=== PATIENT | male | born 1945 | race Caucasian/White ===

== ENCOUNTER 2019-12-24 12:13 | Outpatient (REF) | payer OTHER, SELFPAY ==
[2019-12-24 14:21] LABS: Prostate Specific Antigen 5.79 ng/mL (<0.05-4.0)
== END 2019-12-24 12:14 | disposition home or self-care (01) ==
LOC: HO.LAB 12:13
PROVIDERS: PCP Physician Assistant Medical; Visit Provider Urology
DX: C61 Malignant neoplasm of prostate (principal)
CPT/HCPCS: 84153

== ENCOUNTER → 2020-02-07 10:14 | Outpatient (BNVA) | payer OTHER, SELFPAY | PROVIDERS: PCP Physician Assistant Medical; Visit Provider Urology | DX: Z76.89 Persons encountering health services in other specified circumstances (principal) ==

== ENCOUNTER 2020-06-23 08:56 | Outpatient (REF) | payer MEDICARE, SELFPAY ==
[2020-06-23 10:26] LABS: Prostate Specific Antigen 6.05 ng/mL (<0.05-4.0)
== END 2020-06-23 08:57 | disposition home or self-care (01) ==
LOC: HO.LAB 08:56
PROVIDERS: PCP Physician Assistant Medical; Visit Provider Urology
DX: Z12.5 Encounter for screening for malignant neoplasm of prostate (principal); R97.20 Elevated prostate specific antigen [PSA]; C61 Malignant neoplasm of prostate
CPT/HCPCS: 36415; 84153

== ENCOUNTER → 2020-07-04 14:50 | Outpatient (BNVA) | payer OTHER, SELFPAY | PROVIDERS: Visit Provider Urology | DX: C61 Malignant neoplasm of prostate (principal) | CPT/HCPCS: 99212 ==

== ENCOUNTER 2020-09-29 14:59 | Outpatient (REF) | payer OTHER, SELFPAY ==
[2020-10-01 22:36] LABS: Percent Free Prostate Spec Ag 28 % (calc) (>25); Prostate Specific Ag Total 7.1 ng/mL (< OR = 4.0)
== END 2020-09-29 15:00 | disposition home or self-care (01) ==
LOC: HO.LAB 14:59
PROVIDERS: Visit Provider Urology
DX: Z12.5 Encounter for screening for malignant neoplasm of prostate (principal); C61 Malignant neoplasm of prostate
CPT/HCPCS: 36415; 84153; 84154

== ENCOUNTER → 2020-10-07 09:09 | Outpatient (BNVA) | payer MEDICARE, SELFPAY | PROVIDERS: PCP Physician Assistant Medical; Visit Provider Urology | CPT/HCPCS: Q3014 ==

== ENCOUNTER 2020-12-31 12:48 | Outpatient (REF) | payer OTHER, SELFPAY ==
[2020-12-31 14:54] LABS: PSA,Total (Free>4and<10) 5.71 ng/mL (0.00-4.00)
[2021-01-05 11:56] LABS: Free Prostate Spec Ag 1.2 ng/mL; Percent Free Prostate Spec Ag 24 % (calc) (>25)
== END 2020-12-31 12:49 | disposition home or self-care (01) ==
LOC: HO.LAB 12:48
PROVIDERS: Visit Provider Urology
DX: C61 Malignant neoplasm of prostate (principal)
CPT/HCPCS: 36415; 84153; 84154

== ENCOUNTER → 2021-01-06 08:41 | Outpatient (BNVA) | payer OTHER, SELFPAY | PROVIDERS: PCP Physician Assistant Medical; Visit Provider Urology ==

== ENCOUNTER 2021-05-26 13:28 | Outpatient (REF) | payer OTHER, SELFPAY ==
[2021-05-26 15:11] LABS: PSA,Total (Free>4and<10) 7.45 ng/mL (0.00-4.00)
[2021-05-28 11:47] LABS: Free Prostate Spec Ag 1.5 ng/mL; Percent Free Prostate Spec Ag 19 % (calc) (>25); Prostate Specific Ag Total 7.7 ng/mL (< OR = 4.0)
== END 2021-05-26 13:29 | disposition home or self-care (01) ==
LOC: HO.LAB 13:28
PROVIDERS: PCP Physician Assistant Medical; Visit Provider Urology
DX: Z12.5 Encounter for screening for malignant neoplasm of prostate (principal); C61 Malignant neoplasm of prostate
CPT/HCPCS: 36415; 84153; 84154

== ENCOUNTER → 2021-06-02 13:11 | Outpatient (BNVA) | payer OTHER, SELFPAY | PROVIDERS: PCP Physician Assistant Medical; Visit Provider Urology | DX: Z13.89 Encounter for screening for other disorder (principal) ==

== ENCOUNTER 2021-11-18 15:14 | Outpatient (REF) | payer OTHER, SELFPAY ==
[2021-11-18 16:59] LABS: PSA,Total (Free>4and<10) 8.22 ng/mL (0.00-4.00)
[2021-11-19 11:07] LABS: Percent Free Prostate Spec Ag 22 % (calc) (>25); Prostate Specific Ag Total 9.3 ng/mL (< OR = 4.0)
== END 2021-11-18 15:15 | disposition home or self-care (01) ==
LOC: HO.LAB 15:14
PROVIDERS: PCP Physician Assistant Medical; Visit Provider Urology
DX: N40.1 Benign prostatic hyperplasia with lower urinary tract symptoms (principal); N13.8 Other obstructive and reflux uropathy; C61 Malignant neoplasm of prostate
CPT/HCPCS: 36415; 84153; 84154

== ENCOUNTER → 2022-03-24 14:07 | Outpatient (BNVA) | payer OTHER, SELFPAY | PROVIDERS: PCP Physician Assistant Medical; Visit Provider Urology | DX: Z13.89 Encounter for screening for other disorder (principal) ==

== ENCOUNTER 2022-06-18 14:15 | Outpatient (REF) | payer OTHER, SELFPAY ==
[2022-06-18 15:03] LABS: Blood Urea Nitrogen 18 mg/dL (9-16); Estimated Glomerular Filt Rate > 60
[2022-06-18 15:35] LABS: PSA,Total (Free>4and<10) 5.92 ng/mL (0.00-4.00)
[2022-06-21 11:03] LABS: Free Prostate Spec Ag 1.4 ng/mL; Percent Free Prostate Spec Ag 23 % (calc) (>25); Prostate Specific Ag Total 6.1 ng/mL (< OR = 4.0)
== END 2022-06-18 14:16 | disposition home or self-care (01) ==
LOC: HO.LAB 14:15
PROVIDERS: Visit Provider Urology
DX: Z12.5 Encounter for screening for malignant neoplasm of prostate (principal); R39.15 Urgency of urination; C61 Malignant neoplasm of prostate
CPT/HCPCS: 36415; 82565; 84153; 84154; 84520

== ENCOUNTER 2022-09-09 13:47 | Outpatient (REF) | payer OTHER, SELFPAY ==
[2022-09-09 16:08] LABS: Prostate Specific Antigen 7.14 ng/mL (<0.05-4.0)
== END 2022-09-09 13:48 | disposition home or self-care (01) ==
LOC: HO.LAB 13:47
PROVIDERS: PCP Physician Assistant Medical; Visit Provider Urology
DX: Z12.5 Encounter for screening for malignant neoplasm of prostate (principal); C61 Malignant neoplasm of prostate
CPT/HCPCS: 36415; 84153

== ENCOUNTER 2022-09-15 15:27 | Outpatient (AMB) | payer OTHER, SELFPAY ==
--- NOTE | 2022-09-15 15:29 | MHC.OFFVIS ---
Intake Intake Visit Reasons: PSA Follow Up(SET) Intake Note: Pt presents to the office today for a PSA follow up. Allergies No Known Allergies [No Known Allergies*] Allergy (Verified 09/15/22 15:29) Medication List - Last Reconciled 09/15/22 by Chas Rogel MD sacubitril-valsartan 24-26 mg (Entresto) 1 tab PO ONCE sacubitril-valsartan 49-51 mg (Entresto) 1 tab PO ONCE HPI HPI Comments History of Present Illness Details Michel is a pleasant male. He is a patient of Dr. Monte. He is seen for follow urologic condition - prostate cancer - lower urinary tract symptoms PSA slight rise Has been off finasteride Discussed restarting Like to repeat PSA in 4 months GALDINO normal Prostate cancer group 2 current therapy active surveillance Diagnosis in July 2014 Initial diagnosis Lacey 6 and 3+4=7 Initial therapy active surveillance - did not want to pursue aggressive intervention - finasteride PSA monitoring ranges from 5.8-6.3 PSA 06/27 6.05, 09/27 7.1 28%, 12/28 5.0 24%, 05/29 7.7 19%, 11/28 8.2 22%, 06/29 5.9 23%, 09/29 7.1 Imaging - 12/29 MRI Showed 40 g prostate with PI-RADS 2. No clinically significant regions identified. Thickened bladder with prostatomegaly and bladder protrusion Continue with PSA monitoring [facility] Medical History Prostate cancer Urinary frequency Review of Systems Const Denies chills and Denies fever(s) Card Reports no additional complaints and Denies syncope Resp Denies cough GI Denies abdominal pain and Denies heartburn Reports as per HPI and Denies change in libido Neuro Denies syncope Psych Denies change in libido Endo Denies change in libido Physical Exam Const General: cooperative, healthy appearing, comfortable and no acute distress Orientation/consciousness: patient oriented x3 HEENT Face and sinus: Yes normal facial exam Mouth: moist mucous membranes Neck Neck: Yes normal visual inspection, Yes full ROM and Yes trachea midline Chest Chest palpation & inspection: normal inspection of the chest Resp Effort & Inspection: normal respiratory effort, able to speak in complete sentences and no respiratory distress GI Inspection: Yes normal to inspection Rectal Exam - Male: Yes normal sphincter tone and Yes prostate normal Male General Exam: Yes normal external exam Penis: normal penis and circumcised Meatus: meatus normal Scrotum: scrotum normal Testes: Testes normal Back/Spine/Pelvis Cervical Spine: normal cervical lordosis Thoracic/Lumbar Spine: thoracic and lumbar spine normal to inspection Skin General skin exam: no rashes or lesions noted Neuro General: patient oriented x3, gait normal, tone normal and moves all extremities Extrem General: Yes normal to inspection and Yes capillary refill normal Assessment & Plan Assessment & Plan (1) Prostate cancer: Comment: May 2014 - Gl 3 + 3, Gl 3 + 4 Therapy active surveillance Code(s): C61 - Malignant neoplasm of prostate Plan Four month follow-up PSA Orders: Orders Prostate Specific Antigen 09/09/22 C61 - Malignant neoplasm of prostate Prostate Specific Antigen 4 Months C61 - Malignant neoplasm of prostate Patient Instructions: Imaging studies, laboratory and physical exam results were discussed and reviewed in detail. No major barriers to patient understanding were identified. An opportunity to ask questions regarding the treatment plan was provided. All questions were answered. The patient expressed understanding and agreement with the above treatment plan. The patient is aware they should contact our office by phone for worsening of their current condition or the appearance of new urologic symptoms. Compliance is encouraged with any medications and followup testing that is ordered. It is a privilege to participate in the urologic care of your patient. If you have any questions or concerns regarding treatment for the above conditions, or other urologic issues, please do not hesitate to contact me. The office telephone contact is [phone]. This note is constructed using voice recognition software. While every effort has been made to ensure accuracy single needle tufting machine operator errors may have been included. Yours sincerely, Dr Chas Rogel MD, [facility] - Urology Providers of Expert, Compassionate Care for the Genitourinary System Coding Level of Care Code Est Pt Level 4 (97853) Diagnoses Prostate cancer C61
== END 2022-09-15 16:04 | disposition home or self-care (01) ==
PROVIDERS: Visit Provider Urology
DX: C61 Malignant neoplasm of prostate (principal)
CPT/HCPCS: 99214

== ENCOUNTER → 2022-09-15 15:27 | Outpatient (BNVA) | payer OTHER, SELFPAY | PROVIDERS: Visit Provider Urology | DX: C61 Malignant neoplasm of prostate (principal) | CPT/HCPCS: 99212 ==

== ENCOUNTER 2024-07-31 13:35 | Outpatient (REF) | payer OTHER, SELFPAY ==
[2024-07-31 15:31] LABS: Prostate Specific Antigen 7.62 ng/mL (<0.05-4.0)
== END 2024-07-31 13:36 | disposition home or self-care (01) ==
LOC: HO.LAB 13:35
PROVIDERS: PCP Physician Assistant Medical; Visit Provider Urology
DX: Z12.5 Encounter for screening for malignant neoplasm of prostate (principal)
CPT/HCPCS: 36415; 84153

== ENCOUNTER 2024-08-03 15:24 | Outpatient (AMB) | payer OTHER, SELFPAY ==
--- OUTSIDE RECORDS SUMMARY | 2024-03-08 07:00 | XMS_ITS | Encounter Summary ---
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 Role Phone KHUSHI TAPIA Primary [...] Name Patient's Relationship to Policy Roa AETNA [facility] (WNR) MEDICARE ADVANTAGE [facility] ([facility]) Feb 07, 2021 [id number] [phone] CYNTHIA JOSÉ PATIENT MEDICARE (WNR) MEDICARE (M) PART B Aug 07, 1998 PART B [id number] CYNTHIA JOSÉO PATIENT MEDICARE (WNR) MEDICARE (M) PART B Aug 07, 1998 PART B [id number] ARNAV,CYNTHIA DECKERO PATIENT MEDICARE (WNR) MEDICARE (M) PART B Aug 07, 1998 PART B [id number] [phone] CYNTHIA JOSÉO PATIENT MEDICARE (WNR) MEDICARE (M) PART B Aug 07, 1998 PART B [id number] 22A ARNAV,CYNTHIA DECKERO PATIENT MEDICARE (WNR) MEDICARE (M) PART B Aug 07, 1997 PART B [id number] 22A ARNAV,CYNTHIA IDIO PATIENT MEDICARE (WNR) MEDICARE (M) PART A Oct 08, 1996 PART A [id number] 22A ARNAV,CYNTHIA IDIO PATIENT MEDICARE (WNR) MEDICARE (M) PART A Oct 08, 1996 PART A [id number] ARNAV,CYNTHIA IDIO PATIENT MEDICARE (WNR) MEDICARE (M) PART A Oct 08, 1996 PART A [id number] [phone] ARNAV,CYNTHIA IDIO PATIENT MEDICARE (WNR) MEDICARE (M) PART A Oct 08, 1996 PART A [id number] ARNAV,CYNTHIA IDIO PATIENT MEDICARE (WNR) MEDICARE (M) PART A Oct 08, 1996 PART A [id number] [phone] CYNTHIA JOSÉ PATIENT Selected Encounter This section includes the information on record at [place] for the Encounter. Date/Time Encounter Type Encounter Description Reason Pro vider Source Mar 08, 2024 11:00 AM OFFICE O/P EST MOD 30 MIN GASTROENTEROLOGY ICD-10-CM R19.4 Change in bowel habit [facility] Encounter Template Text not used by [place] Assessments - Encounter Diagnoses This section includes the primary and secondary diagnoses documented for the Encounter. Date/Time Primary/Secondary Diagnosis Diagnosis Name Provider Source Mar 08, 2024 01:01 PM PRIMARY Change in bowel habit [facility] Mar 08, 2024 01:01 PM SECONDARY Carcinoma in situ of prostate [facility] Mar 08, 2024 01:01 PM SECONDARY Constipation, unspecified [facility]PH [facility] Mar 08, 2024 01:01 PM SECONDARY Diarrhea, unspecified [facility]ANDOLPH [facility] Plan of Treatment: Future Appointments (+ 6 months) and Future Tests (+/- 45 days) The Plan of Treatment section includes future care activities for the patient from all [facility] treatment[facility]ilities. This section includes future appointments and future orders which are active, pending or scheduled. Future Appointments This section includes appointments that were scheduled to occur 6 months from the date of the Encounter, up to a maximum of 20 appointments. The data comes from all [place] treatment facilities. Appointment Date/Time Appointment Type Appointme nt Facility Name Mar 30, 2024 08:15 AM AMBULATORY - MEDICINE [facility] Apr 19, 2024 01:00 PM AMBULATORY - MEDICINE [facility] Apr 25, 2024 11:00 AM AMBULATORY - SURGERY [facility] May 16, 2024 01:00 PM AMBULATORY - MEDICINE [facility] Jun 04, 2024 11:00 AM [place]ICINE [place] [facility] [place] [facility] June 07, 2024 02:30 PM AMBULATORY - MEDICINE [facility] June 13, 2024 12:45 PM AMBULATORY - [place]ICINE [place] [facility] [place] [facility] Lab Results: +/- 30 days of the encounter This section includes the Chemistry and Hematology Lab Results on record with [place] for the patient. Radiology Reports and Pathology Reports are provided separately, in subsequent sections. Lab Results This section contains the Chemistry/Hematology Results that were resulted 30 days before or 30 daysafter the date of the Encounter. Date/Time Source Result Type Result - Unit Interpretation Reference Range Specimen Type Comment Mar 09, 2024 12:00 AM [facility] CALPROTECTIN, STOOL FECES Specimen Type: FECES Comment: [...] suggested for borderline values. Test performed by [employer] [address] [place] [address] Administrative Executive: Isabela Cordova MD,PHD,CHANDRIKA Test Reported by [facility], [employer], [address] [place] [address] Aldo Chinchilla M.D., Ph.D., Director of Laboratories , [facility] [id number] Ordering Provider: NAHUN RANDOLPH APRN- Report Released Date/Time: Mar 08, 2024 11:37 AM Reporting Lab: [facility] [address] [facility] [address] Performing Lab: [facility] [address] [facility] [address] CITLALY MANCUSO CALPROTECTIN, STOOL 14 Mar 09, 2024 12:00 AM [facility] GASTROINTESTINAL (GI) PANEL BIOFIRE FECES Spe cimen Type: FECES No comment entered. Ordering Provider: NAHUN RANDOLPH APRN- Report Released Date/Time: Mar 08, 2024 11:37 AM Reporting Lab: [facility] [address] [facility] [address] Performing Lab: [facility] [address] [facility] [address] CMPY (JEJUNI,COLI,UPSALIENSIS)-BIOFIRE Not Detec steph -Not Detected [...] -Not Detected Mar 09, 2024 12:00 AM [facility] FECAL LACTOFERRIN FECES Specimen Type: FECES No comment entered. Ordering Provider: NAHUN RANDOLPH Report Released Date/Time: Mar 08, 2024 11:37 AM Reporting Lab: [facility] [address] [facility] [address] Performing Lab: [facility] [address] [facility] [address] FECAL LACTOFERRIN N Mar 08, 2024 11:45 AM [facility] CELIAC DISEASE COMPREHENSIVE PANEL SERUM Spec imen Type: SERUM Comment: INTERPRETATION:No serological evidence of celiac disease. INTERPRETATION:Total serum IgA is elevated. Consider mucosal INTERPRETATION:inflammatory conditions or underlying gammopathy. tTG IGA:REFERENCE RANGE: <15.0 U/mL tTG IGA: Value Interpretation tTG IGA: <15.0 Antibody not detected tTG IGA:> or = 15.0 Antibody detected SERUM IGA:Test Performed by [facility] Allen, SERUM IGA:[facility], SERUM IGA:[id number] [place], [place] SERUM IGA:Aldo Chinchilla M.D., Ph.D., Director of Laboratories SERUM IGA: , CLIA [id number] Ordering Provider: NAHUN RANDOLPH APRN-ELMER Report Released Date/Time: Mar 08, 2024 11:37 AM Reporting Lab: [facility] [address] [facility] [address] Performing Lab: [facility] [address] [facility] [place] IGA, SERUM QUEST 349 mg/dL H 70-320 TISSUE TRANSGLUT IgA Ab <1.0 SEE DEO W INTERPRETATION SEE NOTE Mar 08, 2024 11:45 AM [facility] CBC BLOO D Specimen Type: BLOOD No comment entered. Ordering Provider: NAHUN RANDOLPH Report Released Date/Time: Mar 08, 2024 11:37 AM Reporting Lab: [facility] [address] [facility] [address] Performing Lab: [facility] [address] [facility] [address] WBC 7.1 10*3/uL 4.0-11.0 RBC 5.12 10*6/uL 4.4-5.9 HGB 14.4 g/dL 13.4-17.5 HEMATOCRIT 43.8 40-52 MCV 85.6 fL 82-98 MCH 28.2 pg 27.0-33.0 MCHC 32.9 g/dL 32.0-36.0 PLT 404 10*3/uL H 140-400 RDW-CV 15.3 H 11.5-14.5 MPV 8.7 fL 6.6-10.6 Mar 08, 2024 11:45 AM [facility] BASIC METABOLIC PANEL PLASMA Specimen Type: PL ASMA No comment entered. Ordering Provider: NAHUN RANDOLPH APRN- Report Released Date/Time: Mar 08, 2024 11:37 AM Reporting Lab: [place] [address] [address] Performing Lab: [place] [address] UREA NITROGEN 14 mg/dL 6-22 CALCIUM 8.9 mg/dL 8.5-10.5 CREATININE, SERUM OR PLASMA 0.73 mg/dL 0 .60-1.30 GLUCOSE 92 mg/dL 70-100 SODIUM (SERUM/PLASMA) 139 mmol/L 134-145 POTASSIUM 3.9 mmol/L 3.6-5.2 CHLORIDE 110 mmol/L 100-111 CO2 20 mmol/L L 21-29 EGFRCr >90 Mar 08, 2024 11:45 AM [facility] HEPATIC FUNCTION PANEL PLASMA Specimen Type: P LASMA No comment entered. Ordering Provider: NAHUN RANDOLPH APRN- Report Released Date/Time: Mar 08, 2024 11:37 AM Reporting Lab: [place] [address] [address] [facility] [address] Performing Lab: [place] [address] ALBUMIN 3.8 g/dL 3.4-5.2 ALKALINE PHOSPHATASE 61 U/L 40-150 ALT 14 U/L 0-55 AST 29 U/L 13-40 BILIRUBIN, TOTAL 0.4 mg/dL 0.2-1.2 DIRECT BILIRUBIN 0.1 mg/dL 0.0-0.5 PROTEIN, TOTAL 7.2 g/dL 6.2-8.5 A/G RATIO 1.1 Mar 08, 2024 11:45 AM [facility] MAGNESIUM PLAS MA Specimen Type: PLASMA No comment entered. Ordering Provider: NAHUN RANDOLPH Report Released Date/Time: Mar 08, 2024 11:37 AM Reporting Lab: [facility] [address] [facility] [address] Performing Lab: [facility] [address] MAGNESIUM 1.8 mg/dL 1.5-2.6 Mar 08, 2024 11:45 AM [facility] TSH PLAS MA Specimen Type: PLASMA No comment entered. Ordering Provider: NAHUN RANDOLPH Report Released Date/Time: Mar 08, 2024 11:37 AM Reporting Lab: [facility] [address] [facility] [address] Performing Lab: [facility] [address] TSH 3.8760 u[IU]/mL 0.350-4.800 Mar 08, 2024 11:45 AM [facility] SED RATE BLOO D Specimen Type: BLOOD No comment entered. Ordering Provider: NAHUN RANDOLPH Report Released Date/Time: Mar 08, 2024 11:37 AM Reporting Lab: [facility] [address] [facility] [address] Performing Lab: [facility] [address] [place] [id number] SED RATE 18 mm/h 0-20 Vital Signs: All taken on the encounter date This section contains inpatient and outpatient Vital Signs collected on the date of the Encounter. Date/Time Temperature Pulse Blood Pressure Respiratory Rate SP02 Pain Height Weight Body Mass Index Source Mar 08, 2024 10:21 AM 97.7 55 164/63 18 98 0 63 137.7 24 [facility] Advance Directives: All historical and current Section Date Range: From patient's date of to the date document was created. This section includes ALL of a patient's completed or amended [place] Advance and Rescinded Directives. The entries below indicate that a directive exists for the patient, but an actual copy is not included with this document. The data comes from all [place] facilities. Date Advance Directives Provider Source June [...] the Encounter. The data comes from all [place] treatment facilities. Date/Time Pathology Report Provider Source Mar 09, 2024 12:00 AM LR MICROBIOLOGY RE PORT: Reporting Lab: [facility] [CLIA# [id number]] [address] [place] [address] Accession [UID]: [id number] [[id number]] Received: Mar 09, 2024@13:43 Collection sample: STOOL Collection date: Mar 09, 2024 00:00 Site/Specimen: FECES Provider: NAHUN RANDOLPH Test(s) ordered: O&P (STOOL)................... completed: Mar 15, 2024 07:30 * PARASITOLOGY FINAL REPORT => Mar 15, 2024 07:30 TECH CODE: [id number] Parasitology Remark(s): NO OVA AND PARASITES SEEN PERFORMED BY:[employer] [place], [address] [address] [place], [place] =--=--=--=--=--=--=--=--=- -=--=--=--=--=--=--=--=--= --=--=--=--=--=--=--=--=-- Performing Laboratory: Parasitology Report Performed By: [facility] [CLIA# [id number]] [address] [place] [address] ANSHUL DURANT [facility] Mar 09, 2024 12:00 AM LR MICROBIOLOGY RE PORT: Reporting Lab: [facility] [CLIA# [id number]] [address] [place] [address] Accession [UID]: [id number] [[id number]] Received: Mar 09, 2024@13:43 Collection sample: STOOL Collection date: Mar 09, 2024 00:00 Site/Specimen: FECES Provider: NAHUN RANDOLPH Test(s) ordered: O&P (STOOL)................... completed: Mar 15, 2024 07:30 * PARASITOLOGY FINAL REPORT => Mar 15, 2024 07:30 TECH CODE: [id number] Parasitology Remark(s): NO OVA AND PARASITES SEEN PERFORMED BY:[employer] [place], [address] [address] [place] =--=--=--=--=--=--=--=--=- -=--=--=--=--=--=--=--=--= --=--=--=--=--=--=--=--=-- Performing Laboratory: Parasitology Report Performed By: [facility] [CLIA# [id number]] [address] [place] [address] ANSHUL JARAMILLO [facility] Encounter Notes: All associated encounter notes This section contains the clinical notes associated to the Encounter. Date/Time Encounter Note(s) Provider Source Mar 08, 2024 11:51 AM NURSING OUTPATIENT NOTE: LOCAL TITLE: NURSING CLINIC VISIT STANDARD TITLE: NURSING OUTPATIENT NOTE DATE OF NOTE: MAR 08, 2024@11:51 ENTRY DATE: MAR 08, 2024@11:52:02 AUTHOR: MERLENE AJ EXP COSIGNER: URGENCY: STATUS: COMPLETED The following blood tests were drawn as ordered and sent to lab via pneumatic systems. CBC Basic Metabolic Panel Magnesium Sed Rate Celiac Disease Comprehensive /shea/ Merlene Aj Health Techician Signed: 03/08/2024 12:43 MERLENE AJ [facility] Mar 08, 2024 11:06 AM GASTROENTEROLOGY CONSULT: LOCAL TITLE: GASTROENTEROLOGY CONSULT STANDARD TITLE: GASTROENTEROLOGY CONSULT DATE OF NOTE: MAR 08, 2024@11:06 ENTRY DATE: MAR 08, 2024@11:06:25 AUTHOR: NAHUN RANDOLPH APRN EXP COSIGNER: LOLA FRANKLIN URGENCY: STATUS: COMPLETED GASTROENTEROLOGY CONSULT Has ADDENDA Chief Complaint(s)/ Reason for referral: Referred by Dr. Tapia for constipation HPI: 78y/o MALE travelling referred to clinic for constipation. He complains of no bowel movement for 3-4 days followed by diarrhea. First bowel movement is [place] 4 and gradually transitions to [place] 6/7. This is associated with tenesmus. When no bowel movement will have excessive bloating. Symptoms started a few months ago. He denies abdominal pain, n/v, BRBPR, melena, or weight loss. He took magnesium citrate in hopes of clearing bowels and a return to normal bowel movement but symptoms unchanged. He had ER visit at [facility] 02/21/24 related to these symptoms. A CT of abdomen/pelvis was obtained showing stasis in large bowel and an enlarged nodular prostate with largest nodule measure up to 2 cm. He has known history prostate cancer followed with active surveillance but has not been seen by urology in over a year. Notes was told significant urinary retention while in ER. He is concerned this may be cause of his symptoms. Last colonoscopy 2018 notable for internal hemorrhoids. Denies history polyps. Family history positive for CRC in father (80's) and uncle (70's). ROS: Systemic: No fever. No rigor. No night sweat. No swollen nodes. No fatigue. No excessive weight loss Head and neck: No visual change. No auditory symptoms. No oral complaints. Lungs: No dyspnea. No wheezing. No productive cough. Heart: No chest pain. No palpitation. GI: see HPI : No dysuria. No hematuria. Musculoskeletal: No significant arthralgia. No edema. No new onset of back pain. Skin: No new rash. No jaundice. Allergy: PMH: Active Problems Vitamin D deficiency E55.9 Vitamin B12 deficiency D51.9 Prostate cancer D07.5 PSH: Right ankle Right knee Appendectomy Inguinal hernia b/l Splenectomy FHx: Uncle: CRC 70's Father: CRC 80's SOCIAL HISTORY: Tobacco: Denies Alcohol: 1 drink daily, seltzer PHYSICAL EXAMINATION: Temperature: 97.7 F [36.5 C] (03/08/2024 10:21) Pulse: 55 (03/08/2024 10:21) Respiration: 18 (03/08/2024 10:21) Blood pressure: 164/63 (03/08/2024 10:21) Height: 63 in [160.0 cm] (03/08/2024 10:21) Weight: 137.7 lb [62.46 kg] (03/08/2024 10:21) Body Mass Index is 24.4 General: Alert. Oriented. No acute distress. Head & Neck: Anicteric sclera. Non-pale conjunctiva. No thyromegaly. No adenopathy. Respiratory: Lungs CTAB. No wheezes, rhonchi, or rubs. Cardiovascular: Normal rate and rhythm. S1 and S2 no murmur, gallop, or rub. Adequate pulses. Gastrointestinal: No significant distention. Normal bowel sounds. On palpation: Soft. Non-tender. No guarding. No rebound tenderness. Musculoskeletal: No significant deformity. No obvious rash. No significant edema. Neurologic: Normal speech. No gross focal motor deficit. No significant tremor. Psychiatric: Cooperative. LABS: HCT: 44.7 (03/07/20 10:20) HGB: 14.6 (03/07/20 10:20) MCHC: 32.5 (03/07/20 10:20) MCV: 85.6 (03/07/20 10:20) PLT: 319 (03/07/20 10:20) RBC: 5.23 (03/07/20 10:20) WBC: 6.7 (03/07/20 10:20) BUN: 13 (03/20/19 08:35) 11 (03/07/20 10:20) CALCIUM: 9.3 (03/20/19 08:35) 9.0 (03/07/20 10:20) CL: 107 (03/20/19 08:35) 104 (03/07/20 10:20) CO2: 26 (03/20/19 08:35) 27 (03/07/20 10:20) GLUCOSE: 104 (03/20/19 08:35) 94 (03/07/20 10:20) K: 4.4 (03/20/19 08:35) 4.8 (03/07/20 10:20) S CREAT: 0.80 (03/20/19 08:35) 0.80 (03/07/20 10:20) SODIUM: 141 (03/20/19 08:35) 140 (03/07/20 10:20) A/G Rat: 1.2 (03/07/20 10:20) ALBUMIN: 3.9 (03/07/20 10:20) ALK MARIANA: 66 (03/07/20 10:20) AST: 24 (03/07/20 10:20) Alt: 19 (03/07/20 10:20) BILI,T: 0.7 (03/07/20 10:20) D BILI: 0.2 (03/07/20 10:20) PROTEIN: 7.2 (03/07/20 10:20) No data available for: ISTAT-INR No data available for: LIPASE (CALLES) Endoscopy: No esophagogastroduodenoscopy procedure found No colonoscopy procedure found IMAGING: CT Abdomen: No Radiology exams found. Ultrasound of Abdomen: No Radiology exams found. MRI: No data available for: MRI KIDNEY WITH CONTRAST IMPRESSIONS: Change in bowel habits Alternating constipation and diarrhea Prostate Cancer This is pleasant 78 y/o male with alternating constipation and diarrhea for the past few months. Unclear etiology. I will obtain diarrhea workup to exclude colitis, malabsorption, infection, and celiac disease. Colonoscopy to rule CRC or extrinsic compression of bowel (possible from Prostate Ca)creating outlet obstruction. Traphill lost to follow up with urology. He was displeased with urologist when last seen and did not return. Imaging was not prostate specific and it is unclear if CT findings suggest progression. agreeable to urology consult for evaluation. RECOMENDATIONS: - Obtain colonoscopy - Start psyllium 1 tbs daily - Labs: CBC, BMP, MG, LFT, TSH, CRP, ESR, celiac panel - Stool: GI biofire, Stool O&P, c. diff, calprotectin, lactoferrin, fecal fat - I will enter urology consult so can establish care. Will likely need to complete additional evaluation when he return to [place] as he is only here until May. - RTC 6 weeks, telephone ok Thank you for your kind referral and the opportunity to participate in the care of your patient. Gastroenterology and Hepatology General Medicine I attest the diagnoses above are current and were documented through the use of the VISN 8 Medical Diagnoses template. CLINICAL REMINDER ACTIVITY: Outpatient Med Reconciliation: ESSENTIAL MED LIST REVIEW MRT5 - Allergies/ADRs FACILITY ALLERGY/ADR -------- [place] [facility] [place] [facility] L[facility]IN[facility]RIL [facility] No Known Allergies MRR1 - Med Reconciliation INCLUDED IN THIS LIST: Alphabetical list of active outpatient prescriptions dispensed from this [place] (local) and dispensed from another [place] or [facility] facility (remote) as well as inpatient orders (local pending and active), local clinic medications, locally documented non-VA medications, and local prescriptions that have or been discontinued in the past 90 days. Non-VA Meds Last Documented On: Data not found NOTE The display of VA prescriptions dispensed from another [place] or [facility] facility (remote) is limited to active outpatient prescription entries matched to National Drug File at the originating site and may not include some items such as investigational drugs, compounds, etc. NOT INCLUDED IN THIS LIST: Medications self-entered by the patient into personal health records (i.e. [employer]) are NOT included in this list. Non-VA medications documented outside this [place], remote inpatient orders (regardless of status) and remote clinic medications are NOT included in this list. The patient and provider must always discuss medications the patient is taking, regardless of where the medication was dispensed or obtained. -- Remote METFORMIN HCL 500MG 24HR TAB,SA TAKE ONE TABLET BY MOUTH ONCE DAILY FOR TYPE 2 DIABETES MELLITUS Last Filled: 01/04/24 (Active at [facility]) Rx Expiration Date: 01/04/25 Days Supply: 90 OUTPT PSYLLIUM ORAL PWD (Status = Pending) MIX 3 TEASPOONFULS IN 8OZ LIQUID DAILY Login Date: 03/08/24 Qty/Days Supply: 1170/90 Refills Ordered: 1 Remote SACUBITRIL 24MG/VALSARTAN 26MG TAB TAKE 1 TABLET BY MOUTH TWICE DAILY FOR CHRONIC HEART FAILURE NEW LOWER DOSE Last Filled: 11/25/23 (Hold at [facility]) Rx Expiration Date: 09/06/24 Days Supply: 90 Remote SACUBITRIL 49MG/VALSARTAN 51MG TAB TAKE 1 TABLET BY MOUTH TWICE DAILY Last Filled: 12/15/23 (Active at [facility]) Rx Expiration Date: 12/14/24 Days Supply: 90 -- SUPPLIES -- The patient brought in their medication list from home to review. Reconciliation of VA and Non-VA Meds Done - Essential Medication List Review (EMLR) was reviewed and medication reconciliation education was discussed. A current list of reconciled medications was provided and explained to the patient/family/caregiver. The patient/family/caregiver was reminded to discard old lists. I have encouraged the , director day care center or family member to maintain, update, and take ownership of the current medication information provided and encouraged them to actively participate in the decision making of the treatment plan. Comment: Family/caregiver not present. No medication discrepancies identified. Essential Medication List Review was reviewed. Medication list updated to include new medication(s). I certify medication education and counseling for newly prescribed medication has been tailored for the , director day care center, or family members needs by outlining why the medication was prescribed, how they should take it, how long they will take it, what to expect from it, and what happens if they do not take the medication as prescribed. New Medications: psyllium /shea/ NAHUN AMADOR POKE IN-BC Signed: 03/08/2024 13:02 /shea/ LOLA FRANKLIN GI/HEPATOLOGY PHYSICIAN Cosigned: 03/09/2024 13:32 03/09/2024 ADDENDUM STATUS: COMPLETED Agree with evaluation, assessment and plan outlined by GI provider Nahun Randolph APRN. /shea/ LOLA FRANKLIN GI/HEPATOLOGY PHYSICIAN Signed: 03/09/2024 13:32 NAHUN RANDOLPH APRN-ELMER [facility]
--- NOTE | 2024-08-03 15:26 | A.OFFVIS_ITS ---
Intake Visit Reasons: prostate cancer(psa?) Intake Note: Patient is present for PROSTATE CANCER PSA Urology Medication:NONE Antibiotic Allergy:NONE Blood Thinner:NONE Waitress Required: No Allergies No Known Allergies (No Known Allergies*) Allergy (Verified 08/03/24 15:27) HPI Comments Details: Michel is a pleasant male. He is a patient of Dr. Monte. He is seen for follow urologic condition - prostate cancer - lower urinary tract symptoms PSA has remained in similar range Previously high free% Has been having some difficulty with urination Discussed trial of alpha-jaycee Had been seen in [place] and recommended repeat prostate MRI This can be organized Prostate cancer group 2 current therapy active surveillance Diagnosis in July 2014 Initial diagnosis Lacey 6 and 3+4=7 Initial therapy active surveillance - did not want to pursue aggressive intervention - finasteride PSA monitoring ranges from 5.8-8.2 PSA 06/27 6.05, 09/27 7.1 28%, 12/28 5.0 24%, 05/29 7.7 19%, 11/28 8.2 22%, 06/29 5.9 23%, 09/29 7.1, 08/01 7.6 Imaging - 12/29 MRI Showed 40 g prostate with PI-RADS 2. No clinically significant regions identified. Thickened bladder with prostatomegaly and bladder protrusion Continue with PSA monitoring [facility] Medical History Prostate cancer Urinary frequency Review of Systems Const Denies chills and Denies fever(s) Card Reports no additional complaints and Denies syncope Resp Denies cough GI Denies abdominal pain and Denies heartburn Reports as per HPI and Denies change in libido Neuro Denies syncope Psych Denies change in libido Endo Denies change in libido Physical Exam Const General: cooperative, healthy appearing, comfortable and no acute distress Orientation/consciousness: patient oriented x3 HEENT Face and sinus: Yes normal facial exam Mouth: moist mucous membranes Neck Neck: Yes normal visual inspection, Yes full ROM and Yes trachea midline Chest Chest palpation & inspection: normal inspection of the chest Resp Effort & Inspection: normal respiratory effort, able to speak in complete sentences and no respiratory distress GI Inspection: Yes normal to inspection Back/Spine/Pelvis Cervical Spine: normal cervical lordosis Thoracic/Lumbar Spine: thoracic and lumbar spine normal to inspection Skin General skin exam: no rashes or lesions noted Neuro General: patient oriented x3, gait normal, tone normal and moves all extremities Extrem General: Yes normal to inspection and Yes capillary refill normal Assessment & Plan Assessment & Plan (1) Prostate cancer: Comment: May 2014 - Gl 3 + 3, Gl 3 + 4 Therapy active surveillance Code(s): C61 - Malignant neoplasm of prostate Category: Medical (2) Urinary frequency: Code(s): R35.0 - Frequency of micturition Category: Medical (3) BPH w urinary obs/LUTS: Code(s): N40.1 - Benign prostatic hyperplasia with lower urinary tract symptoms; N13.8 - Other obstructive and reflux uropathy Category: Medical Plan Start tamsulosin Prostate MRI Orders: Orders Prostate Specific Antigen 07/31/24 Z12.5 - Encounter for screening for malignant neoplasm of prostate MR Prostate wo/w con Today C61 - Malignant neoplasm of prostate Medications: New tamsulosin (Flomax) mail to vet 0.4 mg PO BEDTIME 90 tabs 0RF 90 days N13.8 - Other obstructive and reflux uropathy, N40.1 - Benign prostatic hyperplasia with lower urinary tract symptoms Patient Instructions: This note is constructed using voice recognition software. While every effort has been made to ensure accuracy sheeter machine operator errors may have been included. Imaging studies, laboratory and physical exam results were discussed and reviewed in detail. No major barriers to patient understanding were identified. An opportunity to ask questions regarding the treatment plan was provided. All questions were answered. The patient expressed understanding and agreement with the above treatment plan. The patient is aware they should contact our office by phone for worsening of their current condition or the appearance of new urologic symptoms. Compliance is encouraged with any medications and followup testing that is ordered. It is a privilege to participate in the urologic care of your patient. If you have any questions or concerns regarding treatment for the above conditions, or other urologic issues, please do not hesitate to contact me. The office telephone contact is [phone]. Sincerely, Dr Chas Rogel MD, [facility] - Urology Compassionate Specialist Care for the Genitourinary System Coding Level of Care Code Est Pt Level 4 (25842) Complex EM visit Add On G2211 Diagnoses Prostate cancer C61 Urinary frequency R35.0 BPH w urinary obs/LUTS N40.1; N13.8
== END 2024-08-03 15:59 | disposition home or self-care (01) ==
LOC: HO.HUSH 15:25
PROVIDERS: PCP Physician Assistant Medical; Visit Provider Urology
DX: C61 Malignant neoplasm of prostate (principal); N40.1 Benign prostatic hyperplasia with lower urinary tract symptoms; R35.0 Frequency of micturition; N13.8 Other obstructive and reflux uropathy
CPT/HCPCS: 99214; G2211

== ENCOUNTER → 2024-08-03 15:24 | Outpatient (BNVA) | payer OTHER, SELFPAY | PROVIDERS: PCP Physician Assistant Medical; Visit Provider Urology | DX: R35.0 Frequency of micturition (principal); Z12.5 Encounter for screening for malignant neoplasm of prostate; N13.8 Other obstructive and reflux uropathy; N40.1 Benign prostatic hyperplasia with lower urinary tract symptoms; C61 Malignant neoplasm of prostate | CPT/HCPCS: 99212 ==

== ENCOUNTER 2024-09-27 08:33 | Outpatient (REF) | payer OTHER, SELFPAY ==
--- NOTE | ~2024-09-27 | MR_ITS ---
EXAMINATION: MR PROSTATE WITHOUT THEN WITH IV CONTRAST, MR EXAM UNLISTED HISTORY: C61 - Malignant neoplasm of prostate TECHNIQUE: 1.5T body coil survey of the pelvis was performed. Phase array coil imaging of the prostate was performed in multiplanar high resolution axial, coronal, sagittal fast spin echo T2 and axial T1 weighted imaging sequences. Axial diffusion imaging at intermediate and high field performed with ADC mapping. Next, 6 mL Gadavist was given by intravenous infusion, and dynamic axial imaging performed. 3-D reconstructions and post-processing were performed on an independent workstation by the radiologist for biopsy planning using image fusion. COMPARISON: Comparison is made with the prior examination dated 01/06/2022. CLINICAL DATA: Most recent PSA: 9.15 ng/mL on 09/29/2024. PSA Density: 0.15 ng/mL squared Prostate Biopsy: Positive biopsy 07/2014 with a Lacey score of 3+4 = 7. FINDINGS: Prostate size: 5.8 x 5.0 x 4.1 cm. Calculated prostate volume is 61.8 mL. Hemorrhage: None. Transitional Zone: There is marked heterogeneous nodular hypertrophy of the transitional zone. Peripheral Zone: There is an area of interest in the peripheral zone as described below: Area of interest #1: Location: Left posteromedial and posterolateral peripheral zone in the mid gland/apex measuring approximately 12 mm (series 7, images 16-18) DWI PI-RADS v2.1 score: 3 T2 PI-RADS v2.1 score: 3 DCE PI-RADS v2.1 score: + Overall PI-RADS v2.1 score: 4 Capsular contact: yes Extracapsular extension: None Seminal vesicle invasion: None Neurovascular bundle involvement: None Seminal Vesicles/Ejaculatory Ducts: Symmetric and normal in signal and caliber. Pelvic Lymph Nodes: No obturator or internal iliac lymph nodes meeting size criteria for adenopathy. Marrow Signal: Normal marrow signal and enhancement without focal lesion identified. MR/MR Prostate wo/w con IMPRESSION: Area of interest in the left posteromedial and posterolateral peripheral zone in the mid gland/apex, suspicious for clinically significant prostate carcinoma. PI-RADS 4: High (clinically significant cancer is likely to be present) PI-RADS Assessment Categories PI-RADS 1: Very low (clinically significant cancer is highly unlikely to be present) PI-RADS 2: Low (clinically significant cancer is unlikely to be present) PI-RADS 3: Intermediate (the presence of clinically significant cancer is equivocal) PI-RADS 4: High (clinically significant cancer is likely to be present) PI-RADS 5: Very high (clinically significant cancer is highly likely to be present) [employer]. MR Prostate Imaging Reporting and Data System version 2.1. [email or web address]-Safety/[email or web address]/ Electronically signed by: Russ Felder MD 10/01/2024 07:18 AM EDT
--- OUTSIDE RECORDS SUMMARY | 2024-09-27 09:39 | XMS_ITS | Clinical Summary ---
Author Organization [facility] Address [address] [place] [address] Care Team Providers Care Stations Superintendent Name Role Phone Desean Monte Primary Care Provider [phone] Social History Tobacco Use Types Packs/Day Years Used Date Smoking Tobacco: Never Assessed Sex and Gender Information Value Date Recorded Sex Assigned at Not on file Gender Identity Not on file Sexual Orientation Not on file Plan of Treatment Health Maintenance Due Date Last Done Comments Hepatitis C Screening 1945 COVID-19 Vaccine (#1) [birth year]/30/1946 Depression Screening 1959 Preventative Health Evaluation 11/29/1965 DTap / Tdap / Td (1 - Tdap) 11/29/1966 Shingrix-Zoster Vaccine (1 of 2) 11/29/1997 Fall Risk Assessment 11/29/2012 Pneumococcal Vaccine (1 of 1 - PCV) 11/29/2012 RSV Adult > 60+ Yrs or Pregn ant (1 - 1-dose 75+ series) 11/29/2022 Influenza Vaccine (#1) 2024 Hepatitis B Vaccines Aged Out No long er eligible based on patient's age to complete this topic RSV Ped < 20 months Aged Out No longe r eligible based on patient's age to complete this topic Care Teams Stations Superintendent Relationship Specialty Start Date End Date Desean Monte PA [address] [place] [address] PCP - General Physician Senior Merchandiser 07/17/15
== END 2024-09-27 08:34 | disposition home or self-care (01) ==
LOC: HO.MRI 08:33
PROVIDERS: PCP Physician Assistant Medical; Visit Provider Urology
DX: C61 Malignant neoplasm of prostate (principal)
CPT/HCPCS: 72197; 76377; A9585

== ENCOUNTER → 2024-09-27 08:33 | Outpatient (BNV) | payer OTHER, SELFPAY | PROVIDERS: PCP Physician Assistant Medical; Visit Provider Radiology Diagnostic Radiology | DX: C61 Malignant neoplasm of prostate (principal) | CPT/HCPCS: 72197; 76377 ==

== ENCOUNTER 2024-09-29 07:34 | Outpatient (REF) | payer OTHER, SELFPAY ==
--- OUTSIDE RECORDS SUMMARY | 2024-09-29 07:37 | XMS_ITS | Clinical Summary ---
Author Organization [facility] Address [address] [place] [address] Care Team Providers Care Wine Specialist Name Role Phone Desean Monte Primary Care Provider [phone] Social History Tobacco Use Types Packs/Day Years [...] age to complete this topic Care Teams Wine Specialist Relationship Specialty Start Date End Date Desean Monte PA [address] [place] [address] PCP - General Physician [employer] 07/17/15
[2024-09-29 09:40] LABS: Prostate Specific Antigen 9.15 ng/mL (<0.05-4.0)
== END 2024-09-29 07:35 | disposition home or self-care (01) ==
LOC: HO.LAB 07:34
PROVIDERS: PCP Physician Assistant Medical; Visit Provider Urology
DX: Z12.5 Encounter for screening for malignant neoplasm of prostate (principal); R97.20 Elevated prostate specific antigen [PSA]
CPT/HCPCS: 36415; 84153

== ENCOUNTER 2024-10-02 13:19 | Outpatient (AMB) | payer OTHER, SELFPAY ==
--- OUTSIDE RECORDS SUMMARY | 2023-11-10 06:30 | XMS_ITS | Encounter Summary ---
Author Name [facility] [place] [facility] [place] [facility] [place] Address [address] [place] [id number] Care Team Providers Care Mogul Operator Name Role Phone KHUSHI TAPIA Primary Care Provider Unavailabl e Insurance Providers: All historical and current Section Date Range: From patient's date of to the date document was created. This section includes the names of all active insurance providers for the patient. Insurance Provider Type of Coverage Plan Name Start of Policy Coverage End of Policy Coverage Group Number Member ID Insurance Provider's Telephone Number Policy Roa's Name Patient's Relationship to Policy Roa [employer] [facility] (R) MEDICARE ADVANTAGE [facility] ([facility]) Feb 07, 2021 [id number] [phone] CYNTHIA JOSÉO PATIENT MEDICARE (WNR) MEDICARE (M) PART B Aug 07, 1998 PART B [id number] CYNTHIA JOSÉO PATIENT MEDICARE (WNR) MEDICARE (M) PART B Aug 07, 1998 PART B [id number] [phone] ARNAV,CYNTHIA DECKERO PATIENT MEDICARE (WNR) MEDICARE (M) PART B Aug 07, 1998 PART B [id number] CYNTHIA JOSÉO PATIENT MEDICARE (WNR) MEDICARE (M) PART B Aug 07, 1998 PART B [id number] ARNAV,CYNTHIA IDIO PATIENT MEDICARE (WNR) MEDICARE (M) PART B Aug 07, 1997 PART B [id number] [phone] ARNAV,CYNTHIA IDIO PATIENT MEDICARE (WNR) MEDICARE (M) PART A Oct 08, 1996 PART A [id number] 22A ARNAV,EL IDIO PATIENT MEDICARE (WNR) MEDICARE (M) PART A Oct 08, 1996 PART A [id number] ARNAV,EL IDIO PATIENT MEDICARE (WNR) MEDICARE (M) PART A Oct 08, 1996 PART A [id number] [phone] ARNAV,CYNTHIA IDIO PATIENT MEDICARE (WNR) MEDICARE (M) PART A Oct 08, 1996 PART A [id number] ARNAV,CYNTHIA IDIO PATIENT MEDICARE (WNR) MEDICARE (M) PART A Oct 08, 1996 PART A [id number] 22A ARNAV,CYNTHIA DECKERO PATIENT Selected Encounter This section includes the information on record at [place] for the Encounter. Date/Time Encounter Type Encounter Description Reason Provider Source Nov 10, 2023 10:30 AM OFFICE O/P EST LOW 20 MIN PRIMARY CARE/MEDICINE ICD-10-CM R60.9 Edema, unspecified KHUSHI TAPIA Faustina Encounter Template Text not used by [place] Assessments - Encounter Diagnoses This section includes the primary and secondary diagnoses documented for the Encounter. Date/Time Primary/Secondary Diagnosis Diagnosis Name Provider Source Nov 10, 2023 10:56 AM PRIMARY Edema, unspecified KHUSHI TAPIA [place] Plan of Treatment: Future Appointments (+ 6 months) and Future Tests (+/- 45 days) The Plan of Treatment section includes future care activities for the patient from all [place] treatmentfacilities. This section includes future appointments and future orders which are active, pending or scheduled. Future Appointments This section includes appointments that were scheduled to occur 6 months from the date of the Encounter, up to a maximum of 20 appointments. The data comes from all [place] treatment facilities. Appointment Date/Time Appointment Type Appointme nt Facility Name Nov 16, 2023 09:00 AM AMBULATORY - NONE [place] [facility] Dec 01, 2023 12:30 PM AM[facility]UL[facility]ICINE [facility] Dec 09, 2023 09:00 AM AMBULATORY - NONE [facility] [place] [facility] Jan 04, 2024 01:00 PM AMBULATORY - MEDICINE [facility] Mar 08, 2024 11:00 AM AMBULATORY - MEDICINE [facility] Mar 30, 2024 08:15 AM AMBULATORY - MEDICINE [facility] Apr 19, 2024 01:00 PM AMBULATORY - MEDICINE [facility] Apr 25, 2024 11:00 AM AMBULATORY - SURGERY [facility] Social History: Smoking Status (Most current) and Tobacco Use (All prior to encounter date) This section includes the most current, and the historical, smoking and tobacco- related health factors from the [place] facility where the Encounter took place. Current Smoking Status This section includes the most current smoking, or tobacco-related health factor, from the [place] facility where the Encounter took place. Date/Time Current Smoking Status Comment Gabriela ity Nov 10, 2023 10:30 AM VA-TOBACCO NEVER USED [facility] Tobacco Use History This section includes a history of the smoking, or tobacco-related health factors, that were collected on or before the date of the Encounter. The data comes from the [place] facility where the Encounter took place. Date/Time Smoking Status/Tobacco Use Comment F acility Sep 20, 2022 01:00 PM VA-TOBACCO NEVER USED [facility] Nov 12, 2020 10:00 AM VA-TOBACCO NEVER USED [facility] Oct 18, 2019 01:30 PM VA-TOBACCO NEVER USED [place] Feb 03, 2018 09:51 AM VA-TOBACCO NEVER USED [facility] Jul 21, 2017 11:14 AM LIFETIME NON-TOBACCO USER [facility] June 29, 2016 08:58 AM LIFETIME NON-TOBACCO USER [facility] Jan 21, 2015 03:25 PM LIFETIME NON-TOBACCO USER [facility] Apr 22, 2004 02:00 PM LIFETIME NON-SMOKER [facility] Advance Directives: All historical and current Section Date Range: From patient's date of to the date document was created. This section includes ALL of a patient's completed or amended [place] Advance and Rescinded Directives. The entries below indicate that a directive exists for the patient, but an actual copy is not included with this document. The data comes from all [place] facilities. Date Advance Directives Provider Source June 18, 2010 ADVANCE DIRECTIVE AMAYA REYES June 08, 2010 ADVANCE DIRECTIVE AMAYA REYES Radiology Reports: +/- 30 days of the encounter Radiology Reports For cases when an order for radiology services may have been completed prior to the date of the Encounter, the report list includes the Radiology Reports that were completed up to 30 days before dateof the Encounter. For cases when an order for radiology services may have been completed after the date of the Encounter, the report list also includes the Radiology Reports that were completed up to30 days after date of the Encounter. The data comes from all [place] treatment facilities. Date/Time Radiology Report Provider Source Dec 09, 2023 08:55 AM DUPLEX SCAN: NON-INVAS. CAROTID IMAGING: INDU JOSÉ [id number] M Exm Date: DEC 09, 2023@08:55 Req Phys: KHUSHI TAPIA Loc: CWM/SO/PACT 3 WH (Req'g Loc) Img Loc: ULTRASOUND Service: [place] [address] (Case [id number] COMPLETE) DUPLEX SCAN: NON-INVAS. CAROTID I(US Detailed) CPT:07288 Reason for Study: any carotid or vertebral artery stenosis Clinical History: ct of brain showed some atherisclerotic changes brain Report Status: Verified Date Reported: DEC 09, 2023 Date Verified: DEC 09, 2023 Cable Braider E-Sig: Report: DUPLEX SCAN: NON-INVAS. CAROTID IMAGING HISTORY: any carotid or vertebral artery stenosis . COMPARISON: 2016 TECHNIQUE: Duplex imaging of the carotid arteries was performed at the local [place] facility utilizing grayscale, color Doppler and spectral analysis. images were received by the [place] National Teleradiology Program (NTP) for interpretation. FINDINGS: Velocities reported as peak systolic velocity/end-diastolic velocity (PSV/EDV). RIGHT SIDE: Plaque: Endothelial hyperplasia and mild plaquing at the origin of the ICA, and at the distal CCA Right Proximal CCA (cm/sec): 82/8 Right Mid CCA (cm/sec): / Right Distal CCA (cm/sec): 75/9 Right Carotid Bifurcation (cm/sec): / Right External CA (cm/sec): 72/12 Right Proximal ICA (cm/sec): 70/15 Right Mid ICA (cm/sec): / Right Distal ICA (cm/sec): 56/11 Right Vertebral Artery: Antegrade Right ICA/CCA Ratio: 0.8 LEFT SIDE: Plaque: Mild plaquing at the bifurcation and origin of the ECA Left Proximal CCA (cm/sec): 74/16 Left Mid CCA (cm/sec): / Left Distal CCA (cm/sec): 65/12 Left Carotid Bifurcation (cm/sec): / Left External CA (cm/sec): 57/ Left Proximal ICA (cm/sec): 46/11 Left Mid ICA (cm/sec): / Left Distal ICA (cm/sec): 62/18 Left Vertebral Artery: Antegrade flow Left ICA/CCA Ratio: 0.8 Impression: 1. No evidence of hemodynamically significant stenosis in the bilateral carotid and vertebral arteries as described. Consensus Panel Garcia-Scale and Doppler US Criteria for Diagnosis of ICA Stenosis (Leonel, Radiology 12/2002) Normal ICA PSV < 125 cm/sec Plaque Estimate None ICA/CCA PSV Ratio < 2.0 ICA EDV < 40 cm/sec < 50% ICA PSV < 125 cm/sec Plaque Estimate < 50% ICA/CCA PSV Ratio < 2.0 ICA EDV < 40 cm/sec 50- 69% ICA PSV 125-230 cm/sec Plaque Estimate > or = 50% ICA/CCA PSV Ratio 2.0-4.0 ICA EDV 40-100 cm/sec > or = 70%, less than near occlusion ICA PSV > 230 cm/sec Plaque Estimate > or = 50% ICA/CCA Ratio > 4.0 ICA EDV > 100 cm/sec READING PHYSICIAN: Aj Tapia MD -[id number] 12/09/2023 15:14 EDT [facility] National Teleradiology Program [phone] (For Medical Practitioner Use Only) Attention Patients / Veterans: If you have questions or concerns about these test results, please contact your ordering provider or primary care team. Primary Diagnostic Code: NO ALERT REQUIRED Primary Interpreting Staff: RADIOLOGY,OUTSIDE SERVICE, Staff Physician / RADIOLOGY,OUTSIDE SERVICE [place] [facility] [place] [facility] Nov 16, 2023 08:[address] HEAD W/O CONT: INDU JOSÉ [id number] M Exm Date: NOV 16, 2023@08:35 Req Phys: KHUSHI TAPIA Loc: CWM/SO/PACT 3 WH (Req'g Loc) Img Loc: NHM/CT Service: Unknown [facility] [place] [address] (Case [id number] COMPLETE) CT HEAD W/O CONT (CT Detailed) CPT:88738 Reason for Study: 4.0 CM x 5.0 CM Bony Lesion, Zygomatic Process R Side Skull Clinical History: gradually increasing hypertrophic bony lesion R side skull does not hurt patient can't really see it himself says it is geting bigger any indication of bony malignancy? Report Status: Verified Date Reported: NOV 16, 2023 Date Verified: NOV 16, 2023 Cable Braider E-Sig:/ES/JOSE F BULLOCK JR Report: Study: Noncontrast CT scan of the head. Comparison: Head CT from December 16, 2016. Technique: Noncontrast 5 mm contiguous axial images were taken from the skullbase to the vertex. Findings: Interval appearance of moderate to large focus of encephalomalacia within the right frontal lobe consistent with interval infarction, traumatic brain injury, or vasculitis. New small focus of encephalomalacia within the right parietal lobe as well. The ventricles are normal in size, shape and position. The inferior temporal lobes appear normal. There was streak artifact in this region on prior CT of the head. Mild periventricular and deep white matter ischemic gliotic changes of aging are not significantly changed. There is no evidence of mass, hematoma or shift of the midline structures. There are no intra or extra-axial fluid collections. No focal soft tissue or bony abnormality is seen in the right zygomatic arch region or in the right parietal soft tissues or calvarium at the site of cutaneous marker.. There is a small stable 5 mm transverse by 2 mm AP bony exostosis arising from the right calvarial frontal bone above the right frontal sinus that is of questionable clinical significance. The paranasal sinuses and mastoid air cells appear normal. Minimal calcific atherosclerotic change is present to the basilar and internal carotid arteries. Status post right cataract surgery. 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 Primary Diagnostic Code: Significant Abnormality Attention Needed Primary Interpreting Staff: JOSE F BULLOCK JR, Radiologist (Cable Braider) /JOSE F LONGO JR [place] [facility] Encounter Notes: All associated encounter notes This section contains the clinical notes associated to the Encounter. Date/Time Encounter Note(s) Provider Source Dec 20, 2023 09:15 AM ADMINISTRATIVE NOT E: LOCAL TITLE: ADMINISTRATIVE NOTE STANDARD TITLE: ADMINISTRATIVE NOTE DATE OF NOTE: DEC 20, 2023@09:15 ENTRY DATE: DEC 20, 2023@09:15:23 AUTHOR: JS MERINO EXP COSIGNER: URGENCY: STATUS: COMPLETED ADMINISTRATIVE NOTE Has ADDENDA AMSA--Please obtain recent office notes from [facility]. Thanks /shea/ Js Merino RN Registered Nurse (RN) Signed: 12/20/2023 09:16 Receipt Acknowledged By: 12/20/2023 11:04 /shea/ EMERITA NAGEL Advanced Appliance Fixer 12/20/2023 ADDENDUM STATUS: COMPLETED Medical record requested /shea/ EMERITA NAGEL Advanced Appliance Fixer Signed: 12/20/2023 11:05 JS MERINO Dec 09, 2023 03:34 PM TELEPHONE ENCOUNTE R NOTE: LOCAL TITLE: TELEPHONE NOTE/PA STANDARD TITLE: TELEPHONE ENCOUNTER NOTE DATE OF NOTE: DEC 09, 2023@15:34 ENTRY DATE: DEC 09, 2023@15:34:45 AUTHOR: KHUSHI TAPIA EXP COSIGNER: URGENCY: STATUS: COMPLETED called pt not home left message US of Carotids: No Signif Stenosis (a very good thing) /shea/ KHUSHI TAPIA PA-C STAFF PHYSICIAN PENCIL SORTER Signed: 12/09/2023 15:35 KHUSHI TAPIA Nov 10, 2023 10:37 AM PREVENTIVE MEDICIN E NURSING NOTE: LOCAL TITLE: CLINICAL REMINDERS/NURSING STANDARD TITLE: PREVENTIVE MEDICINE NURSING NOTE DATE OF NOTE: NOV 10, 2023@10:37 ENTRY DATE: NOV 10, 2023@10:37:26 AUTHOR: STANLEY MELENDREZ EXP COSIGNER: URGENCY: STATUS: COMPLETED Home Telehealth (CCHT) Referral: Patient declines participation in CCHT Program at this time. Pneumococcal Conjugate Vaccine (PCV15/PCV20): Refuses PCV vaccine Immunization: PNEUMOCOCCAL CONJUGATE, UNSPECIFIED FORMULATION Refusal Reason: PATIENT DECISION Patient refuses all immunization(s) in the PneumoPCV group Date Documented: 11/10/23 10:37 Influenza Immunization: Deferral / Refusal The patient declines to receive the recommended dose of seasonal influenza vaccine. Immunization: INFLUENZA, UNSPECIFIED FORMULATION Refusal Reason: PATIENT DECISION Patient refuses all immunization(s) in the FLU group Date Documented: 11/10/23 10:37 COVID-19 Immunization: Refused Moderna Monovalent COVID-19 vaccine Immunization: COVID-19 (MODERNA), MRNA, LNP-S, PF, 50 MCG/0.5 ML (AGES 12+ YEARS) Refusal Reason: PATIENT DECISION Patient refuses all immunization(s) in the COVID-19 group Date Documented: 11/10/23 10:38 Tdap Immunization: The patient declines to receive the recommended dose of Tdap vaccine. Immunization: TDAP Refusal Reason: PATIENT DECISION Patient refuses all immunization(s) in the TDAP group Date Documented: 11/10/23 10:38 Herpes Zoster (Shingles) Vaccine: The patient declines to receive the recommended dose of zoster (shingles) vaccine. Immunization: ZOSTER RECOMBINANT Refusal Reason: PATIENT DECISION Patient refuses all immunization(s) in the ZOSTER group Date Documented: 11/10/23 10:38 RHS Screen: RHS Screen Environmental Check Screening was not completed at this time due to: Other: Vetern refused to review, I am here to look at my lump on my head Eye Care At-Risk Screen : Patient identified to be at risk for the following eye condition(s): DIABETIC RETINOPATHY: Diabetes Diagnosis Information: Encounter Diagnosis: 08/03/2023@12:30 E11.65 (ICD-10-CM) Type 2 Diabetes Mellitus with Hyperglycemia rank: PRIMARY Prov. Narr. - Diabetes mellitus ([facility] [id number]) MACULAR DEGENERATION: Macular Degeneration Risk Factors Information: Reminder Term: VA-AMD RISK FACTORS Hospitalization Diagnosis 08/08/2020@13:00 I25.10 (ICD-10-CM) Atherosclerotic Heart Disease of [place] Coronary Artery without Angina Pectoris; data node: M ICD6; (Fee) * GLAUCOMA: Glaucoma Risk Factors Information: Encounter Diagnosis: 03/25/2009@13:00 365.01 (ICD-9-CM) Open angle with borderline glaucoma findings rank: PRIMARY Prov. Narr. - Open Angle Glaucoma Suspect Action: Patient has a future eye care appointment scheduled within the next 90 days. Date of Appointment: Goes to [facility] [employer] waiting for them to call me back /shea/ STANLEY MELENDREZ LPN LICENSED PRACTICAL NURSE Signed: 11/10/2023 10:43 STANLEY MELENDREZ [facility] Nov 10, 2023 10:19 AM PHYSICIAN BRITTANY Wright NOTE: LOCAL TITLE: PA NOTE STANDARD TITLE: PHYSICIAN PENCIL SORTER NOTE DATE OF NOTE: NOV 10, 2023@10:19 ENTRY DATE: NOV 10, 2023@10:19:46 AUTHOR: KHUSHI TAPIA COSIGNER: URGENCY: STATUS: COMPLETED S - c/o bump, R side skull x few months does not hurt says it is growing having hair loss at site O - SKULL: 4.0 x 5.0 CM bony hypertrophy zygomatic process, R side skull no discoloration not tender A/P - r/o Bony Malignancy - RADS: CT of Head - fgo from there RTC prn Tobacco Use Screening: The patient has never used tobacco. Medication Reconciliation: Outpatient: Has the patient been taking medications as documented in the EMLR? YES: The patient has been taking medications as documented in the EMLR. Essential Medication List for Review used to complete this medication reconciliation. INCLUDED IN THIS LIST: Alphabetical list of active outpatient prescriptions dispensed from this [facility] (local) and dispensed from another VA or [facility]D facility (remote) as well as inpatient orders (local, pending and active), local clinic medications, locally documented non-VA medications, and local prescriptions that have or been discontinued in the past 90 days. - All changes in medications, including all non-VA/Herbal/OTC medications were entered into CPRS. Changes: nl - If there were any medications the patient should no longer take, they were discontinued. - The patient/caregiver was instructed to update this list, discard old lists, and take this list to the next appointment, whether with a VA or non-VA provider. Alcohol Use Screen (AUDIT-C): Alcohol Screen: SCREEN FOR ALCOHOL (AUDIT-C) An alcohol screening test (AUDIT-C) was negative (score=1). 1. How often did you have a drink containing alcohol in the past year? Consider a drink to be a 12 ounce can or bottle of regular beer, 8 ounces of malt liquor, a 5 ounce glass of table wine, or a 1.5 ounce shot of liquor (like scotch, gin, or vodka). Monthly or less 2. How many drinks containing alcohol did you have on a typical day when you were drinking in the past year? One or two drinks 3. How often did you have six or more drinks on one occasion in the past year? Never Falls & Incontinence Screen: Falls Screen: 4. No falls within the past year. Incontinence Screen No incontinence. Assess Statin Use - Lipids (CVD/DM): The patient has a contraindication to the use of statins. Comment: [facility] Foot Check: A complete foot check was completed at this encounter. VISUAL INSPECTION: Includes inspection for skin breaks, deformity, erythema, trauma, pallor on elevation, dependent rubor, nail deformities, extensive callus and pitting edema. Visual exam results: Normal Comment: nl PEDAL PULSES: Includes palpation of dorsalis and posterior tibial pulses and signs/symptoms of vascular compromise like pain, pallor, parasthesia or paralysis. Present (even if diminished) Comment: nlnl SENSORY CHECK: Includes 10 gram Monofilament ([place]-Donita) test of sensation. Intact (Greater than or equal to 80% of sites checked) Abnormal (Less than 80% of sites checked): Intact LOW-RISK: LOW RISK INFORMATION PROVIDED: 1. Advised patient not to walk barefoot. 2. Explained the importance of daily foot checks for changes. 3. Stressed the importance of daily foot hygiene, including bathing and complete drying. The patient verbalized understanding and was offered a detailed handout on diabetic foot care. /shea/ KHUSHI TAPIA PA-C STAFF PHYSICIAN PENCIL SORTER Signed: 11/10/2023 10:56 KHUSHI TAPIA
--- OUTSIDE RECORDS SUMMARY | 2024-01-04 09:00 | XMS_ITS | Encounter Summary ---
Author Name [facility] [facility] [place] Address [address] [place] [id number] Care Team Providers Care Drywall Hanger Framer Name Role Phone KHUSHI TAPIA Primary Care [...] Name Patient's Relationship to Policy Roa [employer] (R) MEDICARE ADVANTAGE [employer] ([facility]) Feb 07, 2021 [id number] [phone] CYNTHIA JOSÉO PATIENT MEDICARE (WNR) MEDICARE (M) PART B Aug 07, 1998 PART B [id number] CYNTHIA JOSÉO PATIENT MEDICARE (WNR) MEDICARE (M) PART B Aug 07, 1998 PART B [id number] [phone] ARNAV,CYNTHIA DECKERO PATIENT MEDICARE (WNR) MEDICARE (M) PART B Aug 07, 1998 PART B [id number] CYNTHIA JOSÉO PATIENT MEDICARE (WNR) MEDICARE (M) PART B Aug 07, 1998 PART B [id number] 22A ARNAV,CYNTHIA DECKERO PATIENT MEDICARE (WNR) MEDICARE (M) PART B Aug 07, 1997 PART B [id number] [phone] ARNAV,CYNTHIA IDIO PATIENT MEDICARE (WNR) MEDICARE (M) PART A Oct 08, 1996 PART A [id number] [phone] ARNAV,CYNTHIA IDIO PATIENT MEDICARE (WNR) MEDICARE (M) PART A Oct 08, 1996 PART A [id number] ARNAV,CYNTHIA IDIO PATIENT MEDICARE (WNR) MEDICARE (M) PART A Oct 08, 1996 PART A [id number] [phone] ARNAV,CYNTHIA IDIO PATIENT MEDICARE (WNR) MEDICARE (M) PART A Oct 08, 1996 PART A [id number] ARNAV,CYNTHIA IDIO PATIENT MEDICARE (WNR) MEDICARE (M) PART A Oct 08, 1996 PART A [id number] 22A [phone] CYNTHIA JOSÉ PATIENT Selected Encounter This section includes the information on record at [place] for the Encounter. Date/Time Encounter Type Encounter Description Reason Provider Source Jan 04, 2024 01:00 PM OFFICE O/P EST LOW 20 MIN PRIMARY CARE/MEDICINE ICD-10-CM H53.2 Diplopia KHUSHI TAPIA Encounter Template Text not used by [place] Assessments - Encounter Diagnoses This section includes the primary and secondary diagnoses documented for the Encounter. Date/Time Primary/Secondary Diagnosis Diagnosis Name Provider Source Jan 04, 2024 01:16 PM PRIMARY Diplopia KHUSHI TAPIA Jan 04, 2024 01:16 PM SECONDARY Heart failure, unspecified KHUSHI TAPIA Plan of Treatment: Future Appointments (+ 6 months) and Future Tests (+/- 45 days) The Plan of Treatment section includes future care activities for the patient from all [place] treatmentfacilities. This section includes future appointments and future orders which are active, pending or scheduled. Future Appointments This section includes appointments that were scheduled to occur 6 months from the date of the Encounter, up to a maximum of 20 appointments. The data comes from all [place] treatment facilities. Appointment Date/Time Appointment Type Appointme nt Facility Name Mar 08, 2024 11:00 AM [facility] Mar 30, 2024 08:15 [facility] Apr 19, 2024 01:00 PM [facility] Apr 25, 2024 11:00 AM [facility] May 16, 2024 01:00 PM [facility] May 24, 2024 10:00 AM [facility] June 07, 2024 02:30 PM [facility] June 13, 2024 12:45 PM [facility] Vital Signs: All taken on the encounter date This section contains inpatient and outpatient Vital Signs collected on the date of the Encounter. Date/Time Temperature Pulse Blood Pressure Respiratory Rate SP02 Pain Height Weight Body Mass Index Source Jan 04, 2024 12:49 PM 98 72 148/87 19 97 63 138 24 [facility] Social History: Smoking Status (Most current) and Tobacco Use (All prior to encounter date) This section includes the most current, and the historical, smoking and tobacco- related health factors from the [place] facility where the Encounter took place. Current Smoking Status This section includes the most current smoking, or tobacco-related health factor, from the [place] facility where the Encounter took place. Date/Time Current Smoking Status Comment Gabriela grey Nov 10, 2023 10:30 AM VA-TOBACCO NEVER USED [facility] Tobacco Use History This section includes a history of the smoking, or tobacco-related health factors, that were collected on or before the date of the Encounter. The data comes from the [place] facility where the Encounter took place. Date/Time Smoking Status/Tobacco Use Comment F acility Sep 20, 2022 01:00 PM VA-TOBACCO NEVER USED [place] Nov 12, 2020 10:00 AM VA-TOBACCO NEVER USED [place] Oct 18, 2019 01:30 PM VA-TOBACCO NEVER USED [place] Feb 03, 2018 09:51 AM VA-TOBACCO NEVER USED [place] Jul 21, 2017 11:14 AM LIFETIME NON-TOBACCO USER [facility] June 29, 2016 08:58 AM LIFETIME NON-TOBACCO USER [place] Jan 21, 2015 03:25 PM LIFETIME NON-TOBACCO USER [place] Apr 22, 2004 02:00 PM LIFETIME NON-SMOKER [facility] Advance Directives: All historical and current Section Date Range: From patient's date of to the date document was created. This section includes ALL of a patient's completed or amended VA Advance and Rescinded Directives. The entries below indicate that a directive exists for the patient, but an actual copy is not included with this document. The data comes from all [place] facilities. Date Advance Directives Provider Source June [...] the Encounter. The data comes from all [place] treatment facilities. Date/Time Radiology Report Provider Source Dec 09, 2023 08:55 AM DUPLEX SCAN: NON-INVAS. CAROTID IMAGING: ARNAVINDUDEJUAN THOMPSON [id number] -[id number] M Exm Date: DEC 09, 2023@08:55 Req Phys: KHUSHI TAPIA Loc: CWM/SO/PACT 3 WH (Req'g Loc) Img Loc: ULTRASOUND Service: [facility] [place] [address] (Case [id number] COMPLETE) DUPLEX SCAN: NON-INVAS. CAROTID I(US Detailed) CPT:45003 Reason for Study: any carotid or vertebral artery stenosis Clinical History: ct of brain showed some atherisclerotic changes brain Report Status: Verified Date Reported: DEC 09, 2023 Date Verified: DEC 09, 2023 Turbo Generator Oiler E-Sig: Report: DUPLEX SCAN: NON-INVAS. CAROTID IMAGING HISTORY: any carotid or vertebral artery stenosis . COMPARISON: 2016 TECHNIQUE: Duplex imaging of the carotid arteries was performed at the local [facility] facility utilizing grayscale, color Doppler and spectral analysis. images were received by the [place] [facility] ([facility]) for interpretation. FINDINGS: [...] 100 cm/sec READING PHYSICIAN: Aj Tapia MD -[id number] 12/09/2023 15:14 EDT [facility] National Teleradiology Program [phone] (For Medical Practitioner Use Only) Attention Patients / Veterans: If you have questions or concerns about these test results, please contact your ordering provider or primary care team. Primary Diagnostic Code: NO ALERT REQUIRED Primary Interpreting Staff: RADIOLOGY,OUTSIDE SERVICE, Staff Physician / RADIOLOGY,OUTSIDE SERVICE [place] [facility] Encounter Notes: All associated encounter notes This section contains the clinical notes associated to the Encounter. 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 The score was 0 which is a negative screen for depression. Over the past two weeks, how often have you been bothered by the following problems? 1. Little interest or pleasure in doing things Not at all 2. Feeling down, depressed, or hopeless Not at all Medication Reconciliation: Outpatient: Has the patient been taking medications as documented in the EMLR? YES: The patient has been taking medications as documented in the EMLR. Essential Medication List for Review used to complete this medication reconciliation. INCLUDED IN THIS LIST: Alphabetical list of active outpatient prescriptions dispensed from this [place] (local) and dispensed from another [place] or DoD facility (remote) as well as inpatient orders (local, pending and active), local clinic medications, locally documented non-VA medications, and local prescriptions that have or been discontinued in the past 90 days. - All changes in medications, including all non-VA/Herbal/OTC medications were entered into CPRS. Changes: nt - If there were any medications the patient should no longer take, they were discontinued. - The patient/caregiver was instructed to update this list, discard old lists, and take this list to the next appointment, whether with a VA or non-VA provider. /shea/ KHUSHI TAPIA PA-C STAFF PHYSICIAN CHILD CARE AIDE Signed: 01/04/2024 13:17 KHUSHI TAPIA
--- OUTSIDE RECORDS SUMMARY | 2024-02-23 11:50 | XMS_ITS | Encounter Summary ---
Author Name [facility] Organization [facility] Address [address] [place] [id number] Care Team Providers Care Strategic Partnership Manager Name Role Phone KHUSHI TAPIA Primary Care [...] Relationship to Policy Roa [employer] [facility] (WNR) MEDICARE ADVANTAGE [facility] ([facility]) Feb 07, 2021 [id number] [phone] CYNTHIA JOSÉ PATIENT MEDICARE (WNR) MEDICARE (M) PART B Aug 07, 1998 PART B [id number] CYNTHIA JOSÉO PATIENT MEDICARE (WNR) MEDICARE (M) PART B Aug 07, 1998 PART B [id number] CYNTHIA JOSÉO PATIENT MEDICARE (WNR) MEDICARE (M) PART B Aug 07, 1998 PART B [id number] [phone] CYNTHIA JOSÉO PATIENT MEDICARE (WNR) MEDICARE (M) PART B Aug 07, 1998 PART B [id number] [phone] ARNAV,CYNTHIA IDIO PATIENT MEDICARE (WNR) MEDICARE (M) PART B Aug 07, 1997 PART B [id number] ARNAV,CYNTHIA IDIO PATIENT MEDICARE (WNR) MEDICARE (M) PART A Oct 08, 1996 PART A [id number] ARNAV,CYNTHIA IDIO PATIENT MEDICARE (WNR) MEDICARE (M) PART A Oct 08, 1996 PART A [id number] ARNAV,CYNTHIA IDIO PATIENT MEDICARE (WNR) MEDICARE (M) PART A Oct 08, 1996 PART A [id number] [phone] ARNAV,CYNTHIA IDIO PATIENT MEDICARE (WNR) MEDICARE (M) PART A Oct 08, 1996 PART A [id number] ARNAV,CYNTHIA IDIO PATIENT MEDICARE (WNR) MEDICARE (M) PART A Oct 08, 1996 PART A [id number] ARNAV,CYNTHIA DECKERO PATIENT Selected Encounter This section includes the information on record at ME for the Encounter. Date/Time Encounter Type Encounter Description Reason Provider Source Feb 23, 2024 03:50 PM Outpatient Encounter ADMIN PAT ACTIVTIES (MASNONCT) JENNIFER RUSSO Encounter Template Text not used by ME Plan of Treatment: Future Appointments (+ 6 months) and Future Tests (+/- 45 days) The Plan of Treatment section includes future care activities for the patient from all [place] treatmentfacilities. This section includes future appointments and future orders which are active, pending or scheduled. Future Appointments This section includes appointments that were scheduled to occur 6 months from the date of the Encounter, up to a maximum of 20 appointments. The data comes from all [place] treatment facilities. Appointment Date/Time Appointment Type Appointme nt Facility Name Mar 08, 2024 11:00 AM AMBULATORY - MEDICINE [facility] Mar 30, 2024 08:15 AM AMBULATORY - MEDICINE [facility] Apr 19, 2024 01:00 PM AMBULATORY - MEDICINE [facility] Apr 25, 2024 11:00 AM AMBULATORY - SURGERY [facility] May 16, 2024 01:00 PM AMBULATORY - MEDICINE [facility] May 24, 2024 10:00 AM AMBULATORY - [facility] June 07, 2024 02:30 PM AMBULATORY - MEDICINE [facility] June 13, 2024 12:45 PM AMBULATORY - MEDICINE [facility] Lab Results: +/- 30 days of the encounter This section includes the Chemistry and Hematology Lab Results on record with ME for the patient. Radiology Reports and Pathology Reports are provided separately, in subsequent sections. Lab Results This section contains the Chemistry/Hematology Results that were resulted 30 days before or 30 daysafter the date of the Encounter. Date/Time Source Result Type Result - Unit Interpretation Reference Range Specimen Type Comment Mar 09, 2024 12:[address] [facility] CALPROTECTIN, STOOL FECES Specimen Type: FECES Comment: Reference Range: <50 Normal 50-120 Borderline >120 Elevated Calprotectin in Crohn's disease and ulcerative colitis can be five to several thousand times above the reference population (50 mcg/g or less). Levels are usually 50 mcg/g or less in healthy patients and with irritable bowel syndrome. Repeat testing in 4-6 weeks is suggested for borderline values. Test performed by [facility] [place] [id number] [id number] [employer] Operator Helper: Isabela Cordova MD,PHD,CHANDRIKA Test Reported by Julia Allen, [employer] [facility], [address] [place] [address] Aldo Chinchilla M.D., Ph.D., Director of Laboratories , [facility] [id number] Ordering Provider: NAHUN RANDOLPH Report Released Date/Time: Mar 08, 2024 11:37 AM Reporting Lab: [facility] [address] [facility] [address] Performing Lab: [address] [place] CALPROTECTIN, STOOL 14 Mar 09, 2024 12:[address] [facility] GASTROINTESTINAL (GI) PANEL BIOFIRE FECES Spe cimen Type: FECES No comment entered. Ordering Provider: NAHUN RANDOLPH Report Released Date/Time: Mar 08, 2024 11:37 AM Reporting Lab: [facility] [address] [facility] [address] Performing Lab: [facility] [address] [facility] [address] CMPY (JEJUNI,COLI,UPSALIENSIS)-BIOFIRE Not Detec steph -Not Detected PLESIOMONAS SHIGELLOIDES-BIOFIRE Not Detected -Not Detected SALMONELLA-BIOFIRE Not Detected -Not Det ected YERSINIA ENTEROLITICA-BIOFIRE Not Detected -Not Detected VIBRIO (PARAH,VLNIFCUS,CHOLERAE)-BIOFIRE Not Det ected -Not Detected VIBRIO CHOLERAE-BIOFIRE Not Detected -No t Detected ENTEROAGGREGATIVE E.COLI (EAEC)-BIOFIRE Not Dete cted -Not Detected ENTEROPATHOGENIC E.COLI (EPEC)-BIOFIRE Not Detec steph -Not Detected ENTEROTOX E.COLI (ETEC) It/st-BIOFIRE Not Detect ed -Not Detected STEC stx1/stx2-BIOFIRE Not Detected -Not Detected SHIGELLA/ENTEROINV E.COLI (EIEC)-BIOFIRE Not Det ected -Not Detected CRYPTOSPORIDIUM-BIOFIRE Not Detected -No t Detected CYCLOSPORA CAYETANENSIS-BIOFIRE Not Detected -Not Detected ENTAMOEBA HISTOLYTICA-BIOFIRE Not Detected -Not Detected GIARDIA LAMBLIA-BIOFIRE Not Detected -No t Detected ADENOVIRUS F40/41-BIOFIRE Not Detected - Not Detected ASTROVIRUS-BIOFIRE Not Detected -Not Det ected NOROVIRUS GI/GII-BIOFIRE Not Detected -N ot Detected ROTAVIRUS A-BIOFIRE Not Detected -Not De tected SAPOVIRUS (I,II,IV,V)-BIOFIRE Not Detected -Not Detected Mar 09, 2024 12:[address] [facility] FECAL LACTOFERRIN FECES Specimen Type: FECES No comment entered. Ordering Provider: NAHUN RANDOLPH Report Released Date/Time: Mar 08, 2024 11:37 AM Reporting Lab: [facility] [address] [facility] [address] Performing Lab: [facility] [address] [facility] [address] FECAL LACTOFERRIN N Mar 08, 2024 11:[address] [facility] CELIAC DISEASE COMPREHENSIVE PANEL SERUM Spec imen Type: SERUM Comment: INTERPRETATION:No serological evidence of celiac disease. INTERPRETATION:Total serum IgA is elevated. Consider mucosal INTERPRETATION:inflammatory conditions or underlying gammopathy. tTG IGA:REFERENCE RANGE: <15.0 U/mL tTG IGA: Value Interpretation tTG IGA: <15.0 Antibody not detected tTG IGA:> or = 15.0 Antibody detected SERUM IGA:Test Performed by Kuldeep Alleny, SERUM IGA:[employer] [facility], SERUM IGA:[id number] [place], [place] SERUM IGA:Aldo Chinchilla M.D., Ph.D., Director of Laboratories SERUM IGA: , CLIA [id number] Ordering Provider: NAHUN RANDOLPH Report Released Date/Time: Mar 08, 2024 11:37 AM Reporting Lab: [place] [address] [facility] [address] Performing Lab: [address] IGA, SERUM QUEST 349 mg/dL H 70-320 TISSUE TRANSGLUT IgA Ab <1.0 SEE DEO W INTERPRETATION SEE NOTE Mar 08, 2024 11:[address] [facility] CBC BLOO D Specimen Type: BLOOD No comment entered. Ordering Provider: NAHUN RANDOLPH Report Released Date/Time: Mar 08, 2024 11:37 AM Reporting Lab: [place] [address] [facility] [address] Performing Lab: [place] [address] [address] [facility] [address] WBC 7.1 10*3/uL 4.0-11.0 RBC 5.12 10*6/uL 4.4-5.9 HGB 14.4 g/dL 13.4-17.5 HEMATOCRIT 43.8 40-52 MCV 85.6 fL 82-98 MCH 28.2 pg 27.0-33.0 MCHC 32.9 g/dL 32.0-36.0 PLT 404 10*3/uL H 140-400 RDW-CV 15.3 H 11.5-14.5 MPV 8.7 fL 6.6-10.6 Mar 08, 2024 11:[address] [facility] BASIC METABOLIC PANEL PLASMA Specimen Type: PL ASMA No comment entered. Ordering Provider: NAHUN RANDOLPH APRN-ELMER Report Released Date/Time: Mar 08, 2024 11:37 AM Reporting Lab: [facility] [address] [facility] [address] Performing Lab: [facility] [address] [facility] [address] UREA NITROGEN 14 mg/dL 6-22 CALCIUM 8.9 mg/dL 8.5-10.5 CREATININE, SERUM OR PLASMA 0.73 mg/dL 0 .60-1.30 GLUCOSE 92 mg/dL 70-100 SODIUM (SERUM/PLASMA) 139 mmol/L 134-145 POTASSIUM 3.9 mmol/L 3.6-5.2 CHLORIDE 110 mmol/L 100-111 CO2 20 mmol/L L 21-29 EGFRCr >90 Mar 08, 2024 11:[address] [facility] HEPATIC FUNCTION PANEL PLASMA Specimen Type: P LASMA No comment entered. Ordering Provider: NAHUN RANDOLPH APRN-ELMER Report Released Date/Time: Mar 08, 2024 11:37 AM Reporting Lab: [facility] [address] [facility] [address] Performing Lab: [facility] [address] [facility] [address] ALBUMIN 3.8 g/dL 3.4-5.2 ALKALINE PHOSPHATASE 61 U/L 40-150 ALT 14 U/L 0-55 AST 29 U/L 13-40 BILIRUBIN, TOTAL 0.4 mg/dL 0.2-1.2 DIRECT BILIRUBIN 0.1 mg/dL 0.0-0.5 PROTEIN, TOTAL 7.2 g/dL 6.2-8.5 A/G RATIO 1.1 Mar 08, 2024 11:[address] [facility] MAGNESIUM PLAS MA Specimen Type: PLASMA No comment entered. Ordering Provider: NAHUN RANDOLPH Report Released Date/Time: Mar 08, 2024 11:37 AM Reporting Lab: [facility] [address] [facility] [address] Performing Lab: [place] [address] [facility] [address] MAGNESIUM 1.8 mg/dL 1.5-2.6 Mar 08, 2024 11:[address] [facility] TSH PLAS MA Specimen Type: PLASMA No comment entered. Ordering Provider: NAHUN RANDOLPH Report Released Date/Time: Mar 08, 2024 11:37 AM Reporting Lab: [facility] [address] [facility] [address] Performing Lab: [facility] [address] [facility] [address] TSH 3.8760 u[IU]/mL 0.350-4.800 Mar 08, 2024 11:[address] [facility] SED RATE BLOO D Specimen Type: BLOOD No comment entered. Ordering Provider: NAHUN RANDOLPH APRN-ELMER Report Released Date/Time: Mar 08, 2024 11:37 AM Reporting Lab: [facility] [address] [facility] [address] Performing Lab: [facility] [address] [facility] [address] SED RATE 18 mm/h 0-20 Advance Directives: All historical and current Section Date Range: From patient's date of to the date document was created. This section includes ALL of a patient's completed or amended [place] Advance and Rescinded Directives. The entries below indicate that a directive exists for the patient, but an actual copy is not included with this document. The data comes from all [place] facilities. Date Advance Directives Provider Source June 18, 2010 ADVANCE DIRECTIVE AMAYA REYES June 08, 2010 ADVANCE DIRECTIVE AMAYA REYES Pathology Reports: +/- 30 days of the encounter Pathology Reports For cases when an order for pathology services may have been completed prior to the date of the Encounter, the report list includes the Pathology Reports that were completed up to 30 days before dateof the Encounter. For cases when an order for pathology services may have been completed after the date of the Encounter, the report list also includes the Pathology Reports that were completed up to30 days after date of the Encounter. The data comes from all [place] treatment facilities. Date/Time Pathology Report Provider Source Mar 09, 2024 12:00 AM LR MICROBIOLOGY RE PORT: Reporting Lab: [facility] [CLIA# [id number]] [address] [place] [address] Accession [UID]: [id number] [[id number]] Received: Mar 09, 2024@13:43 Collection sample: STOOL Collection date: Mar 09, 2024 00:00 Site/Specimen: FECES Provider: NAHUN RANDOLPH Test(s) ordered: O&P (STOOL)................... completed: Mar 15, 2024 07:30 * PARASITOLOGY FINAL REPORT => Mar 15, 2024 07:30 TECH CODE: [id number] Parasitology Remark(s): NO OVA AND PARASITES SEEN PERFORMED BY:[employer], [id number], [place] =--=--=--=--=--=--=--=--=- -=--=--=--=--=--=--=--=--= --=--=--=--=--=--=--=--=-- Performing Laboratory: Parasitology Report Performed By: [facility] [CLIA# [id number]] [address] [place] [address] [facility] Mar 09, 2024 12:00 AM LR MICROBIOLOGY RE PORT: Reporting Lab: [facility] [CLIA# [id number]] [address] [place] [address] Accession [UID]: [id number] [[id number]] Received: Mar 09, 2024@13:43 Collection sample: STOOL Collection date: Mar 09, 2024 00:00 Site/Specimen: FECES Provider: NAHUN RANDOLPH Test(s) ordered: O&P (STOOL)................... completed: Mar 15, 2024 07:30 * PARASITOLOGY FINAL REPORT => Mar 15, 2024 07:30 TECH CODE: [id number] Parasitology Remark(s): NO OVA AND PARASITES SEEN PERFORMED BY:[employer], [id number], [place] =--=--=--=--=--=--=--=--=- -=--=--=--=--=--=--=--=--= --=--=--=--=--=--=--=--=-- Performing Laboratory: Parasitology Report Performed By: [facility] [CLIA# [id number]] [address] [place] [address] [address] [facility] Encounter Notes: All associated encounter notes This section contains the clinical notes associated to the Encounter. Date/Time Encounter Note(s) Provider Source Feb 23, 2024 03:50 PM NONVA NOTE: LOCAL TITLE: [facility] SELF PRESENTING CARE COORD PLAN STANDARD TITLE: NONVA NOTE DATE OF NOTE: FEB 23, 2024@15:50 ENTRY DATE: FEB 23, 2024@15:50:58 AUTHOR: JENNIFER RUSSO EXP COSIGNER: URGENCY: STATUS: COMPLETED [facility] PRESENTING CARE COORD PLAN NOTE Has ADDENDA Emergency Notification Intake Date Presenting to the Facility: Feb Method of Contact: Notified from [employer] worklist Notification ID: [id number] [facility] Referral #: [facility] Name: Hospital: [facility] Address: [address] City: [place] State: [place] Zip Code: [address] [facility] Facility Point of Contact: Name: MARGUERITE Chief complaint: Problems with stomach and intestines,constipation Primary Diagnosis: Disposition Discharged Date of discharge: Discharge to home Status:Pending Decision [id number] Clinical Review Medical Records Requested. /madhuri RUSSO SPIDER ASSEMBLER Signed: 02/23/2024 15:54 Receipt Acknowledged By: 02/23/2024 15:58 /madhuri ALTAMIRANO RN 02/23/2024 ADDENDUM STATUS: COMPLETED self-presented to [facility]. No local PCP assigned /madhuri ALTAMIRANO RN Signed: 02/23/2024 15:[address] [facility]
--- OUTSIDE RECORDS SUMMARY | 2024-02-24 08:10 | XMS_ITS | Encounter Summary ---
Author Name [facility] (MD) Organization [facility] (MD) Address [address] [place] [id number] Care Team Providers Care Rail Splitter Name Role Phone KHUSHI TAPIA Primary Care [...] Name Patient's Relationship to Policy Roa AETNA [facility] (WNR) MEDICARE ADVANTAGE [facility] ([facility]) Feb 07, 2021 [id number] [phone] CYNTHIA JOSÉ PATIENT MEDICARE (WNR) MEDICARE (M) PART B Aug 07, 1998 PART B [id number] CYNTHIA JOSÉ PATIENT MEDICARE (WNR) MEDICARE (M) PART B Aug 07, 1998 PART B [id number] CYNTHIA JOSÉ PATIENT MEDICARE (WNR) MEDICARE (M) PART B Aug 07, 1998 PART B [id number] CYNTHIA JOSÉO PATIENT MEDICARE (WNR) MEDICARE (M) PART B Aug 07, 1998 PART B [id number] [phone] CYNTHIA JOSÉ IDIO PATIENT MEDICARE (WNR) MEDICARE (M) PART B Aug 07, 1997 PART B [id number] ARNAV,CYNTHIA IDIO PATIENT MEDICARE (WNR) MEDICARE (M) PART A Oct 08, 1996 PART A [id number] ANRAV,CYNTHIA IDIO PATIENT MEDICARE (WNR) MEDICARE (M) PART A Oct 08, 1996 PART A [id number] [phone] ARNAV,CYNTHIA IDIO PATIENT MEDICARE (WNR) MEDICARE (M) PART A Oct 08, 1996 PART A [id number] [phone] ARNAV,CYNTHIA IDIO PATIENT MEDICARE (WNR) MEDICARE (M) PART A Oct 08, 1996 PART A [id number] ARNAV,CYNTHIA IDIO PATIENT MEDICARE (WNR) MEDICARE (M) PART A Oct 08, 1996 PART A [id number] [phone] ARNAV,CYNTHIA DECKERO PATIENT Selected Encounter This section includes the information on record at MD for the Encounter. Date/Time Encounter Type Encounter Description Reason Provider Source Feb 24, 2024 12:10 PM CASE MANAGEMENT ADMIN PAT ACTIVTIES (MASNONCT) EDA GARCIA Encounter Template Text not used by MD Plan of Treatment: Future Appointments (+ 6 months) and Future Tests (+/- 45 days) The Plan of Treatment section includes future care activities for the patient from all MD treatmentfacilities. This section includes future appointments and future orders which are active, pending or scheduled. Future Appointments This section includes appointments that were scheduled to occur 6 months from the date of the Encounter, up to a maximum of 20 appointments. The data comes from all MD treatment facilities. Appointment Date/Time Appointment Type Appointme nt Facility Name Mar 08, 2024 11:00 AM AMBULATORY - MEDICINE [facility] Mar 30, 2024 08:15 AM AMBULATORY - MEDICINE [facility] Apr 19, 2024 01:00 PM AMBULATORY - MEDICINE [facility] Apr 25, 2024 11:00 AM AMBULATORY - SURGERY [facility] May 16, 2024 01:00 PM [facility] May 24, 2024 10:00 AM [facility] June 07, 2024 02:30 PM [facility] June 13, 2024 12:45 PM AMBULATORY - MEDICINE [facility] Lab Results: +/- 30 days of the encounter This section includes the Chemistry and Hematology Lab Results on record with MD for the patient. Radiology Reports and Pathology Reports are provided separately, in subsequent sections. Lab Results This section contains the Chemistry/Hematology Results that were resulted 30 days before or 30 daysafter the date of the Encounter. Date/Time Source Result Type Result - Unit Interpretation Reference Range Specimen Type Comment Mar 09, 2024 12:00 AM [facility] CALPROTECTIN, STOOL FECES Specimen Type: FECES Comment: [...] suggested for borderline values. Test performed by [employer] [place] [id number] [place], [place] [id number] Small Piece Cutter: Isabela Cordova MD,PHD,CHANDRIKA Test Reported by Julia Allen, [employer] [facility], [address] [place] [address] Aldo Chinchilla M.D., Ph.D., Director of Laboratories , [facility] [id number] Ordering Provider: NAHUN RANDOLPH Report Released Date/Time: Mar 08, 2024 11:37 AM Reporting Lab: [facility] [address] [address] Performing Lab: [address] [facility] CALPROTECTIN, STOOL 14 Mar 09, 2024 12:00 AM [facility] GASTROINTESTINAL (GI) PANEL BIOFIRE FECES Spe cimen Type: FECES No comment entered. Ordering Provider: NAHUN RANDOLPH Report Released Date/Time: Mar 08, 2024 11:37 AM Reporting Lab: [facility] [address] [address] Performing Lab: [facility] [address] [address] CMPY (JEJUNI,COLI,UPSALIENSIS)-BIOFIRE Not Detec steph -Not Detected [...] -Not Detected Mar 09, 2024 12:00 AM [facility] FECAL LACTOFERRIN FECES Specimen Type: FECES No comment entered. Ordering Provider: NAHUN RANDOLPH Report Released Date/Time: Mar 08, 2024 11:37 AM Reporting Lab: [facility] [address] [address] Performing Lab: [facility] [address] [address] FECAL LACTOFERRIN N Mar 08, 2024 11:45 AM [facility] CELIAC DISEASE COMPREHENSIVE PANEL SERUM Spec imen Type: SERUM Comment: INTERPRETATION:No serological evidence of celiac disease. INTERPRETATION:Total serum IgA is elevated. Consider mucosal INTERPRETATION:inflammatory conditions or underlying gammopathy. tTG IGA:REFERENCE RANGE: <15.0 U/mL tTG IGA: Value Interpretation tTG IGA: <15.0 Antibody not detected tTG IGA:> or = 15.0 Antibody detected SERUM IGA:Test Performed by Julia Allen, SERUM IGA:[employer] [facility], SERUM IGA:[id number] [place], [place] SERUM IGA:Aldo Chinchilla M.D., Ph.D., Director of Laboratories SERUM IGA: , CLIA [id number] Ordering Provider: NAHUN RANDOLPH Report Released Date/Time: Mar 08, 2024 11:37 AM Reporting Lab: [place] [address] [address] Performing Lab: [address] IGA, SERUM QUEST 349 mg/dL H 70-320 TISSUE TRANSGLUT IgA Ab <1.0 SEE DEO Underwood INTERPRETATION SEE NOTE Mar 08, 2024 11:45 AM [facility] CBC BLOO D Specimen Type: BLOOD No comment entered. Ordering Provider: NAHUN RANDOLPH Report Released Date/Time: Mar 08, 2024 11:37 AM Reporting Lab: [place] [address] [address] Performing Lab: [place] [address] [address] WBC 7.1 10*3/uL 4.0-11.0 RBC 5.12 10*6/uL 4.4-5.9 HGB 14.4 g/dL 13.4-17.5 HEMATOCRIT 43.8 40-52 MCV 85.6 fL 82-98 MCH 28.2 pg 27.0-33.0 MCHC 32.9 g/dL 32.0-36.0 PLT 404 10*3/uL H 140-400 RDW-CV 15.3 H 11.5-14.5 MPV 8.7 fL 6.6-10.6 Mar 08, 2024 11:45 AM [facility] BASIC METABOLIC PANEL PLASMA Specimen Type: PL ASMA No comment entered. Ordering Provider: NAHUN RANDOLPH APRN-BC Report Released Date/Time: Mar 08, 2024 11:37 AM Reporting Lab: [place] [address] [address] [address] Performing Lab: [place] [address] [address] UREA NITROGEN 14 mg/dL 6-22 CALCIUM 8.9 mg/dL 8.5-10.5 CREATININE, SERUM OR PLASMA 0.73 mg/dL 0 .60-1.30 GLUCOSE 92 mg/dL 70-100 SODIUM (SERUM/PLASMA) 139 mmol/L 134-145 POTASSIUM 3.9 mmol/L 3.6-5.2 CHLORIDE 110 mmol/L 100-111 CO2 20 mmol/L L 21-29 EGFRCr >90 Mar 08, 2024 11:45 AM [facility] HEPATIC FUNCTION PANEL PLASMA Specimen Type: P LASMA No comment entered. Ordering Provider: NAHUN RANDOLPH APRN- Report Released Date/Time: Mar 08, 2024 11:37 AM Reporting Lab: [place] [address] [address] [address] Performing Lab: [place] [address] [address] ALBUMIN 3.8 g/dL 3.4-5.2 ALKALINE PHOSPHATASE 61 U/L 40-150 ALT 14 U/L 0-55 AST 29 U/L 13-40 BILIRUBIN, TOTAL 0.4 mg/dL 0.2-1.2 DIRECT BILIRUBIN 0.1 mg/dL 0.0-0.5 PROTEIN, TOTAL 7.2 g/dL 6.2-8.5 A/G RATIO 1.1 Mar 08, 2024 11:45 AM [facility] MAGNESIUM PLAS MA Specimen Type: PLASMA No comment entered. Ordering Provider: NAHUN RANDOLPH APRN-ELMER Report Released Date/Time: Mar 08, 2024 11:37 AM Reporting Lab: [place] [address] [address] Performing Lab: [place] [address] [address] [place] [id number] MAGNESIUM 1.8 mg/dL 1.5-2.6 Mar 08, 2024 11:45 AM [facility] TSH PLAS MA Specimen Type: PLASMA No comment entered. Ordering Provider: NAHUN RANDOLPH APRN-BC Report Released Date/Time: Mar 08, 2024 11:37 AM Reporting Lab: [facility] [address] [address] Performing Lab: [facility] [address] [address] TSH 3.8760 u[IU]/mL 0.350-4.800 Mar 08, 2024 11:45 AM [facility] SED RATE BLOO D Specimen Type: BLOOD No comment entered. Ordering Provider: NAHUN RANDOLPH SURFACE PLATE FINISHER-BC Report Released Date/Time: Mar 08, 2024 11:37 AM Reporting Lab: [facility] [address] [address] Performing Lab: [place] [address] [address] SED RATE 18 mm/h 0-20 Advance Directives: All historical and current Section Date Range: From patient's date of to the date document was created. This section includes ALL of a patient's completed or amended MD Advance and Rescinded Directives. The entries below indicate that a directive exists for the patient, but an actual copy is not included with this document. The data comes from all MD facilities. Date Advance Directives Provider Source June [...] the Encounter. The data comes from all MD treatment facilities. Date/Time Pathology Report Provider Source Mar 09, 2024 12:00 AM LR MICROBIOLOGY RE PORT: Reporting Lab: [facility] [CLIA# [id number]] [address] [place] [address] Accession [UID]: [id number] [[id number]] Received: Mar 09, 2024@13:43 Collection sample: STOOL Collection date: Mar 09, 2024 00:00 Site/Specimen: FECES Provider: NAHUN RANDOLPH Test(s) ordered: O&P (STOOL)................... completed: Mar 15, 2024 07:30 * PARASITOLOGY FINAL REPORT => Mar 15, 2024 07:30 TECH CODE: [id number] Parasitology Remark(s): NO OVA AND PARASITES SEEN PERFORMED BY:[employer] [facility], [address], [place] =--=--=--=--=--=--=--=--=- -=--=--=--=--=--=--=--=--= --=--=--=--=--=--=--=--=-- Performing Laboratory: Parasitology Report Performed By: [facility] [CLIA# [id number]] [address] [place] [address] ANSHUL DURANT [facility] Mar 09, 2024 12:00 AM LR MICROBIOLOGY RE PORT: Reporting Lab: [facility] [CLIA# [id number]] [address] [place] [address] Accession [UID]: [id number] [[id number]] Received: Mar 09, 2024@13:43 Collection sample: STOOL Collection date: Mar 09, 2024 00:00 Site/Specimen: FECES Provider: NAHUN RANDOLPH Test(s) ordered: O&P (STOOL)................... completed: Mar 15, 2024 07:30 * PARASITOLOGY FINAL REPORT => Mar 15, 2024 07:30 TECH CODE: [id number] Parasitology Remark(s): NO OVA AND PARASITES SEEN PERFORMED BY:[facility], [address], [place] =--=--=--=--=--=--=--=--=- -=--=--=--=--=--=--=--=--= --=--=--=--=--=--=--=--=-- Performing Laboratory: Parasitology Report Performed By: [facility] [CLIA# [id number]] [address] [place] [address] KAMILAANSHUL [facility] Encounter Notes: All associated encounter notes This section contains the clinical notes associated to the Encounter. Date/Time Encounter Note(s) Provider Source Feb 24, 2024 12:10 PM CARE MANAGEMENT NO TE: LOCAL TITLE: TRAVELING COORDINATOR STANDARD TITLE: CARE MANAGEMENT NOTE DATE OF NOTE: FEB 24, 2024@12:10 ENTRY DATE: FEB 24, 2024@12:11:01 AUTHOR: EDA GARCIA COSIGNER: URGENCY: STATUS: COMPLETED TRAVELING COORDINATOR Has ADDENDA Diesel Mechanic Apprentice received a voicemail as follows: I'm from [place]. I'm down here in [place]. My number is and I'd like to have a Traveling [place] Consult. I may already have one in [facility], if you can check I'd appreciate it. Diesel Mechanic Apprentice returned phone call. Unable to reach [employer]. Left instructing him to f/u with his [place] PACT to discuss his needs. Also sent message to [employer]'s PACT and [facility]'s requesting they f/u with [employer]. To date, [facility] has not received any Traveling Vet Consults for this patient. /shea/ EDA GARCIA RN Signed: 02/24/2024 12:14 02/28/2024 ADDENDUM STATUS: COMPLETED PER JLV: For Official Use Only Name: INDU JOSÉ : 1945 LOCAL TITLE: CCC: SCHEDULING ADMINISTRATION STANDARD TITLE: ADMINISTRATIVE NOTE DATE OF NOTE: FEB 28, 2024@09:34:13 ENTRY DATE: FEB 28, 2024@09:34:13 AUTHOR: HALLEY HAMPTON COSIGNER: URGENCY: STATUS: COMPLETED CCC: SCHEDULING ADMINISTRATION Has ADDENDA Patient Demographics Patient Name: INDU JOSÉ Patient Primary Phone: [phone] Patient Primary Address: [address] [place] [id number] Patient : 1945 Patient Age: 78 Caller/Recipient Relation to Patient: Self Caller Name: INDU JOSÉ Administrative Administrative Note Reason: Other Administrative Note Comments: Patient requesting a call back from pact rn regarding a travel consult he needs and was told to contact his pact; please contact and assist. 02/28/2024 ADDENDUM STATUS: COMPLETED Spoke with , advised no records received from [facility], consult needs a diagnosis, advised to call the hospital and have them fax the records, as soon as they are received consult can be placed. verbalized an understanding. /es/ Flor Merino RN Registered Nurse (RN) Signed: 02/28/2024 10:58 -------- Will await [facility] Consult if any care is required to be coordinated in [facility]. /shea/ CRISS Edgar, project asst Coordinator Signed: 02/28/2024 17:14 EDA GARCIA [facility]
--- OUTSIDE RECORDS SUMMARY | 2024-03-13 07:54 | XMS_ITS | Encounter Summary ---
Author Name [facility] [place] [facility] [place] Address [address] [place] [id number] Care Team Providers Care Heeler Machine Name Role Phone KHUSHI TAPIA Primary Care [...] Name Patient's Relationship to Policy Roa [employer]ET[employer] [facility] (WNR) MEDICARE ADVANTAGE [facility] ([facility]) Feb 07, 2021 [id number] [phone] CYNTHIA JOSÉ PATIENT MEDICARE (WNR) MEDICARE (M) PART B Aug 07, 1998 PART B [id number] [phone] CYNTHIA JOSÉ PATIENT MEDICARE (WNR) MEDICARE (M) PART B Aug 07, 1998 PART B [id number] CYNTHIA JOSÉ PATIENT MEDICARE (WNR) MEDICARE (M) PART B Aug 07, 1998 PART B [id number] CYNTHIA JOSÉO PATIENT MEDICARE (WNR) MEDICARE (M) PART B Aug 07, 1998 PART B [id number] CYNTHIA JOSÉ IDIO PATIENT MEDICARE (WNR) MEDICARE (M) PART B Aug 07, 1997 PART B [id number] ARNAV,CYNTHIA IDIO PATIENT MEDICARE (WNR) MEDICARE (M) PART A Oct 08, 1996 PART A [id number] [phone] ARNAV,EL IDIO PATIENT MEDICARE (WNR) MEDICARE (M) PART A Oct 08, 1996 PART A [id number] [phone] ARNAV,CYNTHIA IDIO PATIENT MEDICARE (WNR) MEDICARE (M) PART A Oct 08, 1996 PART A [id number] 22A ARNAV,CYNTHIA IDIO PATIENT MEDICARE (WNR) MEDICARE (M) PART A Oct 08, 1996 PART A [id number] [phone] ARNAV,CYNTHIA IDIO PATIENT MEDICARE (WNR) MEDICARE (M) PART A Oct 08, 1996 PART A [id number] 22A ARNAV,CYNTHIA DECKERO PATIENT Selected Encounter This section includes the information on record at [place] for the Encounter. Date/Time Encounter Type Encounter Description Reason Pro vider Source Mar 13, 2024 11:54 AM CASE MANAGEMENT ADMIN PAT KAILATIES ([place]ICHO) EDA PASTOR Encounter Template Text not used by [place] Plan of Treatment: Future Appointments (+ 6 months) and Future Tests (+/- 45 days) The Plan of Treatment section includes future care activities for the patient from all [place] treatmentfacilities. This section includes future appointments and future orders which are active, pending or scheduled. Future Appointments This section includes appointments that were scheduled to occur 6 months from the date of the Encounter, up to a maximum of 20 appointments. The data comes from all [place] treatment facilities. Appointment Date/Time Appointment Type Appointme nt Facility Name Mar 30, 2024 08:15 AM AMBULATORY - MEDICINE [facility] Apr 19, 2024 01:00 PM AMBULATORY - MEDICINE [facility] Apr 25, 2024 11:00 AM AMBULATORY - SURGERY [facility] May 16, 2024 01:00 PM [facility] May 24, 2024 10:00 AM [facility] June 07, 2024 02:30 PM [facility] - MEDICINE [facility] [place] June 13, 2024 12:45 PM [place] [place] [facility] Lab Results: +/- 30 days of the encounter This section includes the Chemistry and Hematology Lab Results on record with [place] for the patient. Radiology Reports and Pathology Reports are provided separately, in subsequent sections. Lab Results This section contains the Chemistry/Hematology Results that were resulted 30 days before or 30 daysafter the date of the Encounter. Date/Time Source Result Type Result - Unit Interpretation Reference Range Specimen Type Comment Mar 09, 2024 12:00 AM [facility] CALPROTECTIN, STOOL FECES Specimen Type: FECES Comment: [...] suggested for borderline values. Test performed by [facility] [place] [id number] Foreman/P[employer] D[employer] Erection: Isabela Cordova MD,PHD,CHANDRIKA Test Reported by Julia Allen, [facility], [address] [place] [address] Aldo Chinchilla M.D., Ph.D., Director of Laboratories , [place] [id number] Ordering Provider: NAHUN RANDOLPH Report Released Date/Time: Mar 08, 2024 11:37 AM Reporting Lab: [facility] [address] [facility] [address] Performing Lab: [address] [facility] CALPROTECTIN, STOOL 14 Mar 09, 2024 12:00 AM [facility] GASTROINTESTINAL (GI) PANEL BIOFIRE FECES Spe cimen Type: FECES No comment entered. Ordering Provider: NAHUN RANDOLPH Report Released Date/Time: Mar 08, 2024 11:37 AM Reporting Lab: [facility] [address] [facility] [facility] [address] Performing Lab: [facility] [address] [facility] [facility] [address] CMPY (JEJUNI,COLI,UPSALIENSIS)-BIOFIRE Not Detec steph -Not Detected [...] Detected Mar 09, 2024 12:00 AM [facility] FECAL LACTOFERRIN FECES Specimen Type: FECES No comment entered. Ordering Provider: NAHUN RANDOLPH Report Released Date/Time: Mar 08, 2024 11:37 AM Reporting Lab: [place] [address] [facility] [address] Performing Lab: [place] [address] [facility] [facility] [address] FECAL LACTOFERRIN N Mar 08, 2024 11:45 AM [facility] CELIAC DISEASE COMPREHENSIVE PANEL SERUM Spec imen Type: SERUM Comment: INTERPRETATION:No serological evidence of celiac disease. INTERPRETATION:Total serum IgA is elevated. Consider mucosal INTERPRETATION:inflammatory conditions or underlying gammopathy. tTG IGA:REFERENCE RANGE: <15.0 U/mL tTG IGA: Value Interpretation tTG IGA: <15.0 Antibody not detected tTG IGA:> or = 15.0 Antibody detected SERUM IGA:Test Performed by Julia Allen, SERUM IGA:[facility], SERUM IGA:[id number] [place], [place] SERUM IGA:Aldo Chinchilla M.D., Ph.D., Director of Laboratories SERUM IGA: , CLIA [id number] Ordering Provider: NAHUN RANDOLPH APRN-ELMER Report Released Date/Time: Mar 08, 2024 11:37 AM Reporting Lab: [place] [address] [facility] [address] Performing Lab: [address] IGA, SERUM QUEST 349 mg/dL H 70-320 TISSUE TRANSGLUT IgA Ab <1.0 SEE DEO Underwood INTERPRETATION SEE NOTE Mar 08, 2024 11:45 AM [facility] CBC BLOO D Specimen Type: BLOOD No comment entered. Ordering Provider: NAHUN RANDOLPH Report Released Date/Time: Mar 08, 2024 11:37 AM Reporting Lab: [place] [address] [facility] [address] Performing Lab: [place] [address] [facility] [facility] [address] WBC 7.1 10*3/uL 4.0-11.0 RBC 5.12 10*6/uL 4.4-5.9 HGB 14.4 g/dL 13.4-17.5 HEMATOCRIT 43.8 40-52 MCV 85.6 fL 82-98 MCH 28.2 pg 27.0-33.0 MCHC 32.9 g/dL 32.0-36.0 PLT 404 10*3/uL H 140-400 RDW-CV 15.3 H 11.5-14.5 MPV 8.7 fL 6.6-10.6 Mar 08, 2024 11:45 AM [facility] BASIC METABOLIC PANEL PLASMA Specimen Type: PL ASMA No comment entered. Ordering Provider: NAHUN RANDOLPH APRN-ELMER Report Released Date/Time: Mar 08, 2024 11:37 AM Reporting Lab: [place] [address] [place] [address] Performing Lab: [place] [address] [place] [address] UREA NITROGEN 14 mg/dL 6-22 CALCIUM 8.9 mg/dL 8.5-10.5 CREATININE, SERUM OR PLASMA 0.73 mg/dL 0 .60-1.30 GLUCOSE 92 mg/dL 70-100 SODIUM (SERUM/PLASMA) 139 mmol/L 134-145 POTASSIUM 3.9 mmol/L 3.6-5.2 CHLORIDE 110 mmol/L 100-111 CO2 20 mmol/L L 21-29 EGFRCr >90 Mar 08, 2024 11:45 AM [facility] HEPATIC FUNCTION PANEL PLASMA Specimen Type: P LASMA No comment entered. Ordering Provider: NAHUN RANDOLPH APRN-BC Report Released Date/Time: Mar 08, 2024 11:37 AM Reporting Lab: [place] [address] [place] [address] Performing Lab: [place] [address] [place] [address] ALBUMIN 3.8 g/dL 3.4-5.2 ALKALINE PHOSPHATASE 61 U/L 40-150 ALT 14 U/L 0-55 AST 29 U/L 13-40 BILIRUBIN, TOTAL 0.4 mg/dL 0.2-1.2 DIRECT BILIRUBIN 0.1 mg/dL 0.0-0.5 PROTEIN, TOTAL 7.2 g/dL 6.2-8.5 A/G RATIO 1.1 Mar 08, 2024 11:45 AM [facility] MAGNESIUM PLAS MA Specimen Type: PLASMA No comment entered. Ordering Provider: NAHUN RANDOLPH APRN-BC Report Released Date/Time: Mar 08, 2024 11:37 AM Reporting Lab: [place] [address] [place] [address] Performing Lab: [place] [address] [place] [address] MAGNESIUM 1.8 mg/dL 1.5-2.6 Mar 08, 2024 11:45 AM [facility] TSH PLAS MA Specimen Type: PLASMA No comment entered. Ordering Provider: NAHUN RANDOLPH APRN-BC Report Released Date/Time: Mar 08, 2024 11:37 AM Reporting Lab: [facility] [address] [facility] [address] Performing Lab: [facility] [address] [address] TSH 3.8760 u[IU]/mL 0.350-4.800 Mar 08, 2024 11:45 AM [facility] SED RATE BLOO D Specimen Type: BLOOD No comment entered. Ordering Provider: NAHUN RANDOLPH APRN-BC Report Released Date/Time: Mar 08, 2024 11:37 AM Reporting Lab: [facility] [address] [facility] [address] Performing Lab: [facility] [address] [facility] [address] SED RATE 18 mm/h 0-20 Advance Directives: [...] this document. The data comes from all [place] facilities. Date Advance Directives Provider Source June [...] the Encounter. The data comes from all [place] treatment facilities. Date/Time Pathology Report Provider Source Mar 09, 2024 12:00 AM LR MICROBIOLOGY RE PORT: Reporting Lab: [facility] [CLIA# [id number]] [address] [place] [address] Accession [UID]: [id number] [[id number]] Received: Mar 09, 2024@13:43 Collection sample: STOOL Collection date: Mar 09, 2024 00:00 Site/Specimen: FECES Provider: NAHUN RANDOLPH Test(s) ordered: O&P (STOOL)................... completed: Mar 15, 2024 07:30 * PARASITOLOGY FINAL REPORT => Mar 15, 2024 07:30 TECH CODE: [id number] Parasitology Remark(s): NO OVA AND PARASITES SEEN PERFORMED BY:DISHA Hannon, [id number], [place] =--=--=--=--=--=--=--=--=- -=--=--=--=--=--=--=--=--= --=--=--=--=--=--=--=--=-- Performing Laboratory: Parasitology Report Performed By: [facility] [CLIA# [id number]] [address] [place] [address] ANSHUL DURANT [facility] Mar 09, 2024 12:00 AM LR MICROBIOLOGY RE PORT: Reporting Lab: [facility] [CLIA# [id number]] [address] [place] [address] Accession [UID]: [id number] [[id number]] Received: Mar 09, 2024@13:43 Collection sample: STOOL Collection date: Mar 09, 2024 00:00 Site/Specimen: FECES Provider: NAHUN RANDOLPH Test(s) ordered: O&P (STOOL)................... completed: Mar 15, 2024 07:30 * PARASITOLOGY FINAL REPORT => Mar 15, 2024 07:30 TECH CODE: [id number] Parasitology Remark(s): NO OVA AND PARASITES SEEN PERFORMED BY:DISHA Hannon, [id number], [place] =--=--=--=--=--=--=--=--=- -=--=--=--=--=--=--=--=--= --=--=--=--=--=--=--=--=-- Performing Laboratory: Parasitology Report Performed By: [facility] [CLIA# [id number]] [address] [place] [address] ANSHUL JARAMILLO [facility] Encounter Notes: All associated encounter notes This section contains the clinical notes associated to the Encounter. Date/Time Encounter Note(s) Provider Source Mar 13, 2024 11:54 AM CARE MANAGEMENT NO TE: LOCAL TITLE: TRAVELING COORDINATOR STANDARD TITLE: CARE MANAGEMENT NOTE DATE OF NOTE: MAR 13, 2024@11:54 ENTRY DATE: MAR 13, 2024@11:54:37 AUTHOR: EDA PASTOR EXP COSIGNER: URGENCY: STATUS: COMPLETED Interfac[facility] TV[facility] care coordination completed as requested by [facility]. Verified 03/08/24 GI appt attendance and results of care coordination given to ordering provider on existing TVC consult via completed specialty consult completion note. See TVC consult (FWD TO GI) for full information* Note placed for non-count clinic encounter purposes. /shea/ CRISS Edgar, marbleizer Coordinator Signed: 03/13/2024 11:55 EDA PASTOR [facility]
--- OUTSIDE RECORDS SUMMARY | 2024-03-30 04:15 | XMS_ITS | Encounter Summary ---
Author Name [facility] ([facility] Organization [facility] Address [address] [place] [address] Care Team Providers Care [employer] Driver Name Role Phone KHUSHI TAPIA Primary Care [...] Name Patient's Relationship to Policy Roa [employer] [facility] (WNR) MEDICARE ADVANTAGE [facility] ([facility]) Feb 07, 2021 [id number] [phone] CYNTHIA JOSÉ PATIENT MEDICARE (WNR) MEDICARE (M) PART B Aug 07, 1998 PART B [id number] 22A CYNTHIA JOSÉ PATIENT MEDICARE (WNR) MEDICARE (M) PART B Aug 07, 1998 PART B [id number] [phone] CYNTHIA JOSÉ PATIENT MEDICARE (WNR) MEDICARE (M) PART B Aug 07, 1998 PART B [id number] CYNTHIA JOSÉ PATIENT MEDICARE (WNR) MEDICARE (M) PART B Aug 07, 1998 PART B [id number] 22A CYNTHIA JOSÉ IDIO PATIENT MEDICARE (WNR) MEDICARE (M) PART B Aug 07, 1997 PART B [id number] 22A ARNAV,CYNTHIA IDIO PATIENT MEDICARE (WNR) MEDICARE (M) PART A Oct 08, 1996 PART A [id number] 22A ARNAV,EL IDIO PATIENT MEDICARE (WNR) MEDICARE (M) PART A Oct 08, 1996 PART A [id number] ARNAV,CYNTHIA IDIO PATIENT MEDICARE (WNR) MEDICARE (M) PART A Oct 08, 1996 PART A [id number] 22A ARNAV,CYNTHIA IDIO PATIENT MEDICARE (WNR) MEDICARE (M) PART A Oct 08, 1996 PART A [id number] ARNAV,CYNTHIA IDIO PATIENT MEDICARE (WNR) MEDICARE (M) PART A Oct 08, 1996 PART A [id number] 22A ARNAV,CYNTHIA DECKERO PATIENT Selected Encounter This section includes the information on record at DC for the Encounter. Date/Time Encounter Type Encounter Description Reason Provider Source Mar 30, 2024 08:15 AM DIAGNOSTIC COLONOSCOPY GI ENDOSCOPY ICD-10-CM Z12.11 Encounter for screening for malignant neoplasm of colon SIDNEY PHILIP MD [facility] Encounter Template Text not used by DC Assessments - Encounter Diagnoses This section includes the primary and secondary diagnoses documented for the Encounter. Date/Time Primary/Secondary Diagnosis Diagnosis Name Provider Source Mar 30, 2024 03:28 PM PRIMARY Encounter for screening for malignant neoplasm of colon SIDNEY PHILIP MD [facility] Plan of Treatment: Future Appointments (+ 6 months) and Future Tests (+/- 45 days) The Plan of Treatment section includes future care activities for the patient from all DC treatmentfacilities. This section includes future appointments and future orders which are active, pending or scheduled. Future Appointments This section includes appointments that were scheduled to occur 6 months from the date of the Encounter, up to a maximum of 20 appointments. The data comes from all DC treatment facilities. Appointment Date/Time Appointment Type Appointme nt Facility Name Apr 19, 2024 01:00 PM AMBULATORY - MEDICINE [facility] Apr 25, 2024 11:00 AM AMBULATORY - SURGERY [facility] May 16, 2024 01:00 PM [facility] MEDICINE [facility] May 24, 2024 10:00 AM [facility] June 07, 2024 02:30 PM [facility] - MEDICINE [facility] June 13, 2024 12:45 PM [facility]UL[facility] MEDICINE [facility] Lab Results: +/- 30 days of the encounter This section includes the Chemistry and Hematology Lab Results on record with DC for the patient. Radiology Reports and Pathology Reports are provided separately, in subsequent sections. Lab Results This section contains the Chemistry/Hematology Results that were resulted 30 days before or 30 daysafter the date of the Encounter. Date/Time Source Result Type Result - Unit Interpretation Reference Range Specimen Type Comment Apr 25, 2024 11:25 AM [facility] BASIC METABOLIC PANEL PLASMA Specimen Type: PLASMA Comment: 1+ Hemolysis may falsely cause increased Potassium result 1+ Hemolysis may falsely cause elevated Chloride result 1+ Hemolysis may falsely cause decreased Creatinine result Ordering Provider: SKYLER OVALLES Report Released Date/Time: Apr 25, 2024 11:15 AM Reporting Lab: [place] [address] [facility] [address] Performing Lab: [place] [address] [facility] [address] UREA NITROGEN 10 mg/dL 6-22 CALCIUM 9.3 mg/dL 8.5-10.5 CREATININE, SERUM OR PLASMA 0.77 mg/dL 0 .60-1.30 GLUCOSE 96 mg/dL 70-100 SODIUM (SERUM/PLASMA) 139 mmol/L 134-145 POTASSIUM 4.8 mmol/L 3.6-5.2 CHLORIDE 106 mmol/L 100-111 CO2 24 mmol/L 21-29 EGFRCr >90 Apr 25, 2024 11:25 AM [facility] PSA, FREE & TOT SERUM Specimen Type: SERUM No comment entered. Ordering Provider: SKYLER OVALLES Report Released Date/Time: Apr 25, 2024 11:15 AM Reporting Lab: [facility] [address] [facility] [address] Performing Lab: [place] [address] [address] [facility] [address] PSA-TOT 9.59 ng/mL H 0.000-4.000 FREE PSA 2.029 ng/mL 0.100-30.000 PSA-PERCENT FREE 21.17 Apr 25, 2024 11:20 AM [facility] URINALYSIS URINE Specimen Type: URINE No comment entered. Ordering Provider: SKYLER OVALLES Report Released Date/Time: Apr 25, 2024 11:15 AM Reporting Lab: [facility] [address] [facility] [address] Performing Lab: [place] [address] [address] [facility] [address] URINE COLOR Yellow -YELLOW-STRAW SPECIFIC GRAVITY 1.008 1.005-1.035 UROBILINOGEN NEG mg/dL NEG URINE BILIRUBIN NEG mg/dL NEG URINE KETONES NEG mg/dL NEG URINE GLUCOSE (UA) NEG mg/dL NEG URINE PROTEIN (UA) NEG mg/dL NEG URINE PH 6.0 5.0-9.0 APPEARANCE CLEAR CLEAR URINE BLOOD NEG NEG URINE NITRITE NEG NEG LEUKOCYTE EST (UA) NEG NEG Mar 09, 2024 12:00 AM [facility] CALPROTECTIN, STOOL FECES Specimen Type: FECE S Comment: Reference Range: <50 Normal 50-120 Borderline >120 Elevated Calprotectin in Crohn's disease and ulcerative colitis can be five to several thousand times above the reference population (50 mcg/g or less). Levels are usually 50 mcg/g or less in healthy patients and with irritable bowel syndrome. Repeat testing in 4-6 weeks is suggested for borderline values. Test performed by [facility] [address] [place] [id number] [employer] Metal Sprayer: Isabela Cordova MD,PHD,CHANDRIKA Test Reported by Citlaly Allen, [employer], [address] [place] [address] Aldo Chinchilla M.D., Ph.D., Director of Laboratories , [place] [id number] Ordering Provider: NAHUN RANDOLPH TUBE BENDING MACHINE OPERATOR-BC Report Released Date/Time: Mar 08, 2024 11:37 AM Reporting Lab: [facility] [address] [facility] [address] Performing Lab: [address] CITLALY MANCUSO CALPROTECTIN, STOOL 14 Mar 09, 2024 12:00 AM [facility] GASTROINTESTINAL (GI) PANEL BIOFIRE FECES Spe cimen Type: FECES No comment entered. Ordering Provider: NAHUN RANDOLPH Report Released Date/Time: Mar 08, 2024 11:37 AM Reporting Lab: [facility] [address] [facility] [address] Performing Lab: [facility] [address] [facility] [address] CMPY (JEJUNI,COLI,UPSALIENSIS)-BIOFIRE Not Detec steph -Not Detected [...] -Not Detected Mar 09, 2024 12:00 AM [facility] FECAL LACTOFERRIN FECES Specimen Type: FECES No comment entered. Ordering Provider: NAHUN RANDOLPH Report Released Date/Time: Mar 08, 2024 11:37 AM Reporting Lab: [facility] [address] [facility] [address] Performing Lab: [facility] [address] [facility] [address] FECAL LACTOFERRIN N Mar 08, 2024 11:45 AM [facility] CELIAC DISEASE COMPREHENSIVE PANEL SERUM Spec imen Type: SERUM Comment: INTERPRETATION:No serological evidence of celiac disease. INTERPRETATION:Total serum IgA is elevated. Consider mucosal INTERPRETATION:inflammatory conditions or underlying gammopathy. tTG IGA:REFERENCE RANGE: <15.0 U/mL tTG IGA: Value Interpretation tTG IGA: <15.0 Antibody not detected tTG IGA:> or = 15.0 Antibody detected SERUM IGA:Test Performed by Citlaly Allen, SERUM IGA:stiQRd [facility], SERUM IGA:[id number] [place], [place] SERUM IGA:Aldo Chinchilla M.D., Ph.D., Director of Laboratories SERUM IGA: , CLIA [id number] Ordering Provider: NAHUN RANDOLPH APRN- Report Released Date/Time: Mar 08, 2024 11:37 AM Reporting Lab: [facility] [address] [facility] [address] Performing Lab: [facility] [id number] [place] [address] DR BOUCHER DC IGA, SERUM QUEST 349 mg/dL H 70-320 TISSUE TRANSGLUT IgA Ab <1.0 SEE BELO W INTERPRETATION SEE NOTE Mar 08, 2024 11:45 AM [facility] CBC BLOO D Specimen Type: BLOOD No comment entered. Ordering Provider: NAHUN RANDOLPH APRN- Report Released Date/Time: Mar 08, 2024 11:37 AM Reporting Lab: [facility] [address] [facility] [address] Performing Lab: [facility] [address] [facility] [address] WBC 7.1 10*3/uL 4.0-11.0 RBC 5.12 10*6/uL 4.4-5.9 HGB 14.4 g/dL 13.4-17.5 HEMATOCRIT 43.8 40-52 MCV 85.6 fL 82-98 MCH 28.2 pg 27.0-33.0 MCHC 32.9 g/dL 32.0-36.0 PLT 404 10*3/uL H 140-400 RDW-CV 15.3 H 11.5-14.5 MPV 8.7 fL 6.6-10.6 Mar 08, 2024 11:45 AM [facility] BASIC METABOLIC PANEL PLASMA Specimen Type: PL ASMA No comment entered. Ordering Provider: NAHUN RANDOLPH APRN-ELMER Report Released Date/Time: Mar 08, 2024 11:37 AM Reporting Lab: [place] [address] [facility] [address] Performing Lab: [place] [address] [place] [address] UREA NITROGEN 14 mg/dL 6-22 CALCIUM 8.9 mg/dL 8.5-10.5 CREATININE, SERUM OR PLASMA 0.73 mg/dL 0 .60-1.30 GLUCOSE 92 mg/dL 70-100 SODIUM (SERUM/PLASMA) 139 mmol/L 134-145 POTASSIUM 3.9 mmol/L 3.6-5.2 CHLORIDE 110 mmol/L 100-111 CO2 20 mmol/L L 21-29 EGFRCr >90 Mar 08, 2024 11:45 AM [facility] HEPATIC FUNCTION PANEL PLASMA Specimen Type: P LASMA No comment entered. Ordering Provider: NAHUN RANDOLPH APRN-ELMER Report Released Date/Time: Mar 08, 2024 11:37 AM Reporting Lab: [place] [address] [address] Performing Lab: [place] [address] [address] [place] [address] ALBUMIN 3.8 g/dL 3.4-5.2 ALKALINE PHOSPHATASE 61 U/L 40-150 ALT 14 U/L 0-55 AST 29 U/L 13-40 BILIRUBIN, TOTAL 0.4 mg/dL 0.2-1.2 DIRECT BILIRUBIN 0.1 mg/dL 0.0-0.5 PROTEIN, TOTAL 7.2 g/dL 6.2-8.5 A/G RATIO 1.1 Mar 08, 2024 11:45 AM [facility] MAGNESIUM PLAS MA Specimen Type: PLASMA No comment entered. Ordering Provider: NAHUN RANDOLPH APRN-ELMER Report Released Date/Time: Mar 08, 2024 11:37 AM Reporting Lab: [facility] [address] [facility] [address] Performing Lab: [facility] [address] [facility] [address] MAGNESIUM 1.8 mg/dL 1.5-2.6 Mar 08, 2024 11:45 AM [facility] TSH PLAS MA Specimen Type: PLASMA No comment entered. Ordering Provider: NAHUN RANDOLPH Report Released Date/Time: Mar 08, 2024 11:37 AM Reporting Lab: [facility] [address] [facility] [address] Performing Lab: [facility] [address] [facility] [address] TSH 3.8760 u[IU]/mL 0.350-4.800 Mar 08, 2024 11:45 AM [facility] SED RATE BLOO D Specimen Type: BLOOD No comment entered. Ordering Provider: NAHUN RANDOLPH Report Released Date/Time: Mar 08, 2024 11:37 AM Reporting Lab: [facility] [address] [facility] [address] Performing Lab: [facility] [address] [facility] [address] SED RATE 18 mm/h 0-20 Vital Signs: All taken on the encounter date This section contains inpatient and outpatient Vital Signs collected on the date of the Encounter. Date/Time Temperature Pulse Blood Pressure Respiratory Rate SP02 Pain Height Weight Body Mass Index Source Mar 30, 2024 02:40 PM 64 140/82 20 98 0 [facility] Mar 30, 2024 02:25 PM 61 103/68 17 94 0 [facility] Mar 30, 2024 02:10 PM 97.9 70 103/65 17 94 0 [facility] Mar 30, 2024 02:01 PM 65 126/77 16 96 [facility] Mar 30, 2024 01:30 PM 57 147/72 14 97 [facility] Advance Directives: All historical and current Section Date Range: From patient's date of to the date document was created. This section includes ALL of a patient's completed or amended DC Advance and Rescinded Directives. The entries below indicate that a directive exists for the patient, but an actual copy is not included with this document. The data comes from all DC facilities. Date Advance Directives Provider Source June [...] the Encounter. The data comes from all DC treatment facilities. Date/Time Pathology Report Provider Source Apr 25, 2024 11:20 AM LR MICROBIOLOGY RE PORT: Reporting Lab: [facility] [CLIA# [id number]] [address] [place] [address] Accession [UID]: [id number] [[id number]] Received: Apr 25, 2024@12:00 Collection sample: URINE (CLEAN CATCH) Collection date: Apr 25, 2024 11:20 Site/Specimen: URINE Provider: SKYLER OVALLES Test(s) ordered: URINE C&S (CLEAN CATCH)....... completed: Apr 26, 2024 08:32 * BACTERIOLOGY FINAL REPORT => Apr 26, 2024 08:32 [facility] CODE: [id number] Bacteriology Remark(s): NO GROWTH =--=--=--=--=--=--=--=--=- -=--=--=--=--=--=--=--=--= --=--=--=--=--=--=--=--=-- Performing Laboratory: Bacteriology Report Performed By: [facility] [CLIA# [id number]] [address] [place] [address] ANSHUL JARAMILLO [facility] Mar 09, 2024 12:00 AM LR MICROBIOLOGY RE PORT: Reporting Lab: [facility] [CLIA# [id number]] [address] [place] [address] Accession [UID]: [id number] [[id number]] Received: Mar 09, 2024@13:43 Collection sample: STOOL Collection date: Mar 09, 2024 00:00 Site/Specimen: FECES Provider: NAHUN RANDOLPH Test(s) ordered: O&P (STOOL)................... completed: Mar 15, 2024 07:30 * PARASITOLOGY FINAL REPORT => Mar 15, 2024 07:30 TECH CODE: [id number] Parasitology Remark(s): NO OVA AND PARASITES SEEN PERFORMED BY:[address], [place], [place] =--=--=--=--=--=--=--=--=- -=--=--=--=--=--=--=--=--= --=--=--=--=--=--=--=--=-- Performing Laboratory: Parasitology Report Performed By: [facility] [CLIA# [id number]] [address] [place] [address] ANSHUL DURANT [facility] Mar 09, 2024 12:00 AM LR MICROBIOLOGY RE PORT: Reporting Lab: [facility] [CLIA# [id number]] [address] [place] [address] Accession [UID]: [id number] [[id number]] Received: Mar 09, 2024@13:43 Collection sample: STOOL Collection date: Mar 09, 2024 00:00 Site/Specimen: FECES Provider: NAHUN RANDOLPH Test(s) ordered: O&P (STOOL)................... completed: Mar 15, 2024 07:30 * PARASITOLOGY FINAL REPORT => Mar 15, 2024 07:30 TECH CODE: [id number] Parasitology Remark(s): NO OVA AND PARASITES SEEN PERFORMED BY:[address], [place] =--=--=--=--=--=--=--=--=- -=--=--=--=--=--=--=--=--= --=--=--=--=--=--=--=--=-- Performing Laboratory: Parasitology Report Performed By: [facility] [CLIA# [id number]] [address] [place] [address] ANSHUL JARAMILLO [facility] Encounter Notes: All associated encounter notes This section contains the clinical notes associated to the Encounter. Date/Time Encounter Note(s) Provider Source Mar 30, 2024 03:17 PM NURSING DISCHARGE NOTE: LOCAL TITLE: NURSING - GI RECOVERY/DISCHARGE STANDARD TITLE: NURSING DISCHARGE NOTE DATE OF NOTE: MAR 30, 2024@15:17 ENTRY DATE: MAR 30, 2024@15:17:10 AUTHOR: ELISABETH PHILLIPS EXP COSIGNER: URGENCY: STATUS: COMPLETED TIME OF DISCHARGE: ____1500 Mode of Discharge: Wheelchair Discharge to: Home Accompanied by: Relative. TIME PATIENT RECEIVED: __1410____ Patient received from procedure room, hands off report from anesthesia provider and nurse of intra-procedure VS, patient tolerance and procedure outcome. COMMENTS: . Patient has __Colonoscopy procedure by doctor _Sidney . Patient is awake, respirations even and unlabored, skin warm and dry to touch. PHASE 2 DISCHARGE CRITERIA PAIN POINTS Minimal or none Pain score 0-4 or at tolerable level or at baseline 2 Moderate, requiring oral medication Pain score. 5-7 or 3 above base line 1 Severe, requiring intravenous opioid treatment Pain score 8-10 0 Score:2 NAUSEA/VOMITING POINTS Minimal or none 2 Moderate (requiring medication) 1 Severe 0 Score:2 CIRCULATORY STAUS POINTS BP/HR less than 20% IR 20 mmHg of baseline 2 BP/HR 20-40% or 20-40 mmHg, no orthostasis 1 BP/HR greater than 40% or 40 mmHg, or orthostasis 0 Score: 2 ACTIVITY and MENTAL STATUS POINTS Oriented x 3 AND has steady gait (at baseline for non-ambulating patients) 2 Oriented x 3 OR has steady gait (returning to baseline for non-ambulating patients) 1 Neither Oriented x3 or steady gait 0 Score: 2 SURGICAL SITE/DRESSING POINTS Dry and Clean or Not Applicable (e.g. Endoscopy) 2 Wet but stationary and marked/minimal bleeding 1 Growing area of wetness/active bleeding 0 Score: 2 Score of 9 is fit for discharge. A patient with a score < 9 can be discharge from Phase 2 after a documented review form a qualified LIP Time: ___1440 Total Score:10 NOTE: A score of 0 in any category or any deterioration in patient condition excludes eligibility for discharge unless approved by a qualified surgeon/Proceduralist. PATIENT EDUCATION The patient was educated on the following topics / goals: Post GI procedure Goal: The patient was given written post procedure instructions that include the following information. 1. The procedure performed and the findings from the procedure. 2. The patient is not to drive, operate machinery, sign legal documents, or make crucial decisions until the day after the procedure. 3. The patient is to rest at home the day after the procedure. 4. The first food taken should be liquids, if no nausea, vomiting or severe abdominal pain occurs, then the diet may be advanced. 5. No re colored foods should be eaten for 24 hours. 6. No aspirin or anti-inflammatory drugs should be taken for 14 days. Use acetaminophen for pain. 7. If the patient experiences any rectal bleeding, magnetic observer abdominal pain, vomiting blood, persistent nausea or vomiting black tarry stool or any other problem within 24 hours of the procedure, they will notify the Endoscopy [facility] of the [facility]. The phone numbers were provided to the patient. TYPE OF EDUCCATION: Individual METHOD OF EVALUATION: Return verbalization, Patient acknowledged. PATIENT PREFERRENCE FOR LEARNING: Document 1:1 Discussion Patient participated in [id number] period: Yes. Significant other attended class and Participated: No Patient perceived barriers to learning: No Barriers/Needs Identified Ready to Learn (receptive) Food/drug interaction instruction: No Follow-up/Nest class: No Handout/audiovisuals: Written instructions provided. Patient receptivity: Good Compression: Good Action Plan/How barriers and special needs were addressed: Reinforce and instruct as needs arise. COMMENT: Patient able to dress self, heplock removed catheter intact, tolerate juice well. Patient denies any pain or discomfort, no nausea or abdominal discomfort. ID band removed. Patient left will all belongings with no complaints. Discharge instruction given and reviewed with patient. Discharge paper will mail to patient address. /shea/ ELISABETH PHILLIPS RN Signed: 03/30/2024 15:18 ELISABETH PHILLIPS [facility] Mar 30, 2024 03:05 PM GASTROENTEROLOGY P ROCEDURE CONSULT: LOCAL TITLE: GI COLONOSCOPY CP CONSULT STANDARD TITLE: GASTROENTEROLOGY PROCEDURE CONSULT DATE OF NOTE: MAR 30, 2024@15:05:14 ENTRY DATE: MAR 30, 2024@15:05:14 AUTHOR: CLINICAL,DEVICE PRO EXP COSIGNER: URGENCY: STATUS: COMPLETED GI COLONOSCOPY CP CONSULT Has ADDENDA DOCUMENT IN [facility] SEE FULL REPORT IN [facility] SIGNATURE NOT REQUIRED SEE SIGNATURE IN [facility] (ENDOSOFT COLONOSCOPY) AUTO-INSTRUMENT DIAGNOSIS Procedure: COL Colonoscopy Release Status: Released Off-Line Verified Date Verified: Mar 30, 2024@08:[address] Patient Name INDU JOSÉ Date of 1945 Record Number [id number] Date/Time of Procedure 03/30/2024 / 08:15 AM Referring Physician Endoscopist Sidney Philip , PROCEDURE PERFORMED Colonoscopy - Colonoscopy, flexible; INDICATIONS FOR EXAMINATION Personal hx of colon polyps Instruments: [id number] [id number] Medications: As per Anesthesia Visualization: Good Tolerance: Good Complications: None Extent of Exam: cecum Limitations: None Procedure Technique:Pre-Op anesthesia history & physical reviewed and agreed. Informed consent was obtained from the patient after explaining all the risks (perforation, bleeding, infection and adverse effects to the medicine) , benefits and alternatives to the procedure which the patient appeared to understand and so stated. The patient was connected to the monitoring devices and placed in the left lateral position. Continuous oxygen was provided with a nasal cannula and IV medicine administered thru an indwelling cannula. After adequate conscious sedation was achieved, a digital exam was performed and the colonoscope introduced in to the rectum and advanced under direct visualization to the cecum . The cecum was identified by visual landmarks. The scope was subsequently removed slowly while carefully examining the color, texture, anatomy, and integrity of the mucosa on the way out. In the rectum, the scope was retroflexed to evaluate for internal hemorrhoids and anorectal pathology. The patient was subsequently transferred to the recovery area in satisfactory condition. FINDINGS -Complete colonoscopy up to the cecum. -BBPS 9 (3, 3, 3) -No mass or lesions were found in the colonoscopy -Internal hemorrhoids. ENDOSCOPIC DIAGNOSIS -Normal colonoscopy -Internal hemorrhoids. RECOMMENDATIONS -Follow up in clinic. -Repeat colonoscopy in 5 years due to family hx of colon cancer or earlier if clinically indicated. Signature: Sidney Philip, This electronic signature authenticates all electronic and/or handwritten documentation, including orders, generated by the signer during the episode of care contained in this record.03/30/2024 03:04 PM by Sidney Philip Administrative Closure: 03/30/2024 by: DEVICE PROXY SERVICE CLINICAL Clinical,Device Proxy Service 03/30/2024 ADDENDUM STATUS: COMPLETED Dr Rut Fragoso PGY5 performed the procedure. I was in the room for the entire procedure. Colorectal Cancer Screening Colonoscopy reminder set 5 years from MAR 30, 2024. /shea/ SIDNEY PHILIP MD HEALTH INFORMATICS INSTRUCTOR Signed: 03/30/2024 15:29 CLINICAL,DEVICE PROXY SERVICE [facility] Mar 30, 2024 02:01 PM NURSING NOTE: LOCAL TITLE: NURSING - GI PROCEDURE STANDARD TITLE: NURSING NOTE DATE OF NOTE: MAR 30, 2024@14:01 ENTRY DATE: MAR 30, 2024@14:01:16 AUTHOR: MARI STALEY COSIGNER: URGENCY: STATUS: COMPLETED DATE OF PROCEDURE: 03/30/2024 PROVIDER PERFORMING PROCEDURE: SIDNEY PHILIP MD PROPOSED PROCEDURES: Colonoscopy GI SCOPES: 26. [id number]#26 / Serial Number [id number] IV Line: Catheter Gauge: 20g IV Solution: 500 NS IV Site: Right Hand IV site patient?: Yes Arrived with IV?: Yes [place] Precautions were Maintained. Photos: Yes Flouroscopy: No TIME OUT (BEFORE PROCEDURE) Time out before Procedure: 1:39 PM Accurate procedure consent completed. Correct patient verified by two (2) identifiers (patient stated (if able to) full name and full social security number or date of ). Confirmed correct site and side, marking not required as it is an endoscopic or other procedure performed through the mouth or anus. Correct patient position verified. Relevant images and results are properly labeled and appropriately displayed. Need to administer antibiotics and or fluids for irrigation purposes reviewed and not required. Safety precautions are addressed based on this patient's history or medications use. Post Procedure: Times/Vitals Start Time: 1:42 PM End Time: 2:00 PM OUTCOMES Anxiety Tolerated the procedure well with minimal anxiety. Pain Tolerated the procedure well with minimal pain. Injury Risk Administration of reversal agents - No. Infection Signs of infection noted - No. Air Exchange Maintained adequate airway and oxygenation. Initiation of bag/mask - No. Intubation for loss of protective reflexes - No. Aspiration occurred - No. ADMINISTERED DRUGS: MAC - Yes BLOOD PRODUCTS GIVEN WITHIN 2 HOURS OR INTRA PROCEDURE: None MENTAL STATUS: Drowsy (arousable to verbal stimuli AIRWAY: Patent Airway. SKIN: Warm Dry TRANSFERRED TO: GI Recovery ABDOMEN: Soft Non-tender /shea/ MARI STALEY GI RN Signed: 03/30/2024 14:01 MARI STALEY [facility] Mar 30, 2024 12:34 PM GASTROENTEROLOGY N URSING PROCEDURE NOTE: LOCAL TITLE: NURSING - GI PRE-PROCEDURE STANDARD TITLE: GASTROENTEROLOGY NURSING PROCEDURE NOTE DATE OF NOTE: MAR 30, 2024@12:34 ENTRY DATE: MAR 30, 2024@12:34:46 AUTHOR: FLOYD YOUNG COSIGNER: URGENCY: STATUS: COMPLETED Time to Procedure Room: 12:00pm Patent is: Outpatient Person providing information for this form: Patient Mode of Arrival: Ambulatory Arrived from: Home Accompanied by: Family Name: Luisa Contact Location: Proposed Procedure: Colonoscopy. Pre-procedure instructions given? Yes Pre-procedure instructions verbalized and understood? Yes Does patient have advanced directive? No Health care surrogate? No Consent signed? No Armband checked? Yes Patient identified? Yes Prep: golytely/mag citrate/bisacodyl Effective: Yes NPO after midnight? Yes Dentures removed? N/A Glasses removed? Removed Hearing aid removed? N/A NURSING ASSESSMENT: RESPIRATORY: Regular CARDIOVASCULAR: Deferred : Voids SKIN: Skin Moisture - Dry Skin Temperature - Warm NEUROLOGY: Behavior: Cooperative Mental Status: Oriented x3 PAST HISTORY POSITIVE FOR: see problem list GI: ABD.-soft Does patient have someone to help Him/Her at home? Yes Patient does not have special care needs related to spiritual or cultural beliefs. Discharge goal: Home Drug Allergies: No Known Allergies NCP NURSING CARE PLAN NURSING FOCUS: POTENTIAL FOR ANXIETY/FEAR NURSING ACTION: Explain steps of procedure including feelings and sensations to expect. Explain purpose of procedure. Encourage patient and family to ask questions and verbalize EXPECTED OUTCOMES: Verbalizes understanding of the proposed procedure. Demonstrates decreased anxiety. NURSING FOCUS: POTENTIAL FOR PAIN NURSING ACTIONS: Assess for pain, location, duration and what makes it worse and educate the patient. Assess pain intensity and physiology (acute-chronic). Administer pain relief medications if indicated and assess effectiveness. EXPECTED OUTCOMES: The patient will have little or no pain discomfort or a degree of pain relief acceptable to the patient and family. The patient will achieve maximal functional independence. NURSING FOCUS: POTENTIAL FOR INJURY NURSING ACTIONS: Assess pertinent lab studies. Assess allergies. Monitor for changes in vital signs. Monitor for complications related to procedure. EXPECTED OUTCOMES: The patient will remain free from injury. The patient's vital signs will remain stable. The patient will not have any adverse reaction to medications. NURSING FOCUS: POTENTIAL FOR INFECTION NURSING ACTIONS: Apply proper standard precautions. Use aseptic techniques throughout the procedure. Ensure proper sterilization of equipment per hospital policy. EXPECTED OUTCOMES: The patient will not develop signs of infection after the procedure. NURSING FOCUS: POTENTIAL FOR IMPAIRED AIR EXCHANGE NURSING ACTIONS: Monitor VS, cardiac rhythm, O2 saturation, and assesses for dyspnea. Administer oxygen as indicated. Maintain suction readily available. Assess level of sedation and LOC. EXPECTED OUTCOMES: Maintain adequate airway and The patient will not develop clinical symptoms of aspiration during or after the procedure. /shea/ ENEIDA YOUNG registered nurse Signed: 03/30/2024 12:34 FLOYD YOUNG [facility]
--- OUTSIDE RECORDS SUMMARY | 2024-03-30 04:15 | XMS_ITS | Encounter Summary ---
Author Name [facility] [place] [facility] [place] Address [address] [place] [address] Care Team Providers Care Agricultural Research Technician Name Role Phone KHUSHI TAPIA Primary Care [...] Name Patient's Relationship to Policy Roa AETNA [facility] (WNR) MEDICARE ADVANTAGE [facility] ([facility]) Feb 07, 2021 [id number] [phone] CYNTHIA JOSÉ PATIENT MEDICARE (WNR) MEDICARE (M) PART B Aug 07, 1998 PART B [id number] CYNTHIA JOSÉO PATIENT MEDICARE (WNR) MEDICARE (M) PART B Aug 07, 1998 PART B [id number] ARNAV,CYNTHIA DECKERO PATIENT MEDICARE (WNR) MEDICARE (M) PART B Aug 07, 1998 PART B [id number] CYNTHIA JOSÉO PATIENT MEDICARE (WNR) MEDICARE (M) PART B Aug 07, 1998 PART B [id number] ARNAV,CYNTHIA IDIO PATIENT MEDICARE (WNR) MEDICARE (M) PART B Aug 07, 1997 PART B [id number] [phone] ARNAV,CYNTHIA IDIO PATIENT MEDICARE (WNR) MEDICARE (M) PART A Oct 08, 1996 PART A [id number] 22A ARNAV,EL IDIO PATIENT MEDICARE (WNR) MEDICARE (M) PART A Oct 08, 1996 PART A [id number] ARNAV,EL IDIO PATIENT MEDICARE (WNR) MEDICARE (M) PART A Oct 08, 1996 PART A [id number] [phone] ARNAV,CYNTHIA IDIO PATIENT MEDICARE (WNR) MEDICARE (M) PART A Oct 08, 1996 PART A [id number] ARNAV,CYNTHIA IDIO PATIENT MEDICARE (WNR) MEDICARE (M) PART A Oct 08, 1996 PART A [id number] 22A [phone] ARNAV,CYNTHIA DECKERO PATIENT Selected Encounter This section includes the information on record at [place] for the Encounter. Date/Time Encounter Type Encounter Description Reason Provider Source Mar 30, 2024 08:15 AM POSTOP FOLLOW-UP VISIT NON-OR ANESTHESIA PROCEDURES ICD-10-CM Z12.11 Encounter for screening for malignant neoplasm of colon CORTEZ MCCULLOUGH CRNA [facility] Encounter Template Text not used by [place] Assessments - Encounter Diagnoses This section includes the primary and secondary diagnoses documented for the Encounter. Date/Time Primary/Secondary Diagnosis Diagnosis Name Provider Source Mar 30, 2024 02:23 PM PRIMARY Encounter for screening for malignant neoplasm of colon KIANNA MCCULLOUGH CRNA [facility] Plan of Treatment: Future Appointments (+ 6 months) and Future Tests (+/- 45 days) The Plan of Treatment section includes future care activities for the patient from all [place] treatmentfacilities. This section includes future appointments and future orders which are active, pending or scheduled. Future Appointments This section includes appointments that were scheduled to occur 6 months from the date of the Encounter, up to a maximum of 20 appointments. The data comes from all [place] treatment facilities. Appointment Date/Time Appointment Type Appointme nt Facility Name Apr 19, 2024 01:00 PM AMBULATORY - MEDICINE [facility] Apr 25, 2024 11:00 AM AMBULATORY - SURGERY [facility] May 16, 2024 01:00 PM [facility]BULATORY - MEDICINE [facility] May 24, 2024 10:00 AM [facility] June 07, 2024 02:30 PM [facility] - MEDICINE [facility] June 13, 2024 12:45 PM AMBULATORY - MEDICINE [facility] Lab Results: +/- 30 days of the encounter This section includes the Chemistry and Hematology Lab Results on record with [place] for the patient. Radiology Reports and Pathology Reports are provided separately, in subsequent sections. Lab Results This section contains the Chemistry/Hematology Results that were resulted 30 days before or 30 daysafter the date of the Encounter. Date/Time Source Result Type Result - Unit Interpretation Reference Range Specimen Type Comment Apr 25, 2024 11:25 AM [facility] BASIC METABOLIC PANEL PLASMA Specimen Type: PLASMA Comment: 1+ Hemolysis may falsely cause increased Potassium result 1+ Hemolysis may falsely cause elevated Chloride result 1+ Hemolysis may falsely cause decreased Creatinine result Ordering Provider: SKYLER OVALLES Report Released Date/Time: Apr 25, 2024 11:15 AM Reporting Lab: [place] [address] [address] [facility] [address] Performing Lab: [place] [address] [address] [facility] [address] UREA NITROGEN 10 mg/dL 6-22 CALCIUM 9.3 mg/dL 8.5-10.5 CREATININE, SERUM OR PLASMA 0.77 mg/dL 0 .60-1.30 GLUCOSE 96 mg/dL 70-100 SODIUM (SERUM/PLASMA) 139 mmol/L 134-145 POTASSIUM 4.8 mmol/L 3.6-5.2 CHLORIDE 106 mmol/L 100-111 CO2 24 mmol/L 21-29 EGFRCr >90 Apr 25, 2024 11:25 AM [facility] PSA, FREE & TOT SERUM Specimen Type: SERUM No comment entered. Ordering Provider: SKYLER OVALLES Report Released Date/Time: Apr 25, 2024 11:15 AM Reporting Lab: [facility] [address] [facility] [address] Performing Lab: [facility] [address] [facility] [address] PSA-TOT 9.59 ng/mL H 0.000-4.000 FREE PSA 2.029 ng/mL 0.100-30.000 PSA-PERCENT FREE 21.17 Apr 25, 2024 11:20 AM [facility] URINALYSIS URINE Specimen Type: URINE No comment entered. Ordering Provider: SKYLER OVALLES Report Released Date/Time: Apr 25, 2024 11:15 AM Reporting Lab: [facility] [address] [facility] [address] Performing Lab: [place] [address] [address] [facility] [address] URINE COLOR Yellow -YELLOW-STRAW SPECIFIC GRAVITY 1.008 1.005-1.035 UROBILINOGEN NEG mg/dL NEG URINE BILIRUBIN NEG mg/dL NEG URINE KETONES NEG mg/dL NEG URINE GLUCOSE (UA) NEG mg/dL NEG URINE PROTEIN (UA) NEG mg/dL NEG URINE PH 6.0 5.0-9.0 APPEARANCE CLEAR CLEAR URINE BLOOD NEG NEG URINE NITRITE NEG NEG LEUKOCYTE EST (UA) NEG NEG Mar 09, 2024 12:00 AM [facility] CALPROTECTIN, STOOL FECES Specimen Type: FECE [...] suggested for borderline values. Test performed by [facility] [address] [place] [address] Conveyor Belt Repairer: Isabela Cordova MD,PHD,[place] Test Reported by [facility], [employer] [place], [address] [place], [place] Aldo Chinchilla M.D., Ph.D., Director of Laboratories , [place] [id number] Ordering Provider: NAHUN RANDOLPH LLAMA FARMER-BC Report Released Date/Time: Mar 08, 2024 11:37 AM Reporting Lab: [facility] [address] [facility] [address] Performing Lab: [facility] [address] [address] CALPROTECTIN, STOOL 14 Mar 09, 2024 12:00 AM [facility] GASTROINTESTINAL (GI) PANEL BIOFIRE FECES Spe cimen Type: FECES No comment entered. Ordering Provider: [facility]PH [facility] Report Released Date/Time: Mar 08, 2024 11:37 AM Reporting Lab: [facility] [address] [facility] [address] Performing Lab: [facility] [address] [facility] [address] CMPY (JEJUNI,COLI,UPSALIENSIS)-BIOFIRE Not Detec steph -Not Detected [...] -Not Detected Mar 09, 2024 12:00 AM [facility] FECAL LACTOFERRIN FECES Specimen Type: FECES No comment entered. Ordering Provider: NAHUN RANDOLPH APRN-BC Report Released Date/Time: Mar 08, 2024 11:37 AM Reporting Lab: [facility] [address] [facility] [address] Performing Lab: [facility] [address] [facility] [address] FECAL LACTOFERRIN N Mar 08, 2024 11:45 AM [facility] CELIAC DISEASE COMPREHENSIVE PANEL SERUM Spec imen Type: SERUM Comment: INTERPRETATION:No serological evidence of celiac disease. INTERPRETATION:Total serum IgA is elevated. Consider mucosal INTERPRETATION:inflammatory conditions or underlying gammopathy. tTG IGA:REFERENCE RANGE: <15.0 U/mL tTG IGA: Value Interpretation tTG IGA: <15.0 Antibody not detected tTG IGA:> or = 15.0 Antibody detected SERUM IGA:Test Performed by [facility], SERUM IGA:[email or web address] [facility], SERUM IGA:[address] [place], [place] SERUM IGA:Aldo Chinchilla M.D., Ph.D., Director of Laboratories SERUM IGA: , CLIA [id number] Ordering Provider: NAHUN RANDOLPH APRN-BC Report Released Date/Time: Mar 08, 2024 11:37 AM Reporting Lab: [facility] [address] [facility] [address] Performing Lab: [address] CITLALY MANCUSO IGA, SERUM QUEST 349 mg/dL H 70-320 TISSUE TRANSGLUT IgA Ab <1.0 SEE DEO Underwood INTERPRETATION SEE NOTE Mar 08, 2024 11:45 AM [facility] CBC BLOO D Specimen Type: BLOOD No comment entered. Ordering Provider: NAHUN RANDOLPH APRN-BC Report Released Date/Time: Mar 08, 2024 11:37 AM Reporting Lab: [facility] [address] [facility] [address] Performing Lab: [facility] [address] [facility] [address] WBC 7.1 10*3/uL 4.0-11.0 RBC 5.12 10*6/uL 4.4-5.9 HGB 14.4 g/dL 13.4-17.5 HEMATOCRIT 43.8 40-52 MCV 85.6 fL 82-98 MCH 28.2 pg 27.0-33.0 MCHC 32.9 g/dL 32.0-36.0 PLT 404 10*3/uL H 140-400 RDW-CV 15.3 H 11.5-14.5 MPV 8.7 fL 6.6-10.6 Mar 08, 2024 11:45 AM [facility] BASIC METABOLIC PANEL PLASMA Specimen Type: PL ASMA No comment entered. Ordering Provider: NAHUN RANDOLPH APRN- Report Released Date/Time: Mar 08, 2024 11:37 AM Reporting Lab: [place] [address] [address] Performing Lab: [place] [address] UREA NITROGEN 14 mg/dL 6-22 CALCIUM 8.9 mg/dL 8.5-10.5 CREATININE, SERUM OR PLASMA 0.73 mg/dL 0 .60-1.30 GLUCOSE 92 mg/dL 70-100 SODIUM (SERUM/PLASMA) 139 mmol/L 134-145 POTASSIUM 3.9 mmol/L 3.6-5.2 CHLORIDE 110 mmol/L 100-111 CO2 20 mmol/L L 21-29 EGFRCr >90 Mar 08, 2024 11:45 AM [facility] HEPATIC FUNCTION PANEL PLASMA Specimen Type: P LASMA No comment entered. Ordering Provider: NAHUN RANDOLPH APRN- Report Released Date/Time: Mar 08, 2024 11:37 AM Reporting Lab: [place] [address] [address] [place] [address] Performing Lab: [place] [address] [address] [place] [address] ALBUMIN 3.8 g/dL 3.4-5.2 ALKALINE PHOSPHATASE 61 U/L 40-150 ALT 14 U/L 0-55 AST 29 U/L 13-40 BILIRUBIN, TOTAL 0.4 mg/dL 0.2-1.2 DIRECT BILIRUBIN 0.1 mg/dL 0.0-0.5 PROTEIN, TOTAL 7.2 g/dL 6.2-8.5 A/G RATIO 1.1 Mar 08, 2024 11:45 AM [facility] MAGNESIUM PLAS MA Specimen Type: PLASMA No comment entered. Ordering Provider: NAHUN RANDOLPH APRN-BC Report Released Date/Time: Mar 08, 2024 11:37 AM Reporting Lab: [facility] [address] [facility] [address] Performing Lab: [facility] [address] [facility] [address] MAGNESIUM 1.8 mg/dL 1.5-2.6 Mar 08, 2024 11:45 AM [facility] TSH PLAS MA Specimen Type: PLASMA No comment entered. Ordering Provider: NAHUN RANDOLPH APRN-ELMER Report Released Date/Time: Mar 08, 2024 11:37 AM Reporting Lab: [facility] [address] [facility] [address] Performing Lab: [facility] [address] [facility] [address] TSH 3.8760 u[IU]/mL 0.350-4.800 Mar 08, 2024 11:45 AM [facility] SED RATE BLOO D Specimen Type: BLOOD No comment entered. Ordering Provider: NAHUN RANDOLPH APRN-ELMER Report Released Date/Time: Mar 08, 2024 11:37 AM Reporting Lab: [facility] [address] [facility] [address] Performing Lab: [facility] [address] [facility] [address] SED RATE 18 mm/h 0-20 Vital Signs: All taken on the encounter date This section contains inpatient and outpatient Vital Signs collected on the date of the Encounter. Date/Time Temperature Pulse Blood Pressure Respiratory Rate SP02 Pain Height Weight Body Mass Index Source Mar 30, 2024 02:40 PM 64 140/82 20 98 0 [facility] Mar 30, 2024 02:25 PM 61 103/68 17 94 0 [facility] Mar 30, 2024 02:10 PM 97.9 70 103/65 17 94 0 [facility] Mar 30, 2024 02:01 PM 65 126/77 16 96 [facility] Mar 30, 2024 01:30 PM 57 147/72 14 97 [facility] Advance Directives: All historical and current Section Date Range: From patient's date of to the date document was created. This section includes ALL of a patient's completed or amended [place] Advance and Rescinded Directives. The entries below indicate that a directive exists for the patient, but an actual copy is not included with this document. The data comes from all [place] facilities. Date Advance Directives Provider Source June [...] the Encounter. The data comes from all [place] treatment facilities. Date/Time Pathology Report Provider Source Apr 25, 2024 11:20 AM LR MICROBIOLOGY RE PORT: Reporting Lab: [facility] [CLIA# [id number]] [address] [place] [address] Accession [UID]: [id number] [[id number]] Received: Apr 25, 2024@12:00 Collection sample: URINE (CLEAN CATCH) Collection date: Apr 25, 2024 11:20 Site/Specimen: URINE Provider: SKYLER OVALLES Test(s) ordered: URINE C&S (CLEAN CATCH)....... completed: Apr 26, 2024 08:32 * BACTERIOLOGY FINAL REPORT => Apr 26, 2024 08:32 TECH CODE: [id number] Bacteriology Remark(s): NO GROWTH =--=--=--=--=--=--=--=--=- -=--=--=--=--=--=--=--=--= --=--=--=--=--=--=--=--=-- Performing Laboratory: Bacteriology Report Performed By: [facility] [CLIA# [id number]] [address] [place] [address] ANSHUL JARAMILLO [facility] Mar 09, 2024 12:00 AM LR MICROBIOLOGY RE PORT: Reporting Lab: [facility] [CLIA# [id number]] [address] [place] [address] Accession [UID]: [id number] [[id number]] Received: Mar 09, 2024@13:43 Collection sample: STOOL Collection date: Mar 09, 2024 00:00 Site/Specimen: FECES Provider: NAHUN RANDOLPH Test(s) ordered: O&P (STOOL)................... completed: Mar 15, 2024 07:30 * PARASITOLOGY FINAL REPORT => Mar 15, 2024 07:30 TECH CODE: [id number] Parasitology Remark(s): NO OVA AND PARASITES SEEN PERFORMED BY:[employer], [address] [place] =--=--=--=--=--=--=--=--=- -=--=--=--=--=--=--=--=--= --=--=--=--=--=--=--=--=-- Performing Laboratory: Parasitology Report Performed By: [facility] [CLIA# [id number]] [address] [place] [address] ANSHUL DURANT [facility] Mar 09, 2024 12:00 AM LR MICROBIOLOGY RE PORT: Reporting Lab: [facility] [CLIA# [id number]] [address] [place] [address] Accession [UID]: [id number] [[id number]] Received: Mar 09, 2024@13:43 Collection sample: STOOL Collection date: Mar 09, 2024 00:00 Site/Specimen: FECES Provider: NAHUN RANDOLPH Test(s) ordered: O&P (STOOL)................... completed: Mar 15, 2024 07:30 * PARASITOLOGY FINAL REPORT => Mar 15, 2024 07:30 TECH CODE: [id number] Parasitology Remark(s): NO OVA AND PARASITES SEEN PERFORMED BY:[employer], [address], [place] =--=--=--=--=--=--=--=--=- -=--=--=--=--=--=--=--=--= --=--=--=--=--=--=--=--=-- Performing Laboratory: Parasitology Report Performed By: [facility] [CLIA# [id number]] [address] [place] [address] ANSHUL JARAMILLO [facility] Encounter Notes: All associated encounter notes This section contains the clinical notes associated to the Encounter. Date/Time Encounter Note(s) Provider Source Mar 30, 2024 02:04 PM ANESTHESIOLOGY POS T OPERATIVE E & M NOTE: LOCAL TITLE: ANESTHESIA POST OP STANDARD TITLE: ANESTHESIOLOGY POST OPERATIVE E & M NOTE DATE OF NOTE: MAR 30, 2024@14:04 ENTRY DATE: MAR 30, 2024@14:04:54 AUTHOR: DENIZ MCCULLOUGH COSIGNER: URGENCY: STATUS: COMPLETED This 78 year old MALE is on post-op day #0. VITAL SIGNS: DATE/TIME TEMP PULSE RESP BP PAIN MAR 30, 2024@12:56:12 97.8 60 12 131/65 0 MAR 30, 2024@13:30:18 57 14 147/72 MAR 30, 2024@14:01:32 65 16 126/77 ANESTHESIA ASSESSMENT: The patient has experienced no post operative anesthesia complications. /shea/ DENIZ MCCULLOUGH NEWSPAPER WRITER NEWSPAPER WRITER Signed: 03/30/2024 14:23 DENIZ MCCULLOUGH NEWSPAPER WRITER [facility]
--- OUTSIDE RECORDS SUMMARY | 2024-04-19 09:00 | XMS_ITS | Encounter Summary ---
Author Name [facility] Organization [facility] [place] Address [address] [place] [id number] Care Team Providers Care Hogshead Inspector Name Role Phone KHUSHI TAPIA Primary Care [...] Name Patient's Relationship to Policy Roa AETNA [facility] (WNR) MEDICARE ADVANTAGE [facility] ([facility]) Feb 07, 2021 [id number] [phone] CYNTHIA JOSÉ PATIENT MEDICARE (WNR) MEDICARE (M) PART B Aug 07, 1998 PART B [id number] CYNTHIA JOSÉO PATIENT MEDICARE (WNR) MEDICARE (M) PART B Aug 07, 1998 PART B [id number] ARNAV,CYNTHIA DECKERO PATIENT MEDICARE (WNR) MEDICARE (M) PART B Aug 07, 1998 PART B [id number] CYNTHIA JOSÉO PATIENT MEDICARE (WNR) MEDICARE (M) PART B Aug 07, 1998 PART B [id number] [phone] ARNAV,CYNTHIA IDIO PATIENT MEDICARE (WNR) MEDICARE (M) PART B Aug 07, 1997 PART B [id number] ARNAV,CYNTHIA IDIO PATIENT MEDICARE (WNR) MEDICARE (M) PART A Oct 08, 1996 PART A [id number] ARNAV,EL IDIO PATIENT MEDICARE (WNR) MEDICARE (M) PART A Oct 08, 1996 PART A [id number] ARNAV,EL IDIO PATIENT MEDICARE (WNR) MEDICARE (M) PART A Oct 08, 1996 PART A [id number] [phone] ARNAV,CYNTHIA IDIO PATIENT MEDICARE (WNR) MEDICARE (M) PART A Oct 08, 1996 PART A [id number] [phone] ARNAV,CYNTHIA IDIO PATIENT MEDICARE (WNR) MEDICARE (M) PART A Oct 08, 1996 PART A [id number] ARNAV,CYNTHIA DECKERO PATIENT Selected Encounter This section includes the information on record at [place] for the Encounter. Date/Time Encounter Type Encounter Description Reason Pro vider Source Apr 19, 2024 01:00 PM OFFICE O/P EST LOW 20 MIN GASTROENTEROLOGY ICD-10-CM R19.4 Change in bowel habit LOLA FRANKLIN Encounter Template Text not used by [place] Assessments - Encounter Diagnoses This section includes the primary and secondary diagnoses documented for the Encounter. Date/Time Primary/Secondary Diagnosis Diagnosis Name Provider Source Apr 19, 2024 03:43 PM PRIMARY Change in bowel habit LULU BAR [facility] Plan of Treatment: Future Appointments (+ [...] Appointment Type Appointme nt Facility Name Apr 25, 2024 11:00 AM AMBULATORY - SURGERY [facility] May 16, 2024 01:00 PM [facility] May 24, 2024 10:00 AM AM[facility]ULATORY [facility] MEDIC[facility] [place] [facility] June 07, 2024 02:30 PM [facility] - MEDICINE [facility] June 13, 2024 12:45 PM AMBULATORY - MEDICINE [facility] [place] [facility] Active, Pending, and Scheduled Orders This section includes a listing of several types of active, pending, and scheduled orders, including clinic medications orders, diagnostic test orders, procedure orders and consult orders; where the start date of the order is 45 days before the date of the Encounter or 45 days after the date of theEncounter. The data comes from all [place] treatment facilities. Test Date/Time Test Type Test Details Facility Name May 16, 2024 01:18 PM Consult Order [facility]-CARDIOLOGY Cons Rooter Operator's Choice [facility] Lab Results: +/- 30 days of the [...] Unit Interpretation Reference Range Specimen Type Comment May 11, 2024 07:47 AM [facility] TSH SERUM Specimen Type: SERUM No comment entered. Ordering Provider: KHUSHI TAPIA Report Released Date/Time: Jan 04, 2024 01:17 PM Reporting [facility] [address] [address] Performing Lab: [facility] [address] [address] TSH 4.20 u[IU]/mL 0.35-5.00 May 11, 2024 07:47 AM [facility] VITAMIN B12 SERUM Specimen Type: SERUM No comment entered. Ordering Provider: KHUSHI TAPIA Report Released Date/Time: Jan 04, 2024 01:17 PM Reporting Lab: [facility] [address] [address] Performing Lab: [address] [address] VITAMIN B12 423 pg/mL 200-900 May 11, 2024 07:47 AM [facility] PSA SERUM Sp ecimen Type: SERUM No comment entered. Ordering Provider: KHUSHI TAPIA Report Released Date/Time: Jan 04, 2024 01:17 PM Reporting [facility] [address] [address] Performing Lab: [facility] [address] [address] PSA 7.24 ng/mL H 0.00-4.00 May 11, 2024 07:47 AM [facility] HEMOGLOBIN A1C PANEL BLOOD Specimen T ype: BLOOD Comment: Values obtained from A1C measurements can vary. For atypical A1C assays, a reported value of 7.0 could actually be between 6.72 and 7.28 if measured by a reference method. A reported value of 9.0 could actually be between 8.73 and 9.27. Ref: http://www.ngsp.org/CAPdata.asp Ordering Provider: KHUSHI TAPIA Report Released Date/Time: Jan 04, 2024 01:17 PM Reporting [facility] [address] [facility] [address] HEMOGLOBIN A1C 5.9 H 4.0-5.6 May 11, 2024 07:47 AM [facility] MICROALBUMIN CREATININE RATIO PANEL URINE Specimen Type: URINE No comment entered. Ordering Provider: KHUSHI TAPIA Report Released Date/Time: Jan 04, 2024 01:17 PM Reporting [facility] [address] [facility]: [facility] [address] MICROALBUMIN/CREATININE RATIO 25.2 mg/g 0-29.9 MICROALBUMIN,QUANTITATIVE 3.5 mg/dL RR U NAVAIL CREATININE URINE 138.81 mg/dL May 11, 2024 07:47 AM [facility] VITAMIN D (25-OH) SERUM Specimen Type: SERUM No comment entered. Ordering Provider: KHUSHI TAPIA Report Released Date/Time: Jan 04, 2024 01:17 PM Reporting [facility] [address] Performing Lab: [address] [address] VITAMIN D (25-OH) 25 ng/mL 20-50 May 11, 2024 07:47 AM [facility] URINALYSIS URINE S pecimen Type: URINE Comment: If Glucose = >500 and Ketones are positive, please alert the Physician. Ordering Provider: KHUSHI TAPIA Report Released Date/Time: Jan 04, 2024 01:17 PM Reporting Lab: [address] [address] Performing Lab: [address] [address] UA COLOR Light-Yellow Yellow UA APPEARANCE Clear Clear UA GLUCOSE Normal mg/dL Negative UA KETONES NEGATIVE mg/dL Negative UA BLOOD NEGATIVE mg/dL Negative UA PROTEIN NEGATIVE mg/dL Negative UA NITRITE NEGATIVE mg/dL Negative UA BILIRUBIN NEGATIVE mg/dL Negative UA SPECIFIC GRAVITY 1.025 H 1.016-1.022 UA pH 6.0 5.0-9.0 UA UROBILINOGEN Normal mg/dL <2.0 UA LEUKOCYTE NEGATIVE Negative May 11, 2024 07:47 AM [facility] LIVER FUNCTION SERUM Specimen Type: SERUM No comment entered. Ordering Provider: KHUSHI TAPIA Report Released Date/Time: Jan 04, 2024 01:17 PM Reporting Lab: [address] [address] Performing Lab: [address] [address] PROTEIN,TOTAL 7.4 g/dL 6.0-8.3 ALBUMIN 3.9 g/dL 3.5-5.0 ALKALINE PHOSPHATASE 54 U/L 40-150 AST 19 U/L 5-34 ALT 16 U/L BILIRUBIN, TOTAL 0.5 mg/dL 0.2-1.2 May 11, 2024 07:47 AM [facility] LIPID PANEL FASTING SERUM Specimen Ty pe: SERUM No comment entered. Ordering Provider: KHUSHI TAPIA Report Released Date/Time: Jan 04, 2024 01:17 PM Reporting Lab: [address] [address] Performing Lab: [facility] [address] [address] CHOLESTEROL 229 mg/dL H TRIGLYCERIDE 137 mg/dL 0-150 LDL calculated 152 mg/dL H 0-129 CHOL/HDL 4.6 HDL CHOLESTEROL 50 mg/dL 40-60 May 11, 2024 07:47 AM [facility] BASIC METABOLIC PANEL (fasting) SERUM Specimen Type: SERUM No comment entered. Ordering Provider: KHUSHI TAPIA Report Released Date/Time: Jan 04, 2024 01:17 PM Reporting Lab: [facility] [address] [address] Performing Lab: [address] [address] UREA NITROGEN 18 mg/dL 7-25 GLUCOSE 101 mg/dL H 65-100 SODIUM 137 mmol/L 135-145 POTASSIUM 4.4 mmol/L 3.5-5.0 CHLORIDE 105 mmol/L 100-110 CO2 22 meq/L 20-30 CALCIUM 8.9 mg/dL 8.5-10.2 CREATININE, Serum 0.79 mg/dL 0.50-1.40 eGFR(CKD-EPI 2020) >90 mL/min >60 May 11, 2024 07:47 AM [facility] CALCIUM SERUM Sp ecimen Type: SERUM No comment entered. Ordering Provider: KHUSHI TAPIA Report Released Date/Time: Jan 04, 2024 01:17 PM Reporting Lab: [facility] [address] [address] Performing Lab: [address] [address] CALCIUM 8.9 mg/dL 8.5-10.2 May 11, 2024 07:47 AM [facility] URIC ACID SERUM Sp ecimen Type: SERUM No comment entered. Ordering Provider: KHUSHI TAPIA Report Released Date/Time: Jan 04, 2024 01:17 PM Reporting Lab: [facility] [address] [address] Performing Lab: [address] [address] URIC ACID 7.4 mg/dL H 3.5-7.2 May 11, 2024 07:47 AM [facility] CBC AND DIFF (AUTO) BLOOD Specimen Ty pe: BLOOD No comment entered. Ordering Provider: KHUSHI TAPIA Report Released Date/Time: Jan 04, 2024 01:17 PM Reporting Lab: [facility] [address] [address] Performing Lab: [facility] [address] [address] WBC 9.10 10*3/uL 4.50-11.00 RBC 5.28 10*6/uL 4.23-5.66 HGB 14.8 g/dL 12.8-17 HCT 45.3 39.2-50.4 MCV 85.8 fL 82-99 MCHC 32.7 g/dL 30.8-35.1 PLT 392 10*3/uL H 140-360 MPV 10.5 fL 9.2-12.4 RDW-CV 15.3 12.0-16.0 MONO, ABS 0.78 10*3/uL 0.30-1.10 MCH 28.0 pg 26.2-32.6 NEUT % 48.6 43.7-75.8 LYMPH % 38.8 14.0-42.3 MONO % 8.6 5.1-13.7 EOS % 3.4 0.4-6.8 BASO % 0.5 0.1-2.0 NEUT, ABS 4.42 10*3/uL 2.20-7.60 LYMPH, ABS 3.53 10*3/uL H 1.00-3.20 EOS, ABS 0.31 10*3/uL 0.03-0.44 BASO, ABS 0.05 10*3/uL 0.01-0.13 IMMATURE GRAN % 0.1 0.0-0.7 IMMATURE GRAN, ABS 0.01 10*3/uL 0.00-0.0 6 NRBC % 0.0 0.0-0.0 NRBC, ABS 0.00 10*3/uL 0.00-0.00 Apr 25, 2024 11:25 AM [facility] BASIC METABOLIC PANEL PLASMA Specimen Type: PL ASMA Comment: 1+ Hemolysis may falsely cause increased Potassium result 1+ Hemolysis may falsely cause elevated Chloride result 1+ Hemolysis may falsely cause decreased Creatinine result Ordering Provider: SKYLER OVALLES Report Released Date/Time: Apr 25, 2024 11:15 AM Reporting Lab: [place] [address] [phone] Performing Lab: [place] [address] [phone] UREA NITROGEN 10 mg/dL 6-22 CALCIUM 9.3 mg/dL 8.5-10.5 CREATININE, SERUM OR PLASMA 0.77 mg/dL 0 .60-1.30 GLUCOSE 96 mg/dL 70-100 SODIUM (SERUM/PLASMA) 139 mmol/L 134-145 POTASSIUM 4.8 mmol/L 3.6-5.2 CHLORIDE 106 mmol/L 100-111 CO2 24 mmol/L 21-29 EGFRCr >90 Apr 25, 2024 11:25 AM [facility] PSA, FREE & TOT SERUM Specimen Type: SERUM No comment entered. Ordering Provider: SKYLER OVALLES Report Released Date/Time: Apr 25, 2024 11:15 AM Reporting Lab: [place] [address] [address] Performing Lab: [place] [address] [address] PSA-TOT 9.59 ng/mL H 0.000-4.000 FREE PSA 2.029 ng/mL 0.100-30.000 PSA-PERCENT FREE 21.17 Apr 25, 2024 11:20 AM [facility] URINALYSIS URINE Specimen Type: URINE No comment entered. Ordering Provider: SKYLER OVALLES Report Released Date/Time: Apr 25, 2024 11:15 AM Reporting Lab: [place] [address] [phone] Performing Lab: [place] [address] [phone] URINE COLOR Yellow -YELLOW-STRAW SPECIFIC GRAVITY 1.008 1.005-1.035 UROBILINOGEN NEG mg/dL NEG URINE BILIRUBIN NEG mg/dL NEG URINE KETONES NEG mg/dL NEG URINE GLUCOSE (UA) NEG mg/dL NEG URINE PROTEIN (UA) NEG mg/dL NEG URINE PH 6.0 5.0-9.0 APPEARANCE CLEAR CLEAR URINE BLOOD NEG NEG URINE NITRITE NEG NEG LEUKOCYTE EST (UA) NEG NEG Vital Signs: All taken on the encounter date This section contains inpatient and outpatient Vital Signs collected on the date of the Encounter. Date/Time Temperature Pulse Blood Pressure Respiratory Rate SP02 Pain Height Weight Body Mass Index Source Apr 19, 2024 11:31 AM 97.8 60 137/65 18 98 0 63 137 24 [facility] Advance Directives: All historical and [...] AM LR MICROBIOLOGY RE PORT: Reporting Lab: [facility] [CLIA# [id number]] [address] [place] [address] Accession [UID]: [id number] [[id number]] Received: Apr 25, 2024@12:00 Collection sample: URINE (CLEAN CATCH) Collection date: Apr 25, 2024 11:20 Site/Specimen: URINE Provider: SKYLER OVALLES Test(s) ordered: URINE C&S (CLEAN CATCH)....... completed: Apr 26, 2024 08:32 * BACTERIOLOGY FINAL REPORT => Apr 26, 2024 08:32 TECH CODE: [id number] Bacteriology Remark(s): NO GROWTH =--=--=--=--=--=--=--=--=- -=--=--=--=--=--=--=--=--= --=--=--=--=--=--=--=--=-- Performing Laboratory: Bacteriology Report Performed By: [facility] [CLIA# [id number]] [address] [place] [address] ANSHUL JARAMILLO [facility] Encounter Notes: All associated encounter notes This section contains the clinical notes associated to the Encounter. Date/Time Encounter Note(s) Provider Source Apr 19, 2024 03:03 PM GASTROENTEROLOGY E & M NOTE: LOCAL TITLE: GASTROENTEROLOGY FOLLOW-UP STANDARD TITLE: GASTROENTEROLOGY E & M NOTE DATE OF NOTE: APR 19, 2024@15:03 ENTRY DATE: APR 19, 2024@15:03:22 AUTHOR: LULU BAR APRN EXP COSIGNER: URGENCY: STATUS: COMPLETED GASTROENTEROLOGY FOLLOW-UP Has ADDENDA Summary from last visit: Change in bowel habits Alternating constipation and diarrhea Prostate Cancer This is pleasant 78 y/o male with alternating constipation and diarrhea for the past few months. Unclear etiology. I will obtain diarrhea workup to exclude colitis, malabsorption, infection, and celiac disease. Colonoscopy to rule CRC or extrinsic compression of bowel (possible from Prostate Ca)creating outlet obstruction. Corunna lost to follow up with urology. He was displeased with urologist when last seen and did not return. Imaging was not prostate specific and it is unclear if CT findings suggest progression. Cor[place] agreeable to urology consult for evaluation. Today visit: 78 y/o male presents for follow up change in bowel habits with alternating constipation and diarrhea. He reports all symptoms resolved status post colonoscopy. Colonoscopy 03/30/24 demonstrated internal hemorrhoids and was otherwise negative. Random biopsies negative MC. Stool studies normal. ROS: 12 points review of systems were evaluated and were unremarkable except for the ones mentioned in HPI. Allergy/Adverse Reaction: Patient has answered NKA Active Problems Vitamin D deficiency E55.9 04/12/2019 ADRY MORFIN Vitamin B12 deficiency D51.9 03/14/2019 ADRY MORFIN Prostate cancer D07.5 03/14/2019 ADRY MORFIN PHYSICAL EXAMINATION: Temperature: 97.8 F [36.6 C] (04/19/2024 11:31) Pulse: 60 (04/19/2024 11:31) Respirations: 18 (04/19/2024 11:31) Blood pressure: 137/65 (04/19/2024 11:31) Height: 63 in [160.0 cm] (04/19/2024 11:31) Weight: 137 lb [62.14 kg] (04/19/2024 11:31) Body Mass Index is 24.3 General: Alert. Oriented. No acute distress. Head & Neck: Anicteric sclera. Non-pale conjunctiva. No thyromegaly. No adenopathy. Respiratory: Lungs CTAB. No wheezes, rhonchi, or rubs. Cardiovascular: Normal rate and rhythm. S1 and S2 no murmur, gallop, or rub. Adequate pulses. Gastrointestinal: No significant distention. Normal bowel sounds. On palpation: Soft. Non-tender. No guarding. No rebound tenderness. Liver & Spleen: No significant organomegaly. No obvious ascites. No dilated collateral abdominal veins. No spider angiomas. No díaz erythema. No asterixis. Extremities: No edema. Blood Tests: HCT: 44.7 (03/07/20 10:20) 43.8 (03/08/24 11:45) HGB: 14.6 (03/07/20 10:20) 14.4 (03/08/24 11:45) MCHC: 32.5 (03/07/20 10:20) 32.9 (03/08/24 11:45) MCV: 85.6 (03/07/20 10:20) 85.6 (03/08/24 11:45) PLT: 319 (03/07/20 10:20) 404 (03/08/24 11:45) RBC: 5.23 (03/07/20 10:20) 5.12 (03/08/24 11:45) WBC: 6.7 (03/07/20 10:20) 7.1 (03/08/24 11:45) BUN: 11 (03/07/20 10:20) 14 (03/08/24 11:45) CALCIUM: 9.0 (03/07/20 10:20) 8.9 (03/08/24 11:45) CL: 104 (03/07/20 10:20) 110 (03/08/24 11:45) CO2: 27 (03/07/20 10:20) 20 (03/08/24 11:45) EGFRCr: >90 (03/08/24 11:45) GLUCOSE: 94 (03/07/20 10:20) 92 (03/08/24 11:45) K: 4.8 (03/07/20 10:20) 3.9 (03/08/24 11:45) S CREAT: 0.80 (03/07/20 10:20) 0.73 (03/08/24 11:45) SODIUM: 140 (03/07/20 10:20) 139 (03/08/24 11:45) A/G Rat: 1.2 (03/07/20 10:20) 1.1 (03/08/24 11:45) ALBUMIN: 3.9 (03/07/20 10:20) 3.8 (03/08/24 11:45) ALK MARIANA: 66 (03/07/20 10:20) 61 (03/08/24 11:45) AST: 24 (03/07/20 10:20) 29 (03/08/24 11:45) Alt: 19 (03/07/20 10:20) 14 (03/08/24 11:45) BILI,T: 0.7 (03/07/20 10:20) 0.4 (03/08/24 11:45) D BILI: 0.2 (03/07/20 10:20) 0.1 (03/08/24 11:45) PROTEIN: 7.2 (03/07/20 10:20) 7.2 (03/08/24 11:45) The OBJECT PT INR X3 was NOT found...Contact IRM. No data available for: LIPASE (CALLES) SLT - CRP Most Recent No data available for: C REACTIVE PROTEIN (NON-CARDIAC) CARDIO CRP ([facility]) CRP-SF 3.8760/ Endoscopy: No esophagogastroduodenoscopy procedure found Date: Mar@08:15 COLONOSCOPY IMAGING: CT abdomen: No Radiology exams found. Ultrasound of Abdomen: No Radiology exams found. IMPRESSIONS: Change in bowel habits - colonoscopy negative Alternating constipation and diarrhea, resolved symptoms resolved after colonoscopy. Symptoms probably resulted from mild dysbiosis that has since resolved. RECOMMENDATIONS: [place] return to [place] next month. Will follow up with him when he return to [place] next February to ensure stability of symptoms. /shea/ LULU BAR APRN-[employer] Signed: 04/19/2024 15:43 Receipt Acknowledged By: 04/19/2024 18:23 /shea/ LOLA FRANKLIN GI/HEPATOLOGY PHYSICIAN 04/19/2024 ADDENDUM STATUS: COMPLETED Agree with evaluation, assessment and plan outlined by GI provider Lulu Bar APRN. /madhuri FRANKLIN GI/HEPATOLOGY PHYSICIAN Signed: 04/19/2024 18:23 LULU BAR [facility]
--- OUTSIDE RECORDS SUMMARY | 2024-04-25 07:00 | XMS_ITS | Encounter Summary ---
Author Name [facility] [place] [facility] [place] [address] [place] [id number] Care Team Providers Care Ammonia Still Operator Name Role Phone KHUSHI MONTE Primary Care Provider Unavailabl e Insurance Providers: [...] Name Patient's Relationship to Policy Roa AETNA [facility] (WNR) MEDICARE ADVANTAGE [facility] ([facility]) Feb 07, 2021 [id number] [phone] CYNTHIA JOSÉ PATIENT MEDICARE (WNR) MEDICARE (M) PART B Aug 07, 1998 PART B [id number] CYNTHIA JOSÉO PATIENT MEDICARE (WNR) MEDICARE (M) PART B Aug 07, 1998 PART B [id number] ARNAV,CYNTHIA DECKERO PATIENT MEDICARE (WNR) MEDICARE (M) PART B Aug 07, 1998 PART B [id number] CYNTHIA JOSÉO PATIENT MEDICARE (WNR) MEDICARE (M) PART B Aug 07, 1998 PART B [id number] [phone] ARNAV,CYNTHIA DECKERO PATIENT MEDICARE (WNR) MEDICARE (M) PART B Aug 07, 1997 PART B [id number] [phone] ARNAV,CYNTHIA IDIO PATIENT MEDICARE (WNR) MEDICARE (M) PART A Oct 08, 1996 PART A [id number] [phone] ARNAV,EL IDIO PATIENT MEDICARE (WNR) MEDICARE (M) PART A Oct 08, 1996 PART A [id number] [phone] ARNAV,CYNTHIA IDIO PATIENT MEDICARE (WNR) MEDICARE (M) PART A Oct 08, 1996 PART A [id number] ARNAV,CYNTHIA IDIO PATIENT MEDICARE (WNR) MEDICARE (M) PART A Oct 08, 1996 PART A [id number] ARNAV,CYNTHIA IDIO PATIENT MEDICARE (WNR) MEDICARE (M) PART A Oct 08, 1996 PART A [id number] [phone] ARNAV,CYNTHIA DECKERO PATIENT Selected Encounter This section includes the information on [place] at [place] for the Encounter. Date/Time Encounter Type Encounter Description Reason Provider Source Apr 25, 2024 11:00 AM OFFICE O/P NEW LOW 30 MIN UROLOGY CLINIC ICD-10-CM C61 Malignant neoplasm of prostate MARK OVALLES Encounter Template Text not used by [place] Assessments - Encounter Diagnoses This section includes the primary and secondary diagnoses documented for the Encounter. Date/Time Primary/Secondary Diagnosis Diagnosis Name Provider Source Apr 25, 2024 11:28 AM PRIMARY Malignant neoplasm of prostate TEA OVALLES [facility] Apr 25, 2024 11:28 AM SECONDARY Elevated prostate specific antigen [PSA] TEA OVALLES [facility] Plan of Treatment: Future Appointments (+ 6 months) and Future Tests (+/- 45 days) The Plan of Treatment section includes future care activities for the patient from all [place] treatmentfacilities. This section includes future appointments and future orders which are active, pending or scheduled. Future Appointments This section includes appointments that were scheduled to occur 6 months from the date of the Encounter, up to a maximum of 20 appointments. The data comes from all [place] treatment facilities. Appointment Date/Time Appointment Type Appointme nt Facility Name May 16, 2024 01:00 PM AMBULATORY - MEDICINE [facility] May 24, 2024 10:00 AM [place]ICINE [place] [facility] [place] [facility] June 07, 2024 02:30 PM AM[facility]ATORY - MEDICINE [facility] June 13, 2024 12:45 PM AM[place]UL[place]ORY [place]ICINE [place] [facility] [place] [facility] Active, Pending, and Scheduled Orders This section includes a listing of several types of active, pending, and scheduled orders, including clinic medications orders, diagnostic test orders, procedure orders and consult orders; where the start date of the order is 45 days before the date of the Encounter or 45 days after the date of theEncounter. The data comes from all [place] treatment facilities. Test Date/Time Test Type Test Details Facility Name May 16, 2024 01:18 PM Consult [facility] Cons [employer] [facility] Lab Results: +/- 30 days of the [...] Type Comment May 11, 2024 07:47 AM [facility] TSH SERUM Specimen Type: SERUM No comment entered. Ordering Provider: KHUSHI MONTE Report Released Date/Time: Jan 04, 2024 01:17 PM Reporting Lab: [address] [address] Performing Lab: [facility] [address] [address] TSH 4.20 u[IU]/mL 0.35-5.00 May 11, 2024 07:47 AM [facility] VITAMIN B12 SERUM Specimen Type: SERUM No comment entered. Ordering Provider: KHUSHI MONTE Report Released Date/Time: Jan 04, 2024 01:17 PM Reporting Lab: [facility] [address] [facility] [address] Performing Lab: [address] [address] VITAMIN B12 423 pg/mL 200-900 May 11, 2024 07:47 AM [facility] PSA SERUM Sp ecimen Type: SERUM No comment entered. Ordering Provider: KHUSHI MONTE Report Released Date/Time: Jan 04, 2024 01:17 PM Reporting Lab: [facility] [address] [address] Performing Lab: [facility] [address] [address] PSA 7.24 ng/mL H 0.00-4.00 May 11, 2024 07:47 AM [facility] HEMOGLOBIN A1C PANEL BLOOD Specimen T ype: BLOOD Comment: Values obtained from A1C measurements can vary. For atypical A1C assays, a reported value of 7.0 could actually be between 6.72 and 7.28 if measured by a reference method. A reported value of 9.0 could actually be between 8.73 and 9.27. Ref: http://www.ngsp.org/CAPdata.asp Ordering Provider: KHUSHI MONTE Report Released Date/Time: Jan 04, 2024 01:17 PM Reporting Lab: [facility] [address] Performing Lab: [facility] [address] [address] HEMOGLOBIN A1C 5.9 H 4.0-5.6 May 11, 2024 07:47 AM [facility] MICROALBUMIN CREATININE RATIO PANEL URINE Specimen Type: URINE No comment entered. Ordering Provider: KHUSHI MONTE Report Released Date/Time: Jan 04, 2024 01:17 PM Reporting Lab: [facility] [address] Performing Lab: [facility] [address] MICROALBUMIN/CREATININE RATIO 25.2 mg/g 0-29.9 MICROALBUMIN,QUANTITATIVE 3.5 mg/dL RR U NAVAIL CREATININE URINE 138.81 mg/dL May 11, 2024 07:47 AM [facility] VITAMIN D (25-OH) SERUM Specimen Type: SERUM No comment entered. Ordering Provider: KHUSHI MONTE Report Released Date/Time: Jan 04, 2024 01:17 PM Reporting Lab: [facility] [address] Performing Lab: [address] [address] VITAMIN D (25-OH) 25 ng/mL 20-50 May 11, 2024 07:47 AM [facility] URINALYSIS URINE S pecimen Type: URINE Comment: If Glucose = >500 and Ketones are positive, please alert the Physician. Ordering Provider: KHUSHI MONTE Report Released Date/Time: Jan 04, 2024 01:17 PM Reporting Lab: [address] [address] Performing Lab: [address] [address] UA COLOR Light-Yellow Yellow UA APPEARANCE Clear Clear UA GLUCOSE Normal mg/dL Negative UA KETONES NEGATIVE mg/dL Negative UA BLOOD NEGATIVE mg/dL Negative UA PROTEIN NEGATIVE mg/dL Negative UA NITRITE NEGATIVE mg/dL Negative UA BILIRUBIN NEGATIVE mg/dL Negative UA SPECIFIC GRAVITY 1.025 H 1.016-1.022 UA pH 6.0 5.0-9.0 UA UROBILINOGEN Normal mg/dL <2.0 UA LEUKOCYTE NEGATIVE Negative May 11, 2024 07:47 AM [facility] LIVER FUNCTION SERUM Specimen Type: SERUM No comment entered. Ordering Provider: KHUSHI MONTE Report Released Date/Time: Jan 04, 2024 01:17 PM Reporting Lab: [address] [address] Performing Lab: [address] [address] PROTEIN,TOTAL 7.4 g/dL 6.0-8.3 ALBUMIN 3.9 g/dL 3.5-5.0 ALKALINE PHOSPHATASE 54 U/L 40-150 AST 19 U/L 5-34 ALT 16 U/L BILIRUBIN, TOTAL 0.5 mg/dL 0.2-1.2 May 11, 2024 07:47 AM [facility] LIPID PANEL FASTING SERUM Specimen Ty pe: SERUM No comment entered. Ordering Provider: KHUSHI MONTE Report Released Date/Time: Jan 04, 2024 01:17 PM Reporting Lab: [address] [address] Performing Lab: [facility] [address] [facility] [address] CHOLESTEROL 229 mg/dL H TRIGLYCERIDE 137 mg/dL 0-150 LDL calculated 152 mg/dL H 0-129 CHOL/HDL 4.6 HDL CHOLESTEROL 50 mg/dL 40-60 May 11, 2024 07:47 AM [facility] BASIC METABOLIC PANEL (fasting) SERUM Specimen Type: SERUM No comment entered. Ordering Provider: KHUSHI MONTE Report Released Date/Time: Jan 04, 2024 01:17 PM Reporting Lab: [facility] [address] [facility] [address] Performing Lab: [facility] [address] [facility] [address] UREA NITROGEN 18 mg/dL 7-25 GLUCOSE 101 mg/dL H 65-100 SODIUM 137 mmol/L 135-145 POTASSIUM 4.4 mmol/L 3.5-5.0 CHLORIDE 105 mmol/L 100-110 CO2 22 meq/L 20-30 CALCIUM 8.9 mg/dL 8.5-10.2 CREATININE, Serum 0.79 mg/dL 0.50-1.40 eGFR(CKD-EPI 2020) >90 mL/min >60 May 11, 2024 07:47 AM [facility] CALCIUM SERUM Sp ecimen Type: SERUM No comment entered. Ordering Provider: KHUSHI MONTE Report Released Date/Time: Jan 04, 2024 01:17 PM Reporting Lab: [facility] [address] [facility] [address] Performing Lab: [facility]USE[facility] [address] [facility] [address] CALCIUM 8.9 mg/dL 8.5-10.2 May 11, 2024 07:47 AM [facility] URIC ACID SERUM Sp ecimen Type: SERUM No comment entered. Ordering Provider: KHUSHI MONTE Report Released Date/Time: Jan 04, 2024 01:17 PM Reporting Lab: [facility] [address] [facility] [address] Performing Lab: [address] [address] URIC ACID 7.4 mg/dL H 3.5-7.2 May 11, 2024 07:47 AM [facility] CBC AND DIFF (AUTO) BLOOD Specimen Ty pe: BLOOD No comment entered. Ordering Provider: KHUSHI MONTE Report Released Date/Time: Jan 04, 2024 01:17 PM Reporting Lab: [facility] [address] [facility] [address] Performing Lab: [facility] [address] [facility] [address] WBC 9.10 10*3/uL 4.50-11.00 RBC 5.28 10*6/uL [...] 10*3/uL 0.00-0.00 Apr 25, 2024 11:25 AM [facility] BASIC METABOLIC PANEL PLASMA Specimen Type: PL ASMA Comment: 1+ Hemolysis may falsely cause increased Potassium result 1+ Hemolysis may falsely cause elevated Chloride result 1+ Hemolysis may falsely cause decreased Creatinine result Ordering Provider: SKYLER OVALLES Report Released Date/Time: Apr 25, 2024 11:15 AM Reporting Lab: [place] [address] [address] Performing Lab: [place] [address] UREA NITROGEN 10 mg/dL 6-22 CALCIUM 9.3 mg/dL 8.5-10.5 CREATININE, SERUM OR PLASMA 0.77 mg/dL 0 .60-1.30 GLUCOSE 96 mg/dL 70-100 SODIUM (SERUM/PLASMA) 139 mmol/L 134-145 POTASSIUM 4.8 mmol/L 3.6-5.2 CHLORIDE 106 mmol/L 100-111 CO2 24 mmol/L 21-29 EGFRCr >90 Apr 25, 2024 11:25 AM [facility] PSA, FREE & TOT SERUM Specimen Type: SERUM No comment entered. Ordering Provider: SKYLER OVALLES Report Released Date/Time: Apr 25, 2024 11:15 AM Reporting Lab: [place] [address] [address] [place] [address] Performing Lab: [place] [address] PSA-TOT 9.59 ng/mL H 0.000-4.000 FREE PSA 2.029 ng/mL 0.100-30.000 PSA-PERCENT FREE 21.17 Apr 25, 2024 11:20 AM [facility] URINALYSIS URINE Specimen Type: URINE No comment entered. Ordering Provider: SKYLER OVALLES Report Released Date/Time: Apr 25, 2024 11:15 AM Reporting Lab: [place] [address] [address] [place] [id number] Performing Lab: [address] [place] [phone] URINE COLOR Yellow -YELLOW-STRAW SPECIFIC GRAVITY 1.008 [...] Height Weight Body Mass Index Source Apr 25, 2024 10:36 AM 97.6 60 143/69 16 97 0 [facility] Advance Directives: All historical and [...] AM LR MICROBIOLOGY RE PORT: Reporting Lab: [facility] [CLIA# [id number]] [address] [place] [address] Accession [UID]: [id number] [[id number]] Received: Apr 25, 2024@12:00 Collection sample: URINE (CLEAN CATCH) Collection date: Apr 25, 2024 11:20 Site/Specimen: URINE Provider: SKYLER OVALLES Test(s) ordered: URINE C&S (CLEAN CATCH)....... completed: Apr 26, 2024 08:32 * BACTERIOLOGY FINAL REPORT => Apr 26, 2024 08:32 TECH CODE: [id number] Bacteriology Remark(s): NO GROWTH =--=--=--=--=--=--=--=--=- -=--=--=--=--=--=--=--=--= --=--=--=--=--=--=--=--=-- Performing Laboratory: Bacteriology Report Performed By: [facility] [CLIA# [id number]] [address] [place] [address] ANSHUL JARAMILLO [facility] Encounter Notes: All associated encounter notes This section contains the clinical notes associated to the Encounter. Date/Time Encounter Note(s) Provider Source Apr 25, 2024 10:59 AM UROLOGY CONSULT: LOCAL TITLE: UROLOGY CONSULT STANDARD TITLE: UROLOGY CONSULT DATE OF NOTE: APR 25, 2024@10:59 ENTRY DATE: APR 25, 2024@10:59:41 AUTHOR: SKYLER OVALLES COSIGNER: URGENCY: STATUS: COMPLETED UROLOGY CONSULT Has ADDENDA UROLOGY OFFICE FOLLOW UP: identified self by: Full name, Full social security number, & . HISTORY OF PRESENT ILLNESS: 78 y/o MALE diagnosed with prostate Ca, 3+4 diagnosed [address] Pérez with urology group in [place], s/p 2 biopsies, pt was offered for prostatectomy , but decided to surveilance last PSa documented in [facility] 8, recent visit jan 28, 2023 . MRI prostate 12/29- pirads 2 , prostatomegaly. PAST MEDICAL HISTORY: Active Problems Vitamin D deficiency E55.9 Vitamin B12 deficiency D51.9 Prostate cancer D07.5 PAST SURGICAL HISTORY: Reviewed in EMR ALLERGIES: Patient has answered NKA Family History: Pt denies urologic cancers SOCIAL HX: Pt denies tobacco, ETOH or illicit drugs MEDICATIONS: Medical Reconciliation completed Active Outpatient Medications (including Supplies): Active Outpatient Medications Status 1) PSYLLIUM ORAL PWD MIX 3 TEASPOONFULS IN 8OZ LIQUID DAILY ACTIVE Indication: FOR CONSTIPATION VITAL SIGNS: Measurement DT TEMP RESP PULSE BP F(C) 04/25/2024 10:36 97.6(36.4) 16 60 143/69 04/19/2024 11:31 97.8(36.6) 18 60 137/65 03/30/2024 14:40 20 64 140/82 Measurement DT WEIGHT PAIN LB(KG)[BMI] 04/25/2024 10:36 0 04/19/2024 11:31 137(62.14)[24] 0 03/30/2024 14:40 0 PHYSICAL EXAM: General: NAD, pleasant, conversant HEENT: NC/AT Respiratory: Non labored breathing, no accessory muscle use Abdomen: soft, NT/ND, No CVAT B/L Skin: No pallor, jaundice or cyanosis Extremities: Warm lower extremities; no lower extremity edema Genitourinary: no suprapubic tenderness to palpation, non palpable urinary bladder Neurological: A&O to person, place, time, situation Psychiatric: Normal affect. Cooperative LABS: FrPSA%: 23.87 (03/20/19 08:35) 20.01 (03/07/20 10:20) FreePSA: 1.325 (03/20/19 08:35) 1.469 (03/07/20 10:20) PSA-TOT: 5.55 (03/20/19 08:35) 7.34 (03/07/20 10:20) REFERENCE COLLECTION TEST NAME RESULT RANGE DATE CREATININE, SERUM OR PLASMA 0.73 mg/dL 0.60 - 1.30 Mar 08, 2024 Collection DT Specimen Test Name Result Units Ref Range 03/08/2024 11:45 PLASMA EGFRCr >90 03/07/2020 10:20 PLASMA eGFR >90 mL/min Ref: >=60 No data available IMAGING: No Radiology exams found. No data available for: MRI KIDNEY WITH CONTRAST No Radiology exams found. ---- ENDOCRINOLOGY ---- SERUM Mar 07 Mar 07 Mar 20Mar 11 Reference 2020 2020 2019 2019 10:20 10:20 08:35 08:35 Units Ranges - PSA-TOT 7.34 H 5.55 H ng/mL .1 - 4 FreePSA 1.47 1.33 ng/mL FrPSA% 20.01 L 23.87 L % 25 - 100 PSA-AL ng/mL Ref: <=.35 PSA INT Year ASSESSMENT/PLAN: 78 y/o MALE diagnosed with prostate Ca, 3+4 diagnosed 10 years ago as per patient report with Dr. Pérez with urology group in [place], s/p 2 biopsies, pt was offered for prostatectomy , but decided to surveilance pt state was seen by various urologists- Dr. Rogel in [place], Dr. Monte and Dr. Delgado prior , and has records at home, was encouraged to bring to medical records to be uploaded. Last PSa documented in [facility] was 8, recent visit to urology Group in [place] was jan 28, 2023 as per report in [facility]- MRI prostate 12/29- pirads 2 , prostatomegaly. during 04/25/2024 visit [facility]- non tender, no masses palpated - limited exam 2/2 body habitus plan will obtain ua, c/s , repeat PSA, chem 8 for cr will repeat MRI - patient is worried for prostate cancer and is thinking to go to [place] for possible prostatectomy. patient is leaving May to go back to [place] and will be back in [place] jan 2025, pt was encouraged to proceed with Urology f/u in [place] if unable to obtain prostate MRI in [place] prior to leaving. Labs, imaging, medication reconciliation, diagnosis and plan discussed with patient in detail all questions answered patient shows understanding plan PATIENT EDUCATION & INSTRUCTION: Active urologic problems, pertinent medications, lab and imaging data were discussed. Indications, risks, alternatives to treatment plan, including signs and symptoms to report were detailed. Routine vs. urgent follow-up, and expectations of treatment were also discussed. The patient expressed understanding and acknowledged personal responsibility for care, compliance and follow-up. Provided no further concerns arise, the patient should return to clinic per my instructions above.The patient was given opportunity to ask questions, which I was able to answer to their satisfaction. Patient was offered a director sales and trade marketing during the physical examination and patient declined. Medication were reviewed and updated in CPRS & reconcilation was completed. Medication education and counseling for new medications added today was provided based on individual needs. This included why the medication was prescribed, how they should take it and for how long, what to expect from it, and what happens if medication is not taken as prescribed. By signing this note I certify that the patient, caregiver, or family member demonstrated understanding. A copy of the updated medication list was also given that included the medications added, changed, and/or discontinued today. Tobacco Counseling PROVIDERS: Educated on risks associatedwith tobacco use and encouraged to remain abstinent. /shea/ SKYLER OVALLES physician assistant in nursing Signed: 04/25/2024 11:28 04/25/2024 ADDENDUM STATUS: COMPLETED PSA, FREE & TOT BLOOD (GOLD-SST) SERUM WC LB #[id number] Collection time: Apr 25, 2024@11:25 Test Name Result Units Range --------- ------ ----- ----- PSA-TOT 9.59 H ng/mL 0.000 - 4.000 FREE PSA 2.029 ng/mL 0.100 - 30.000 PSA-PERCENT FREE 21.17 % Comments: Ordering Provider: Skyler Ovalles BS Report Released Date/Time: Apr 25, 2024@13:53 Reporting Lab: [facility] [CLIA# [id number]] [address] [place] [address] Performing Lab: [facility] [CLIA# [id number]] [address] [place] [address] Patient is called with results of repeat PSA, will proceed with original plan and follow-up with MRI and rebiopsy TRUS versus MRI fusion. /shea/ SKYLER OVALLES physician assistant in nursing Signed: 04/25/2024 15:47 SKYLER OVALLES [facility]
--- OUTSIDE RECORDS SUMMARY | 2024-05-16 09:00 | XMS_ITS | Encounter Summary ---
Author Name [facility] [place] Organization [place] Address [address] [place] [address] Care Team Providers Care Senior Sas Developer Name Role Phone KHUSHI TAPIA Primary Care [...] Name Patient's Relationship to Policy Roa AETNA [facility] (R) MEDICARE ADVANTAGE [facility] ([facility]) Feb 07, 2021 [id number] [phone] CYNTHIA JOSÉO PATIENT MEDICARE (WNR) MEDICARE (M) PART B Aug 07, 1998 PART B [id number] CYNTHIA JOSÉO PATIENT MEDICARE (WNR) MEDICARE (M) PART B Aug 07, 1998 PART B [id number] ARNAV,CYNTHIA DECKERO PATIENT MEDICARE (WNR) MEDICARE (M) PART B Aug 07, 1998 PART B [id number] CYNTHIA JOSÉO PATIENT MEDICARE (WNR) MEDICARE (M) PART B Aug 07, 1998 PART B [id number] 22A ARNAV,CYNTHIA DECKERO PATIENT MEDICARE (WNR) MEDICARE (M) PART B Aug 07, 1997 PART B [id number] 22A ARNAV,CYNTHIA IDIO PATIENT MEDICARE (WNR) MEDICARE (M) PART A Oct 08, 1996 PART A [id number] 22A ARNAV,CYNTHIA IDIO PATIENT MEDICARE (WNR) MEDICARE (M) PART A Oct 08, 1996 PART A [id number] ARNAV,CYNTHIA IDIO PATIENT MEDICARE (WNR) MEDICARE (M) PART A Oct 08, 1996 PART A [id number] [phone] ARNAV,CYNTHIA IDIO PATIENT MEDICARE (WNR) MEDICARE (M) PART A Oct 08, 1996 PART A [id number] ARNAV,CYNTHIA IDIO PATIENT MEDICARE (WNR) MEDICARE (M) PART A Oct 08, 1996 PART A [id number] [phone] CYNTHIA JOSÉO PATIENT Selected Encounter This section includes the information on record at [place] for the Encounter. Date/Time Encounter Type Encounter Description Reason Provider Source May 16, 2024 01:00 PM OFFICE O/P EST MOD 30 MIN PRIMARY CARE/MEDICINE ICD-10-CM I50.9 Heart failure, unspecified KHUSHI TAPIA Encounter Template Text not used by [place] Assessments - Encounter Diagnoses This section includes the primary and secondary diagnoses documented for the Encounter. Date/Time Primary/Secondary Diagnosis Diagnosis Name Provider Source May 16, 2024 01:34 PM PRIMARY Heart failure, unspecified KHUSHI TAPIA May 16, 2024 01:34 PM SECONDARY Carcinoma in situ of prostate KHUSHI TAPIA Plan of Treatment: Future Appointments (+ 6 months) and Future Tests (+/- 45 days) The Plan of Treatment section includes future care activities for the patient from all [place] treatmentfacilities. This section includes future appointments and future orders which are active, pending or scheduled. Future Appointments This section includes appointments that were scheduled to occur 6 months from the date of the Encounter, up to a maximum of 20 appointments. The data comes from all [place] treatment facilities. Appointment Date/Time Appointment Type Appointme nt Facility Name May 24, 2024 10:00 AM AMBULATORY - MEDICINE [place] [facility] [place] [facility] June 07, 2024 02:30 PM AMB[facility]ORY - MEDICINE [facility] June 13, 2024 12:45 PM [facility] [place] [facility] Active, Pending, and Scheduled Orders This section includes a listing of several types of active, pending, and scheduled orders, including clinic medications orders, diagnostic test orders, procedure orders and consult orders; where the start date of the order is 45 days before the date of the Encounter or 45 days after the date of theEncounter. The data comes from all [place] treatment facilities. Test Date/Time Test Type Test Details Facility Name May 16, 2024 01:18 PM Consult Order [facility] Medical Information Specialist's [facility] June 19, 2024 04:15 PM Consult Order [facility] Medical Information Specialist's [facility] Lab Results: +/- 30 days of the encounter This section includes the Chemistry and Hematology Lab Results on record with [place] for the patient. Radiology Reports and Pathology Reports are provided separately, in subsequent sections. Lab Results This section contains the Chemistry/Hematology Results that were resulted 30 days before or 30 daysafter the date of the Encounter. Date/Time Source Result Type Result - Unit Interpretation Reference Range Specimen Type Comment May 11, 2024 07:47 AM [place] TSH SERUM Specimen Type: SERUM No comment entered. Ordering Provider: KHUSHI TAPIA Report Released Date/Time: Jan 04, 2024 01:17 PM Reporting Lab: [address] [address] Performing Lab: [facility] [address] [facility] [address] TSH 4.20 u[IU]/mL 0.35-5.00 May 11, 2024 07:47 AM [place] VITAMIN B12 SERUM Specimen Type: SERUM No comment entered. Ordering Provider: KHUSHI TAPIA Report Released Date/Time: Jan 04, 2024 01:17 PM Reporting Lab: [facility] [address] [facility] [address] Performing Lab: [address] [address] VITAMIN B12 423 pg/mL 200-900 May 11, 2024 07:47 AM [place] PSA SERUM Sp ecimen Type: SERUM No comment entered. Ordering Provider: KHUSHI TAPIA Report Released Date/Time: Jan 04, 2024 01:17 PM Reporting [facility]: [facility] [address] [address] Performing Lab: [facility] [address] [address] PSA 7.24 ng/mL H 0.00-4.00 May 11, 2024 07:47 AM [place] HEMOGLOBIN A1C PANEL BLOOD Specimen T ype: [...] Jan 04, 2024 01:17 PM Reporting Lab: [facility] [address] Performing [facility]: [facility] [address] HEMOGLOBIN A1C 5.9 H 4.0-5.6 May 11, 2024 07:47 AM [place] MICROALBUMIN CREATININE RATIO PANEL URINE Specimen Type: URINE No comment entered. Ordering Provider: KHUSHI TAPIA Report Released Date/Time: Jan 04, 2024 01:17 PM Reporting Lab: [facility] [address] Performing [facility]: [facility] [address] MICROALBUMIN/CREATININE RATIO 25.2 mg/g 0-29.9 MICROALBUMIN,QUANTITATIVE 3.5 mg/dL RR U NAVAIL CREATININE URINE 138.81 mg/dL May 11, 2024 07:47 AM [place] VITAMIN D (25-OH) SERUM Specimen Type: SERUM No comment entered. Ordering Provider: KHUSHI TAPIA Report Released Date/Time: Jan 04, 2024 01:17 PM Reporting Lab: [facility] [address] Performing Lab: [address] [address] VITAMIN D (25-OH) 25 ng/mL 20-50 May 11, 2024 07:47 AM [place] URINALYSIS URINE S pecimen Type: URINE Comment: If Glucose = >500 and Ketones are positive, please alert the Physician. Ordering Provider: KHUSHI TAPIA Report Released Date/Time: Jan 04, 2024 01:17 PM Reporting Lab: [address] [address] Performing Lab: [address] [address] UA COLOR Light-Yellow Yellow UA APPEARANCE Clear Clear UA GLUCOSE Normal mg/dL Negative UA KETONES NEGATIVE mg/dL Negative UA BLOOD NEGATIVE mg/dL Negative UA PROTEIN NEGATIVE mg/dL Negative UA NITRITE NEGATIVE mg/dL Negative UA BILIRUBIN NEGATIVE mg/dL Negative UA SPECIFIC GRAVITY 1.025 H 1.016-1.022 UA pH 6.0 5.0-9.0 UA UROBILINOGEN Normal mg/dL <2.0 UA LEUKOCYTE NEGATIVE Negative May 11, 2024 07:47 AM [place] LIVER FUNCTION SERUM Specimen Type: SERUM No comment entered. Ordering Provider: KHUSHI TAPIA Report Released Date/Time: Jan 04, 2024 01:17 PM Reporting Lab: [address] [address] Performing Lab: [address] [address] PROTEIN,TOTAL 7.4 g/dL 6.0-8.3 ALBUMIN 3.9 g/dL 3.5-5.0 ALKALINE PHOSPHATASE 54 U/L 40-150 AST 19 U/L 5-34 ALT 16 U/L BILIRUBIN, TOTAL 0.5 mg/dL 0.2-1.2 May 11, 2024 07:47 AM [place] LIPID PANEL FASTING SERUM Specimen Ty pe: SERUM No comment entered. Ordering Provider: KHUSHI TAPIA Report Released Date/Time: Jan 04, 2024 01:17 PM Reporting Lab: [address] [address] Performing Lab: [facility] [address] [facility] [address] CHOLESTEROL 229 mg/dL H TRIGLYCERIDE 137 mg/dL 0-150 LDL calculated 152 mg/dL H 0-129 CHOL/HDL 4.6 HDL CHOLESTEROL 50 mg/dL 40-60 May 11, 2024 07:47 AM [place] BASIC METABOLIC PANEL (fasting) SERUM Specimen Type: SERUM No comment entered. Ordering Provider: KHUSHI TAPIA Report Released Date/Time: Jan 04, 2024 01:17 PM Reporting Lab: [facility] [address] [facility] [address] Performing Lab: [address] [address] UREA NITROGEN 18 mg/dL 7-25 GLUCOSE 101 mg/dL H 65-100 SODIUM 137 mmol/L 135-145 POTASSIUM 4.4 mmol/L 3.5-5.0 CHLORIDE 105 mmol/L 100-110 CO2 22 meq/L 20-30 CALCIUM 8.9 mg/dL 8.5-10.2 CREATININE, Serum 0.79 mg/dL 0.50-1.40 eGFR(CKD-EPI 2020) >90 mL/min >60 May 11, 2024 07:47 AM [place] CALCIUM SERUM Sp ecimen Type: SERUM No comment entered. Ordering Provider: KHUSHI TAPIA Report Released Date/Time: Jan 04, 2024 01:17 PM Reporting Lab: [facility] [address] [facility] [address] Performing Lab: [address] [address] CALCIUM 8.9 mg/dL 8.5-10.2 May 11, 2024 07:47 AM [place] URIC ACID SERUM Sp ecimen Type: SERUM No comment entered. Ordering Provider: KHUSHI TAPIA Report Released Date/Time: Jan 04, 2024 01:17 PM Reporting Lab: [facility] [address] [facility] [address] Performing Lab: [address] [address] URIC ACID 7.4 mg/dL H 3.5-7.2 May 11, 2024 07:47 AM [place] CBC AND DIFF (AUTO) BLOOD Specimen Ty pe: BLOOD No comment entered. Ordering Provider: KHUSHI TAPIA Report Released Date/Time: Jan 04, 2024 01:17 PM Reporting Lab: [facility] [address] [facility] [address] Performing Lab: [facility] [address] [facility] [address] WBC 9.10 10*3/uL 4.50-11.00 RBC 5.28 10*6/uL [...] 10*3/uL 0.00-0.00 Apr 25, 2024 11:25 AM [facility] BASIC METABOLIC PANEL PLASMA Specimen Type: PL ASMA Comment: 1+ Hemolysis may falsely cause increased Potassium result 1+ Hemolysis may falsely cause elevated Chloride result 1+ Hemolysis may falsely cause decreased Creatinine result Ordering Provider: SKYLER OVALLES Report Released Date/Time: Apr 25, 2024 11:15 AM Reporting Lab: [place] [address] [place] [phone] Performing Lab: [place] [address] [place] [phone] UREA NITROGEN 10 mg/dL 6-22 CALCIUM 9.3 mg/dL 8.5-10.5 CREATININE, SERUM OR PLASMA 0.77 mg/dL 0 .60-1.30 GLUCOSE 96 mg/dL 70-100 SODIUM (SERUM/PLASMA) 139 mmol/L 134-145 POTASSIUM 4.8 mmol/L 3.6-5.2 CHLORIDE 106 mmol/L 100-111 CO2 24 mmol/L 21-29 EGFRCr >90 Apr 25, 2024 11:25 AM [facility] PSA, FREE & TOT SERUM Specimen Type: SERUM No comment entered. Ordering Provider: SKYLER OVALLES Report Released Date/Time: Apr 25, 2024 11:15 AM Reporting Lab: [place] [address] [place] [address] Performing Lab: [place] [address] [place] [address] PSA-TOT 9.59 ng/mL H 0.000-4.000 FREE PSA 2.029 ng/mL 0.100-30.000 PSA-PERCENT FREE 21.17 Apr 25, 2024 11:20 AM [facility] URINALYSIS URINE Specimen Type: URINE No comment entered. Ordering Provider: SKYLER OVALLES Report Released Date/Time: Apr 25, 2024 11:15 AM Reporting Lab: [place] [address] [place] [place] [phone] Performing Lab: [place] [address] [place] [phone] URINE COLOR Yellow -YELLOW-STRAW SPECIFIC GRAVITY 1.008 [...] Pain Height Weight Body Mass Index Source May 16, 2024 01:06 PM 97.9 63 127/72 94 136 24 [facility] IE Social History: Smoking Status (Most current) and Tobacco Use (All prior to encounter date) This section includes the most current, and the historical, smoking and tobacco- related health factors from the [place] facility where the Encounter took place. Current Smoking Status This section includes the most current smoking, or tobacco-related health factor, from the [place] facility where the Encounter took place. Date/Time Current Smoking Status Comment Facil ity Nov 10, 2023 10:30 AM MT-TOBACCO NEVER USED [place] Tobacco Use History This section includes a history of the smoking, or tobacco-related health factors, that were collected on or before the date of the Encounter. The data comes from the [place] facility where the Encounter took place. Date/Time Smoking Status/Tobacco Use Comment F acility Sep 20, 2022 01:00 PM [facility]-TOBACCO NEVER USED [place] Nov 12, 2020 10:00 AM VA-TOBACCO NEVER USED [place] Oct 18, 2019 01:30 PM VA-TOBACCO NEVER USED [place] Feb 03, 2018 09:51 AM VA-TOBACCO NEVER USED [place] Jul 21, 2017 11:14 AM LIFETIME NON-TOBACCO USER [place] June 29, 2016 08:58 AM LIFETIME NON-TOBACCO USER [place] Jan 21, 2015 03:25 PM LIFETIME NON-TOBACCO USER [place] Apr 22, 2004 02:00 PM LIFETIME NON-SMOKER [place] Advance Directives: All historical and current Section Date Range: From patient's date of to the date document was created. This section includes ALL of a patient's completed or amended [place] Advance and Rescinded Directives. The entries below indicate that a directive exists for the patient, but an actual copy is not included with this document. The data comes from all [place] facilities. Date Advance Directives Provider Source June [...] the Encounter. The data comes from all [place] treatment facilities. Date/Time Pathology Report Provider Source Apr 25, 2024 11:20 AM [place] MICROBIOLOGY RE PORT: Reporting Lab: [facility] [CLIA# [id number]] [address] [place] [address] Accession [UID]: [id number] [[id number]] Received: Apr 25, 2024@12:00 Collection sample: URINE (CLEAN CATCH) Collection date: Apr 25, 2024 11:20 Site/Specimen: URINE Provider: SKYLER OVALLES Test(s) ordered: URINE C&S (CLEAN CATCH)....... completed: Apr 26, 2024 08:32 * BACTERIOLOGY FINAL REPORT => Apr 26, 2024 08:32 TECH CODE: [id number] Bacteriology Remark(s): NO GROWTH =--=--=--=--=--=--=--=--=- -=--=--=--=--=--=--=--=--= --=--=--=--=--=--=--=--=-- Performing Laboratory: Bacteriology Report Performed By: [facility] [CLIA# [id number]] [address] [place] [address] ANSHUL JARAMILLO [facility] Encounter Notes: All associated encounter notes This section contains the clinical notes associated to the Encounter. Date/Time Encounter Note(s) Provider Source May 16, 2024 01:05 PM PHYSICIAN BRITTANY Wright NOTE: LOCAL TITLE: AYESHA NOTE STANDARD TITLE: PHYSICIAN MALT HOUSE SUPERVISOR NOTE DATE OF NOTE: MAY 16, 2024@13:05 ENTRY DATE: MAY 16, 2024@13:05:49 AUTHOR: KHUSHI TAPIA COSIGNER: URGENCY: STATUS: COMPLETED S - routine re-eval goes to [facility] for winter needs various consults re-typed re-submitted in order to continue care in [facility] O - CHART: reviewed EYES: anicteric OU NECK: no jvd no bruits LUNGS: resp full reg unlabored; CTA b/l COR: RRR, I hear no M today ABD: no distention EXT: no LLE LABS: reviewed w/ pt A/P - 1) CHF - cont Entresto - CON: Re-Submit to Cardio; Continue Care 2) DM II - A1C 5.9 and FBS 101 in Jun 01 - not that bad; he prefers to forgo med (s) such as Metofromin - foot, eye care - diet wt 3) Elevated PSA's - Do Fluctuate; is 7.24 in JUN 01 - CON: Submit Continuity Care Consult URO RTC JAN 01 - labs before Medication Reconciliation: Outpatient: Has the patient been taking medications as documented in the EMLR? YES: The patient has been taking medications as documented in the EMLR. Essential Medication List for Review used to complete this medication reconciliation. INCLUDED IN THIS LIST: Alphabetical list of active outpatient prescriptions dispensed from this [place] (local) and dispensed from another [place] or [facility] facility (remote) as well as inpatient orders [...] provider. /shea/ KHUSHI TAPIA PA-C STAFF PHYSICIAN M[employer]SE SUPERVISOR Signed: 05/16/2024 13:34 KHUSHI TAPIA
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
--- NOTE | 2024-10-02 13:20 | MHC.OFFVIS ---
Intake Visit Reasons: 2m/PVR/MRI Intake Note: Patient is present for follow up Urology Medication:NONE Antibiotic Allergy:NONE Blood Thinner:NONE Imaging done : 09/27/24 Labs done 09/29/24: PSA 9.15 PVR:38 MLS Colored Liquid Plastic Applier Required: No Accompanied by: Self / Same As Patient Allergies No Known Allergies (No Known Allergies*) Allergy (Verified 10/02/24 13:21) HPI Comments Details: Michel is a pleasant male. He is a patient of Dr. Monte. He is seen for follow urologic condition - prostate cancer - lower urinary tract symptoms PSA remaining high 10/01 9.1 Recent MRI shows a 60 g prostate with 12 mm lesion. May benefit from targeted biopsy or cryotherapy Discussed findings He is hesitant about intervention Recommend finasteride He will consider Prescription provided Continue six-month follow-up PSA Prostate cancer group 2 current therapy active surveillance Diagnosis in July 2014 Initial diagnosis Lacey 6 and 3+4=7 Initial therapy active surveillance - did not want to pursue aggressive intervention - finasteride PSA monitoring ranges from 5.8-8.2 PSA 06/27 6.05, 09/27 7.1 28%, 12/28 5.0 24%, 05/29 7.7 19%, 11/28 8.2 22%, 06/29 5.9 23%, 09/29 7.1, 08/01 7.6 Imaging - 12/29 MRI Showed 40 g prostate with PI-RADS 2. No clinically significant regions identified. Thickened bladder with prostatomegaly and bladder protrusion 10/01 60 g prostate Left posteromedial and posterolateral peripheral zone in the mid gland/apex measuring approximately 12 mm [facility] Medical History Prostate cancer Urinary frequency Review of Systems Const Denies chills and Denies fever(s) Card Reports no additional complaints and Denies syncope Resp Denies cough GI Denies abdominal pain and Denies heartburn Reports as per HPI and Denies change in libido Neuro Denies syncope Psych Denies change in libido Endo Denies change in libido Physical Exam Const General: cooperative, healthy appearing, comfortable and no acute distress Orientation/consciousness: patient oriented x3 HEENT Face and sinus: Yes normal facial exam Mouth: moist mucous membranes Neck Neck: Yes normal visual inspection, Yes full ROM and Yes trachea midline Chest Chest palpation & inspection: normal inspection of the chest Resp Effort & Inspection: normal respiratory effort, able to speak in complete sentences and no respiratory distress GI Inspection: Yes normal to inspection Back/Spine/Pelvis Cervical Spine: normal cervical lordosis Thoracic/Lumbar Spine: thoracic and lumbar spine normal to inspection Skin General skin exam: no rashes or lesions noted Neuro General: patient oriented x3, gait normal, tone normal and moves all extremities Extrem General: Yes normal to inspection and Yes capillary refill normal Office Procedures Post Void Residual Post Residual Void Post Void Residual (PVR): 38 [id number] Void Residual by ultrasound Results AMB Urinalysis, Automated UA Leukoctes 0 Manan/uL Last Edit by VAHID Orr on 10/02/24 13:42 UA Nitrite Negative Last Edit by VAHID Orr on 10/02/24 13:42 UA Urobilinogen 0.2 mg/dL Last Edit by Ivana Lizama CCM on 10/02/24 13:42 UA Protein 0 mg/dL Last Edit by VAHID Orr on 10/02/24 13:42 UA pH 6.0 Last Edit by Ivana Lizama CCM on 10/02/24 13:42 UA Blood 0 Jonathon/uL Last Edit by VAHID Orr on 10/02/24 13:42 UA Specific [place] 1.020 Last Edit by VAHID Orr on 10/02/24 13:42 UA Ketone Negative Last Edit by VAHID Orr on 10/02/24 13:42 UA Bilirubin 0 mg/dL Last Edit by VAHID Orr on 10/02/24 13:42 UA Glucose 0 mg/dL Last Edit by Ivana Lizama CCM on 10/02/24 13:42 Results Reviewed Results Reviewed: Laboratory Last Values Urine pH (Auto) 6.0 10/02/24 13:41 Specific [place] (Auto) 1.020 10/02/24 13:41 Urine Protein (Auto) 0 mg/dL 10/02/24 13:41 Glucose (UA)(Auto) 0 mg/dL 10/02/24 13:41 Urine Ketones (Auto) Negative 10/02/24 13:41 Urine Blood (Auto) 0 Jonathon/uL 10/02/24 13:41 Urine Nitrite (Auto) Negative 10/02/24 13:41 Urine Bilirubin (Auto) 0 mg/dL 10/02/24 13:41 Urine Urobilinogen (Auto) 0.2 mg/dL 10/02/24 13:41 Leukocyte Esterase (Auto) 0 Manan/uL 10/02/24 13:41 Assessment & Plan Assessment & Plan (1) Prostate cancer: Comment: May 2014 - Gl 3 + 3, Gl 3 + 4 Therapy active surveillance Code(s): C61 - Malignant neoplasm of prostate Category: Medical Plan Six-month follow-up PSA Orders: Orders PSA,Total (Free>4and<10) 6 Months C61 - Malignant neoplasm of prostate AMB Post Void Residual by ultrasound Today N13.8 - Other obstructive and reflux uropathy, N40.1 - Benign prostatic hyperplasia with lower urinary tract symptoms AMB Urinalysis Automated Today Z13.9 - Encounter for screening, unspecified Medications: New finasteride 5 mg PO DAILY 90 tabs 1RF 90 days C61 - Malignant neoplasm of prostate Patient Instructions: This note is constructed using voice recognition software. While every effort has been made to ensure accuracy consultative sales associate errors may have been included. Imaging studies, laboratory and physical exam results were discussed and reviewed in detail. No major barriers to patient understanding were identified. An opportunity to ask questions regarding the treatment plan was provided. All questions were answered. The patient expressed understanding and agreement with the above treatment plan. The patient is aware they should contact our office by phone for worsening of their current condition or the appearance of new urologic symptoms. Compliance is encouraged with any medications and followup testing that is ordered. It is a privilege to participate in the urologic care of your patient. If you have any questions or concerns regarding treatment for the above conditions, or other urologic issues, please do not hesitate to contact me. The office telephone contact is [phone]. Sincerely, Dr Chas Rogel MD, [facility] - Urology Compassionate Specialist Care for the Genitourinary System Coding Level of Care Code Est Pt Level 4 (28988) Complex EM visit Add On G2211 Diagnoses Prostate cancer C61 CPT Codes Post Residual Void - PVR CPT Code: 97445-[id number] Void Residual by ultrasound ([id number])
--- OUTSIDE RECORDS SUMMARY | 2024-10-02 14:07 | XMS_ITS | Continuity of Care Document ---
Author Name [employer] Organization [employer] Care Team Providers Care Javascript Web Developer Name Role Phone [employer] Unavailable Unavailable Problems Combined list of problems from Department of Defense and Veterans Affairs facilities. It does not include entries that were removed or entered in error. Problem Status Onset Date Problem Type Date of Resolution Comments Source Hypercholesterolemia (SNOMED CT 01846955) Active 005 Condition Sep 20, 2005 Entered By: KHUSHI TAPIA Comment: declines meds [place] ACCRETIONS ON TEETH Active Condition [facility] [place] [facility] Anxiety * (ICD-9-CM 300.00/300.09) [facility] Active Condition Sep 20, 2005 Entered By: KHUSHI TAPIA Comment: done at [facility] in (had Peritonitis) [place] Backache Active Condition Sep 29 Entered By: KHUSHI TAPIA Comment: Chronic Thoracic Back Pain (since ) [place] bilateral hernia repair Active Condition [facility] [place] [facility] Carcinoma of prostate Active Condition Jul 17, 2014 Entered By: KHUSHI TAPIA Comment: Bx, JULY 22 via [facility] of [place]: +AdenocarcinomaJ 2014 Entered By: KHUSHI TAPIA Comment: pending Tot Prostatectomy as of SEP 21 (did it happen?)Dec 11, 2014 Entered By: KHUSHI TAPIA Comment: Last Seen [facility] Grp [facility] Eng Nov 15:Dec 11, 2014 Entered By: KHUSHI TAPIA Comment: Cont. to Monitor PSA; Repeat Prostate Bx July Entered By: KHUSHI TAPIA Comment: [place] 7 (3+4); Bx Neg CA, L Lobe; +CA, R LobeMa2015 Entered By: KHUSHI TAPIA Comment: pending US-Guided Bx Prostate via [facility] Grp [facility] [place] Eng[place]2015 Entered By: KHUSHI TAPIA Comment: on June Entered By: KHUSHI TAPIA Comment: (another) Bx, Prostate: CA Remissing or Not AdvancingJun 2019 Entered By: KHUSHI TAPIA Comment: Last Saw URO JUNE 26: Stable ; PSA 5.08; f/u URO SEP 26Jun 2020 Entered By: KHUSHI TAPIA Comment: Last Saw URO JUNE 27: Stable ; PSA only 7; Still Watch, Wait Dec 22, 2021 Entered By: KHUSHI TAPIA Comment: May Get f/u URO Appt. Latter DEC 29De2021 Entered By: KHUSHI TAPIA Comment: MRI, Pelvis (ordered by URO) DEC 29:Jan 11, 2022 Entered By: KHUSHI TAPIA Comment: + (known) Prostatomegaly w/ Bladder Base Indentation;Jan 11, 2022 Entered By: KHUSHI TAPIA Comment: Bladder CA or Prostate CA not Mentioned; There Are Features of BPHDec 2021 Entered By: KHUSHI TAPIA Comment: in Transitional Zone [place] Chronic post-traumatic stress disorder (SNOMED CT 235821847) Active Condition [facility] [place] Congestive heart failure Active Condition Dec 22, 2021 Entered By: KHUSHI TAPIA Comment: Sees Cardio at [facility]; Next Appt. DEC 29;Dec 22, 2021 Entered By: KHUSHI TAPIA Comment: Now on Just Entresto; B-Blkr and Torsemide Stopped (according to pt.)Dec 22, 2021 Entered By: KHUSHI TAPIA Comment: Only on EntrestoNov 2021 Entered By: KHUSHI TAPIA Comment: Could Resume Torsemide if Wt. Goes Up 3 Lbs or so at HomeApr 2022 Entered By: KHUSHI TAPIA Comment: Next Cardio Appt in AUGUST 29Apr 2022 Entered By: KHUSHI TAPIA Comment: Cardiac MRI was Sought; Not Done Due to Schrapnel Behind HeartAug 2022 Entered By: KHUSHI TAPIA Comment: Last Saw Cardio AUGUST 29: Stable Non-Ischemic Cardiomyopathy;A ug 2022 Entered By: KHUSHI TAPIA Comment: EF 25-35%; Moderate AVS, Moderate MR, Moderte TR, Moderate ReducedAug 2022 Entered By: KHUSHI TAPIA Comment: RV Systol Function; Remain on EntrestoNov 2023 Entered By: KHUSHI TAPIA Comment: A Cardiac Cath was Neg for Occlusive DiseaseNov 2023 Entered By: KHUSHI TAPIA Comment: Next Cardio Appt Happening JULY 01Apr 2024 Entered By: KHUSHI TAPIA Comment: Re-Type Continuity Care Consult in JUN 01 for Next Cardio Re-Eval [place] Constipation Active Condition May 16, 2024 Entered By: KHUSHI TAPIA Comment: Underwent Diagnost Colonoscopy in [facility] winter;May 16, 2024 Entered By: KHUSHI TAPIA Comment: Done Due to Inability to Move Bowels; Neg CRC; +Int HemorrhoidsMay 16, 2024 Entered By: KHUSHI TAPIA Comment: Constipation Itself Resolved as of JUN 01 [place] Contact dermatitis and other eczema due to plants (except food) (ICD-9-CM 692.6) Active Condition [facility] 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 Condition May 01, 2007 Entered By: LOREE HARDY OD Comment: left eye [facility] Diabetes mellitus Active Condition Se 2015 Entered By: KHUSHI TAPIA Comment: A1C's of 6.5 in 2014 and 2015;Oct 31, 2015 Entered By: KHUSHI TAPIA Comment: Chooses Non-Pharm Measures First [place] Diplopia Active Condition Jan 03 Entered By: KHUSHI TAPIA Comment: Saw Ophth in NOV 30; No Ocular Disease Reported [place] Disorder of sleep-wake cycle Active Condition Dec 24, 2013 Entered By: KHUSHI TAPIA Comment: Sleep Study [facility] 2012; not Obstructive: Hyposomnia Dec 24, 2013 Entered By: KHUSHI TAPIA Comment: Tx: Generic Sleep Hygiene (prob. [place]-Related) Jan 16, 2014 Entered By: KHUSHI TAPIA Comment: see Sleep Study Note Dated AUGUST 20 [facility]; no RUTH R[facility]OD Elbow Active Condition Apr 04 Entered By: KHUSHI TAPIA Comment: Med Epicondylitis, R Side & Sublux , Ulnar Nerve B/LFeb 2007 Entered By: KHUSHI TAPIA Comment: sees [facility] Essential hypertension Active Condition May 05, 2012 Entered By: KHUSHI TAPIA Comment: PAUL causes tickle throat - Change to ARB in Apr Entered By: KHUSHI TAPIA Comment: he stopped ARB (why?); start CCB in Dec Entered By: KHUSHI TAPIA Comment: EKG, DEC 21: +LVH; no IschemiaApr 2014 Entered By: KHUSHI TAPIA Comment: see Cardio note dt MAY 22Apr 2014 Entered By: KHUSHI TAPIA Comment: US, Carotids MAY 22: No Signif StenosisApr 2014 Entered By: KHUSHI TAPIA Comment: US, Aorta MAY 22: Neg AAAMay 2014 Entered By: KHUSHI TAPIA Comment: ECHO at [facility] 2014; +AI & LVH Secondary HTNJun 2016 Entered By: KHUSHI TAPIA Comment: Nucle Stres Test [facility] OCT 15: EF 51%; LVH (resting htn);Jul 16, 2016 Entered By: KHUSHI TAPIA Comment: NL Card Perfusion; Moderate Coronary Artery CalcificationNov 2016 Entered By: KHUSHI TAPIA Comment: US, Carotids DEC 24: no Signif StenosisSep 2021 Entered By: KHUSHI TAPIA Comment: Next Cardio Appt [facility] Nov Entered By: KHUSHI TAPIA Comment: repeat US of Carotids/Verteb Arteries in DEC 2023;Dec 05, 2023 Entered By: KHUSHI TAPIA Comment: +Evidence of Atherosclerotic Changes Basilar and ICA's per Brain CT NOV 30Nov 2023 Entered By: KHUSHI TAPIA Comment: US, Carotids DEC 31; No Signif Stenosis [facility] GERD Active Condition Apr 22 Entered By: JOSEFINA CORDERO Comment: emotional problems on omeprazole.Apr 22, 2004 Entered By: JOSEFINA CORDERO Comment: H Pylori eradication done. [facility] Heart murmur Active Condition Dec 13, 2016 Entered By: KHUSHI TAPIA Comment: Report of Hx for a M; Barely Audible, If At AllApr 2018 Entered By: KHUSHI TAPIA Comment: See Cardio Note Dated MAY 26;May 30, 2018 Entered By: KHUSHI TAPIA Comment: pending ECHO in Fall 2018Jun 2020 Entered By: KHUSHI TAPIA Comment: AVS Worse in JULY 28: M is Louder; More [place];Jul 16, 2020 Entered By: KHUSHI TAPIA Comment: Get New ECHO and Refer to Cardio at [facility] in JULY 28Jul 2020 Entered By: KHUSHI TAPIA Comment: Sen ED at [facility] JULY 28: New Dx CHF and Worsening AVSJul 2020 Entered By: KHUSHI TAPIA Comment: Small Infarct? (elevated Troponin)Aug 20, 2020 Entered By: KHUSHI TAPIA Comment: f/u w/ Cardio @ [facility] SEP 27;Sep 22, 2020 Entered By: KHUSHI TAPIA Comment: SEE NON [facility] CARDIO NOTE DATED SEP 27 [facility] Hypercholesterolemia Active Condition [facility] [place] Hypertrophy (Benign) of Prostate without Urinary obstruction and other lower Uri Active Condition Oct 30, 2010 Entered By: KHUSHI TAPIA Comment: saw private URO OCT 18; Dr. Fleming [facility] Grp W NEWSep 2010 Entered By: KHUSHI TAPIA Comment: [phone] 2014 Entered By: KHUSHI TAPIA Comment: Cysto JUNE 18 at [facility] Grp W [place]: +Bladder Outlet ObstructMay 2014 Entered By: KHUSHI TAPIA Comment: pending Bx, Prostate JULY 22 (Rise of PSA) [facility] Irritable Bowel Syndrome Active Condition Feb 24, 2010 Entered By: KHUSHI TAPIA Comment: Dx not for sure; does have intermittent bloating andJan 2010 Entered By: KHUSHI TAPIA Comment: constipation & loose stool (never blood or mucus stool)June 11, 2014 Entered By: KHUSHI TAPIA Comment: See GI Note Dated JUNE 21 (Colonoscopy not Needed Now) [place] Knee Active Condition Aug 26 Entered By: KHUSHI TAPIA Comment: Post-Medial Meniscectomy OA w/ RPPS, R knee [place] 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, 2007 Entered By: LOREE HARDY OD Comment: left eye [facility] Lightheadedness Active Condition Nov 26, 2008 Entered By: KHUSHI TAPIA Comment: Intermittent Light-Headedness Nov 26, 2008 Entered By: KHUSHI TAPIA Comment: US, Carotids, NOV 15: No Signif StenosisDec 13, 2016 Entered By: KHUSHI TAPIA Comment: Lightheadedness , of sorts, in ; One-Time GALLEGOS as Well;Dec 13, 2016 Entered By: KHUSHI TAPIA Comment: Repeat US of Carotids and Get CT Brain in Dec Entered By: KHUSHI TAPIA Comment: CT, Brain DEC 24: No Mass, Bleed, [place] Microscopic Hematuria Active Condition Dec 22, 2007 Entered By: KHUSHI TAPIA Comment: CT, ABD, DEC 15: +Diverticulosis; No Acute ProcessesDec 22, 2007 Entered By: KHUSHI TAPIA Comment: Declined Cysto in 2007 - saw URO thenApr 2010 Entered By: KHUSHI TAPIA Comment: saw private URO MAR 11: 2+ Enlarged Prostate; Watch, Wait [place] Multiple nodules of lung Active Condition Jul 17, 2020 Entered By: KHUSHI TAPIA Comment: CT, Thorax JULY 28: +Lung Nodules, LLL (CT done due to SOB)Jul 30, 2020 Entered By: KHUSHI TAPIA Comment: repeat Survil CT Jan Entered By: KHUSHI TAPIA Comment: also, AAA 4.4 CM; +Coronary Calcifications [place] OBSTRUCTIVE SLEEP APNEA Active Condition [facility] 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, Partial Active Condition [facility] Osteoarthritis Active Condition Sep 072009 Entered By: KHUSHI TAPIA Comment: X-Ray, C-Spine SEP 16: +DJD C5-C6, C6-C7Nov 23, 2012 Entered By: KHUSHI TAPIA Comment: X-Ray both Knees NOV 19: +OA & Jt Space Narrow [place] Osteoarthritis of knee Active Condition [place] Prostate cancer Active Condition [facility] Refractive error (ICD-9-CM 367.9) Active Condition [facility] Retinal Hole Active Condition Aug 30, 2002 Entered By: LOREE HARDY OD Comment: right eye [facility] screening malignant neoplsm colon Active Condition June 15, 2005 Entered By: KHUSHI TAPIA Comment: Colonoscopy 2004 - Neg CRC; FH Positive CRC (father)Sep 20, 2005 Entered By: KHUSHI TAPIA Comment: Last Colonoscopy 2009: Neg CRC or PolyposisMar 08, 2012 Entered By: KHUSHI TAPIA Comment: [facility] Colonoscopy MAY 18: Neg CRC (no Polyps, Diverticul)Mar 08, 2012 Entered By: KHUSHI TAPIA Comment: repeat 2014 Entered By: KHUSHI TAPIA Comment: Rectal Pain in 2014 Attributed to Prostate, not RectumAug 2017 Entered By: KHUSHI TAPIA Comment: New Consult Done SEP 24 R[place] 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, 2005 Entered By: KHUSHI TAPIA Comment: removed 1968 [place] [facility] [facility] Vitamin B12 deficiency Active Condition [facility] Vitamin D deficiency Active Condition [facility] Diagnosis: ICD-10-CM M25.541 Pain in joints of right hand Active Diagnosis [facility] Diagnosis: ICD-10-CM Z71.9 Counseling, unspecified Active Diagnosis [facility] Diagnosis: ICD-10-CM I50.9 Heart failure, unspecified Active Diagnosis [facility] Diagnosis: ICD-10-CM C61 Malignant neoplasm of prostate Active Diagnosis [facility] Diagnosis: ICD-10-CM R19.4 Change in bowel habit Active Diagnosis [facility] Diagnosis: ICD-10-CM Z86.0100 Personal history of colon polyps, unspecified Active Diagnosis [facility] Diagnosis: ICD-10-CM Z12.11 Encounter for screening for malignant neoplasm of colon Active Diagnosis [facility] Diagnosis: ICD-10-CM Z01.818 Encounter for other preprocedural examination Active Diagnosis [facility] Diagnosis: ICD-10-CM H53.2 Diplopia Active Diagnosis [facility] Diagnosis: ICD-10-CM R60.9 Edema, unspecified Active Diagnosis [facility] Diagnosis: ICD-10-CM H90.3 Sensorineural hearing loss, bilateral Active Diagnosis [facility] [place] [facility] Diagnosis: ICD-10-CM E11.65 Type 2 diabetes mellitus with hyperglycemia Active Diagnosis [facility] Medications Combined list of outpatient medications from Department of Defense and Veterans Affairs facilities.Medications provided include 1) outpatient medications from the last 15 months, and 2) patient-reported medications. Medication Details Route Status Patient Instructions Prescription Expires Prescription Number Last Dispense Date Ordering Provider Order Date Order Qty Source ASPIRIN 81MG TAB,EC TAKE ONE TABLET BY MOUTH ONCE DAILY ORAL ACTIVE ALEXIS TAPIA [address] [facility] IELD BISACODYL 5MG TAB,EC TAKE THREE TABLETS BY MOUTH ONCE COLONOSC OPY PREP TAKE DIRECTED BY GI CLINIC STAFF ORAL 04/11/2024 [id number] [place] RANDOLPH APRN-ELMER 2024 3 [facility] BISOPROLOL TAB TAKE BY MOUTH TWICE DAILY ORAL ACTIVE ALEXIS TAPAI [address] [facility] IELD MAGNESIUM CITRATE LIQUID,ORAL TAKE CONTENTS OF 1 BOTTLE BY MOUTH DIRECTED FOR EMPTYING OF THE BOWEL TAKE DIRECTED BY GI CLINIC STAFF ORAL 04/11/2024 [id number] [place] RANDOLPH CELLULOSE INSULATION HELPER- 2024 1 [facility] METFORMIN HCL 500MG 24HR TAB,SA TAKE ONE TABLET BY MOUTH ONCE DAILY FOR TYPE 2 DIABETES MELLITUS ORAL DISCONT INUED BY LAKEISHA R 01/04/2025 [id number] 4 ALEXIS TAPIA 2023 90 [place] PEG-3350/EL ECTROLYTES PWDR TAKE POWDER DIRECTED ONCE FOR COLONOSC OPY PREP PER GI CLINIC TAKE DIRECTED BY GI CLINIC STAFF DIRECT ED 04/11/2024 [id number] 5 [place] RANDOLPH CELLULOSE INSULATION HELPER- 2024 1 [facility] PREDNISONE 20MG TAB TAKE ONE TABLET BY MOUTH EVERY MORNING FOR RHEUMATO ID ARTHRITI S ORAL 07/07/2024 [id number] 5 Juan BAXTER 2024 5 [place] PSYLLIUM PWDR,ORAL MIX 3 TEASPOON FULS IN 8OZ LIQUID DAILY FOR CONSTIPA TION ORAL ACTIVE 03/09/2025 [id number] 5 [place] RANDOLPH CELLULOSE INSULATION HELPER- 2024 1170 [facility] SACUBITRIL 24MG/VALSAR ESCOBAR 26MG TAB TAKE 1 TABLET BY MOUTH TWICE DAILY FOR CHRONIC HEART FAILURE NEW LOWER DOSE ORAL 09/06/2024 [id number] 4 ALEXIS TAPIA 2023 180 [place] SACUBITRIL 49MG/VALSAR ESCOBAR 51MG TAB TAKE 1 TABLET BY MOUTH TWICE DAILY ORAL SUSPEND ED 05/17/2025 [id number] 5 ALEXIS TAPIA 2024 180 [place] SACUBITRIL 49MG/VALSAR ESCOBAR 51MG TAB TAKE 1 TABLET BY MOUTH TWICE DAILY ORAL DISCONT INUED 12/14/2024 [id number] OBI MALDONADO 2023 180 [place] SACUBITRIL 49MG/VALSAR ESCOBAR 51MG TAB TAKE 1 TABLET BY MOUTH TWICE DAILY ORAL DISCONT INUED (EDIT) 08/03/2024 [id number] 4 ALEXIS TAPIA [address] [facility] IELD SACUBITRIL 49MG/VALSAR ESCOBAR 51MG TAB TAKE 1 TABLET BY MOUTH TWICE DAILY ORAL DISCONT INUED 01/08/2024 [id number] 4 GILDARDO BAUM 2022 [address] [facility] IELD SACUBITRIL/ VALSARTAN 49-51 MG ORAL TAB TAKE 1 TABLET BY MOUTH TWICE DAILY 08/03/2024 [id number] KHUSHI TAPIA 2023 180 [facility] SACUBITRIL/ VALSARTAN 49-51 MG ORAL TAB TAKE 1 TABLET BY MOUTH TWICE DAILY Discont inued 01/08/2024 [id number] 4 YG BAUM 2023 180 [facility] TAMSULOSIN HCL 0.4MG CAP TAKE ONE CAPSULE BY MOUTH AT BEDTIME ORAL ACTIVE 11/05/2024 [id number] 5 KENTON FONSECA MD 2024 90 [facility] [place] [facility] Allergies, Adverse Reactions, Alerts Combined list of allergies from Department of Defense and Veterans Affairs facilities. It does not include entries that were removed or entered in error. Substance Category Reaction Severity Reaction type Status Date Reported Comments Source LISINOPRIL Propensity to adverse reactions to drug (finding) Cough active 5 [facility] [place] [facility] No Known Allergies Drug allergy (disorder) active 5 [facility] Immunizations Combined list of available immunizations from the Department of Defense and Veterans Affairs facilities. Immunization Series Date Given Administered By Site Reaction Lot Number CVX Code Drug Musical String Maker Status Comments Source COVID-19 (MODERNA), MRNA, LNP-S, PF, 100 MCG/0.5 ML DOSE 2 2020 207 complet ed MOD; [id number]; 1 [facility] COVID-19 (MODERNA), MRNA, LNP-S, PF, 100 MCG/0.5 ML DOSE 1 2020 207 complet ed MOD; [id number]; 1 [facility] PNEUMOCOCCAL POLYSACCHARID E PPV23 2019 33 complet ed [place] FLU,3 YRS (HISTORICAL) 2002 [place] 88 complet ed [place] (CB) Results Combined list of recent chemistry, hematology and other laboratory results from Department of Defense and Veterans Affairs, ranging from 15 months to all on record, depending upon the facility. Order Name Results Value Reference Range Date Interpretation Specimen Comments Source HEMOGLOB IN A1C PANEL HEMOGLOBIN A1C/HEMOGL OBIN.TOTAL IN BLOOD BY [facility] PROTOCOL 5.9 4.0 - 5.6 05/11 H Specimen Type: BLOOD Comment: Values obtained from A1C measurement s can vary. For atypical A1C assays, a reported value of 7.0 could actually be between 6.72 and 7.28 if measured by a reference method. A reported value of 9.0 could actually be between 8.73 and 9.27. Ref: http://www. ngsp.org/CA Pdata.asp Ordering Provider: KHUSHI TAPIA Report Released Date/Time: Jan 04, 2024 01:17 PM Reporting Lab: [address] [address] Performing Lab: [address] [address] [place] VITAMIN B12 COBALAMIN (VITAMIN B12) [MASS/VOLU ME] IN SERUM OR PLASMA 423 pg/mL 200 - 900 05/11 Specimen Type: SERUM No comment entered. Ordering Provider: KHUSHI TAPIA Report Released Date/Time: Jan 04, 2024 01:17 PM Reporting Lab: [facility] [employer] [address] Performing Lab: [address] [address] [place] TSH THYROTROPI N [UNITS/VOL UME] IN SERUM OR PLASMA BY DETECTION LIMIT <= 0.005 MIU/L 4.20 u[IU]/mL 0.35 - 5.00 05/11 Specimen Type: SERUM No comment entered. Ordering Provider: KHUSHI TAPIA Report Released Date/Time: Jan 04, 2024 01:17 PM Reporting Lab: [facility] [address] [address] Performing Lab: [facility] [address] [address] [place] PSA PROSTATE SPECIFIC AG [MASS/VOLU ME] IN SERUM OR PLASMA BY IMMUNOASSA Y 7.24 ng/mL 0.00 - 4.00 05/11 H Specimen Type: SERUM No comment entered. Ordering Provider: KHUSHI TAPIA Report Released Date/Time: Jan 04, 2024 01:17 PM Reporting Lab: [facility] TRN [address] [address] Performing Lab: [facility]ERYTRN [address] [address] [place] MICROALB UMIN CREATINI NE RATIO PANEL MICROALBUM IN/CREATIN INE [MASS RATIO] IN URINE 25.2 mg/g 0 - 29.9 05/11 Specimen Type: URINE No comment entered. Ordering Provider: KHUSHI TAPIA Report Released Date/Time: Jan 04, 2024 01:17 PM Reporting Lab: [facility] [address] [address] Performing Lab: [facility] TRN [facility] [address] [address] [place] MICROALB UMIN CREATINI NE RATIO PANEL MICROALBUM IN [MASS/VOLU ME] IN URINE BY DETECTION LIMIT <= 1.0 MG/L 3.5 mg/dL 05/11 Specimen Type: URINE No comment entered. Ordering Provider: KHUSHI TAPIA Report Released Date/Time: Jan 04, 2024 01:17 PM Reporting Lab: [facility] [address] [address] Performing Lab: [facility] TRN [facility]ENTERUSE[address] [address] [place] MICROALB UMIN CREATINI NE RATIO PANEL CREATININE [MASS/VOLU ME] IN URINE 138.81 mg/dL 05/11 Specimen Type: URINE No comment entered. Ordering Provider: KHUSHI TAPIA Report Released Date/Time: Jan 04, 2024 01:17 PM Reporting Lab: [address] [address] Performing Lab: [address] [address] [place] VITAMIN D (25-OH) 25-HYDROXY VITAMIN D3+25-HYDR OXYVITAMIN D2 [MASS/VOLU ME] IN SERUM OR PLASMA 25 ng/mL 20 - 50 05/11 Specimen Type: SERUM No comment entered. Ordering Provider: KHUSHI TAPIA Report Released Date/Time: Jan 04, 2024 01:17 PM Reporting Lab: [address] [address] Performing Lab: [address] [address] [place] URINALYS IS COLOR OF URINE Light-Ye llow 05/11 Specimen Type: URINE Comment: If Glucose = >500 and Ketones are positive, please alert the Physician. Ordering Provider: KHUSHI TAPIA Report Released Date/Time: Jan 04, 2024 01:17 PM Reporting Lab: [address] [address] Performing Lab: [address] [address] [place] URINALYS IS APPEARANCE OF URINE Clear 05/11 Specimen Type: URINE Comment: If Glucose = >500 and Ketones are positive, please alert the Physician. Ordering Provider: KHUSHI TAPIA Report Released Date/Time: Jan 04, 2024 01:17 PM Reporting Lab: [address] [address] Performing Lab: [address] [address] [place] URINALYS IS GLUCOSE [MASS/VOLU ME] IN URINE Normalmg /dL 05/11 Specimen Type: URINE Comment: If Glucose = >500 and Ketones are positive, please alert the Physician. Ordering Provider: KHUSHI TAPIA Report Released Date/Time: Jan 04, 2024 01:17 PM Reporting Lab: [facility]REN[facility] MON[facility]OMERYTRN [address] [address] Performing Lab: [facility]ITALRVETER[facility] CENTERUSE[address] [address] [place] URINALYS IS KETONES [MASS/VOLU ME] IN URINE BY TEST STRIP NEGATIVE mg/dL 05/11 Specimen Type: URINE Comment: If Glucose = >500 and Ketones are positive, please alert the Physician. Ordering Provider: KHUSHI TAPIA Report Released Date/Time: Jan 04, 2024 01:17 PM Reporting Lab: [facility]ITALRVETER[facility] [address] [address] Performing Lab: [facility] [address] [address] [place] URINALYS IS ERYTHROCYT ES [PRESENCE] IN URINE SEDIMENT BY LIGHT MICROSCOPY NEGATIVE mg/dL 05/11 Specimen Type: URINE Comment: If Glucose = >500 and Ketones are positive, please alert the Physician. Ordering Provider: KHUSHI TAPIA Report Released Date/Time: Jan 04, 2024 01:17 PM Reporting Lab: [facility] [address] [address] Performing Lab: [facility] [address] [address] [place] URINALYS IS PROTEIN [MASS/VOLU ME] IN URINE BY TEST STRIP NEGATIVE mg/dL 05/11 Specimen Type: URINE Comment: If Glucose = >500 and Ketones are positive, please alert the Physician. Ordering Provider: KHUSHI TAPIA Report Released Date/Time: Jan 04, 2024 01:17 PM Reporting Lab: [facility]ITALRENCOM[facility] MONTGOMERYTRN [facility]ENTERUSE[address] [address] Performing Lab: [facility] [address] [address] [place] URINALYS IS NITRITE [PRESENCE] IN URINE NEGATIVE mg/dL 05/11 Specimen Type: URINE Comment: If Glucose = >500 and Ketones are positive, please alert the Physician. Ordering Provider: KHUSHI TAPIA Report Released Date/Time: Jan 04, 2024 01:17 PM Reporting Lab: [address] [address] Performing Lab: [address] [address] [place] URINALYS IS BILIRUBIN. TOTAL [PRESENCE] IN URINE NEGATIVE mg/dL 05/11 Specimen Type: URINE Comment: If Glucose = >500 and Ketones are positive, please alert the Physician. Ordering Provider: KHUSHI TAPIA Report Released Date/Time: Jan 04, 2024 01:17 PM Reporting Lab: [address] [address] Performing Lab: [address] [address] [place] URINALYS IS SPECIFIC GRAVITY OF URINE BY REFRACTOME TRY 1.025 1.016 - 1.022 05/11 H Specimen Type: URINE Comment: If Glucose = >500 and Ketones are positive, please alert the Physician. Ordering Provider: KHUSHI TAPIA Report Released Date/Time: Jan 04, 2024 01:17 PM Reporting Lab: [address] [address] Performing Lab: [address] [address] [place] URINALYS IS PH OF URINE BY TEST STRIP 6.0 5.0 - 9.0 05/11 Specimen Type: URINE Comment: If Glucose = >500 and Ketones are positive, please alert the Physician. Ordering Provider: KHUSHI TAPIA Report Released Date/Time: Jan 04, 2024 01:17 PM Reporting Lab: [address] [address] Performing Lab: [address] [address] [place] URINALYS IS UROBILINOG EN [MASS/VOLU ME] IN URINE BY TEST STRIP Normalmg /dL <2.0 - 2.0 05/11 Specimen Type: URINE Comment: If Glucose = >500 and Ketones are positive, please alert the Physician. Ordering Provider: KHUSHI TAPIA Report Released Date/Time: Jan 04, 2024 01:17 PM Reporting [facility]: [facility] [address] [address] Performing Lab: [facility] [address] [address] [place] URINAL[place] IS LEUKOCYTE ESTERASE [PRESENCE] IN URINE BY TEST STRIP NEGATIVE 05/11 Specimen Type: URINE Comment: If Glucose = >500 and Ketones are positive, please alert the Physician. Ordering Provider: KHUSHI TAPIA Report Released Date/Time: Jan 04, 2024 01:17 PM Reporting Lab: [address] [address] Performing Lab: [address] [address] [place] LIVER FUNCTION PROTEIN [MASS/VOLU ME] IN SERUM OR PLASMA 7.4 g/dL 6.0 - 8.3 05/11 Specimen Type: SERUM No comment entered. Ordering Provider: KHUSHI TAPIA Report Released Date/Time: Jan 04, 2024 01:17 PM Reporting Lab: [address] [address] Performing Lab: [facility] [address] [address] [place] LIVER FUNCTION ALBUMIN [MASS/VOLU ME] IN SERUM OR PLASMA BY BROMOCRESO L PURPLE (BCP) DYE BINDING METHOD 3.9 g/dL 3.5 - 5.0 05/11 Specimen Type: SERUM No comment entered. Ordering Provider: KHUSHI TAPIA Report Released Date/Time: Jan 04, 2024 01:17 PM Reporting Lab: [facility] [address] [address] Performing Lab: [facility] [address] [address] [place] LIVER FUNCTION ALKALINE PHOSPHATAS E [ENZYMATIC ACTIVITY/V OLUME] IN SERUM OR PLASMA 54 U/L 40 - 150 05/11 Specimen Type: SERUM No comment entered. Ordering Provider: KHUSHI TAPIA Report Released Date/Time: Jan 04, 2024 01:17 PM Reporting Lab: [address] [address] Performing Lab: [address] [address] [facility] LIVER FUNCTION ASPARTATE AMINOTRANS FERASE [ENZYMATIC ACTIVITY/V OLUME] IN SERUM OR PLASMA BY WITH P-5'-P 19 U/L 5 - 34 05/11 Specimen Type: SERUM No comment entered. Ordering Provider: KHUSHI TAPIA Report Released Date/Time: Jan 04, 2024 01:17 PM Reporting Lab: [address] [address] Performing Lab: [address] [address] [facility] LIVER FUNCTION ALANINE AMINOTRANS FERASE [ENZYMATIC ACTIVITY/V OLUME] IN SERUM OR PLASMA BY WITH P-5'-P 16 U/L 05/11 Specimen Type: SERUM No comment entered. Ordering Provider: KHUSHI TAPIA Report Released Date/Time: Jan 04, 2024 01:17 PM Reporting Lab: [address] [address] Performing Lab: [address] [address] [facility] LIVER FUNCTION BILIRUBIN. TOTAL [MASS/VOLU ME] IN SERUM OR PLASMA 0.5 mg/dL 0.2 - 1.2 05/11 Specimen Type: SERUM No comment entered. Ordering Provider: KHUSHI TAPIA Report Released Date/Time: Jan 04, 2024 01:17 PM Reporting Lab: [address] [address] Performing Lab: [address] [address] [place] LIPID PANEL FASTING CHOLESTERO L [MASS/VOLU ME] IN SERUM OR PLASMA 229 mg/dL 05/11 H Specimen Type: SERUM No comment entered. Ordering Provider: KHUSHI TAPIA Report Released Date/Time: Jan 04, 2024 01:17 PM Reporting Lab: [facility] [address] [address] Performing Lab: [facility] [address] [address] [place] LIPID PANEL FASTING TRIGLYCERI DE [MASS/VOLU ME] IN SERUM OR PLASMA 137 mg/dL 0 - 150 05/11 Specimen Type: SERUM No comment entered. Ordering Provider: KHUSHI TAPIA Report Released Date/Time: Jan 04, 2024 01:17 PM Reporting Lab: [facility] [address] [address] Performing Lab: [address] [address] [place] LIPID PANEL FASTING CHOLESTERO L IN LDL [MASS/VOLU ME] IN SERUM OR PLASMA BY CALCULATIO N 152 mg/dL 0 - 129 05/11 H Specimen Type: SERUM No comment entered. Ordering Provider: KHUHSI TAPIA Report Released Date/Time: Jan 04, 2024 01:17 PM Reporting Lab: [facility] [address] [address] Performing Lab: [facility] [address] [address] [place] LIPID PANEL FASTING CHOLESTERO L.TOTAL/CH OLESTEROL IN HDL [MASS RATIO] IN SERUM OR PLASMA 4.6 05/11 Specimen Type: SERUM No comment entered. Ordering Provider: KHUSHI TAPIA Report Released Date/Time: Jan 04, 2024 01:17 PM Reporting Lab: [facility] [address] [address] Performing Lab: [facility] [address] [address] [place] LIPID PANEL FASTING CHOLESTERO L IN HDL [MASS/VOLU ME] IN SERUM OR PLASMA 50 mg/dL 40 - 60 05/11 Specimen Type: SERUM No comment entered. Ordering Provider: KHUSHI TAPIA Report Released Date/Time: Jan 04, 2024 01:17 PM Reporting Lab: [facility] [address] [address] Performing Lab: [address] [address] [facility] CALCIUM CALCIUM [MASS/VOLU ME] IN SERUM OR PLASMA 8.9 mg/dL 8.5 - 10.2 05/11 Specimen Type: SERUM No comment entered. Ordering Provider: KHUSHI TAPIA Report Released Date/Time: Jan 04, 2024 01:17 PM Reporting Lab: [address] [address] Performing Lab: [address] [address] [facility] Vital Signs Combined list of inpatient and outpatient Vital Signs from Department of Defense and Veterans Affairs, ranging from 12 months to all on record, depending upon the facility. Vital Sign Value Date Comments Source SYSTOLIC BLOOD PRESSURE 156 06/07/2024 14:53:09 [place] DIASTOLIC BLOOD PRESSURE 73 06/07/2024 14:53:09 [place] PULSE OXIMETRY 98 06/07/2024 14:53:09 [place] PAIN 7 06/07/2024 14:53:09 [facility] TEMPERATURE 98 06/07/2024 14:53:09 [place] PULSE 56 06/07/2024 14:53:09 [place] RESPIRATION 14 06/07/2024 14:53:09 [facility] SYSTOLIC BLOOD PRESSURE 127 05/16/2024 13:06:23 [place] DIASTOLIC BLOOD PRESSURE 72 05/16/2024 13:06:23 [place] PULSE OXIMETRY 94 05/16/2024 13:06:23 [place] WEIGHT 136 05/16/2024 13:06:23 [place] BMI 24 kg/m2 05/16/2024 13:06:23 [place] TEMPERATURE 97.9 05/16/2024 13:06:23 [place] PULSE 63 05/16/2024 13:06:23 [place] SYSTOLIC BLOOD PRESSURE 143 04/25/2024 10:36:00 [facility] DIASTOLIC BLOOD PRESSURE 69 04/25/2024 10:36:00 [facility] PULSE OXIMETRY 97 04/25/2024 10:36:00 [facility] PAIN 0 04/25/2024 10:36:00 [facility] TEMPERATURE 97.6 04/25/2024 10:36:00 [facility] PULSE 60 04/25/2024 10:36:00 [facility] RESPIRATION 16 04/25/2024 10:36:00 [facility] SYSTOLIC BLOOD PRESSURE 137 04/19/2024 11:31:44 [facility] DIASTOLIC BLOOD PRESSURE 65 04/19/2024 11:31:44 [facility] PULSE OXIMETRY 98 04/19/2024 11:31:44 [facility] WEIGHT 137 04/19/2024 11:31:44 [facility] BMI 24 kg/m2 04/19/2024 11:31:44 [facility] PAIN 0 04/19/2024 11:31:44 [facility] HEIGHT 63 04/19/2024 11:31:44 [facility] TEMPERATURE 97.8 04/19/2024 11:31:44 [facility] PULSE 60 04/19/2024 11:31:44 [facility] RESPIRATION 18 04/19/2024 11:31:44 [facility] SYSTOLIC BLOOD PRESSURE 131 03/30/2024 12:56:12 [facility] DIASTOLIC BLOOD PRESSURE 65 03/30/2024 12:56:12 [facility] PULSE OXIMETRY 95 03/30/2024 12:56:12 [facility] PAIN 0 03/30/2024 12:56:12 [facility] TEMPERATURE 97.8 03/30/2024 12:56:12 [facility] PULSE 60 03/30/2024 12:56:12 [facility] RESPIRATION 12 03/30/2024 12:56:12 [facility] Encounters Combined list of: 1) Encounters from Department of Veterans Affairs facilities going backup to the last 18 months, not all VA inpatient encounters are included; 2) Encounters from the Department of Defense facilities going backup to 280 months. 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 Diagnos is: ICD-10- CM R60.9 Edema, unspeci fied MANDA TAPIA 11/09 [place] [facility] Outpatient Encounter [id number] [facility] Out[facility] Encounter [id number] 11/28 [facility] Encounter [id number] 11/30 [facility]counter [id number] 11/30 [facility] Out[facility] Encounter [id number] 12/04 [facility] Out[facility] Encounter [id number] [facility]counter [id number] 1.12/14 [facility] Encounter [id number] [facility] OFFICE O/P EST LOW 20 MIN [id number]. [id number] Diagnos is: ICD-10- CM H53.2 Diplopi MANDA Nolasco 01/03 [facility] Out[facility] Encounter [id number] 02/20 [facility] Outpatient Encounter [id number] SA KESHA RUSSO 02/22 [facility] Out[facility] Encounter [id number] 02/23 [facility] CASE MANAGEMENT [id number] MARYANA GARCIA 02/23 [facility] Outpatient Encounter [id number] 02/27 [facility] Outpatient Encounter [id number] 03/08 [facility] OFFICE O/P EST MOD 30 MIN [id number] Diagnos is: ICD-10- CM R19.4 Change in bowel habit NAHUN RANDOLPH 03/08 [facility] Outpatient Encounter [id number] 03/12 [facility] CASE MANAGEMENT [id number] VIK PASTOR 03/13 [facility] PH1 ASSMT&MGMT NQHP 21-30 [id number] Diagnos is: ICD-10- CM Z01.818 Encount er for other preproc edural examFARIBA East 03/14 [facility] PH1 ASSMT&MGMT NQHP 5-10 [id number] Diagnos is: ICD-10- CM Z01.818 Encount er for other preproc edural examFARIBA East 03/29 [facility] Outpatient Encounter [id number] 03/30 [facility] POSTOP FOLLOW-UP VISIT [id number] Diagnos is: ICD-10- CM Z12.11 Encount er for screeni ng for maligna nt neoplas m of colon DENIZ MCCULLOUGH PRECISION ASSEMBLER BENCH 03/30 [facility] DIAGNOSTIC COLONOSCOP Y [id number] Diagnos is: ICD-10- CM Z12.11 Encount er for screeni ng for maligna nt neoplas m of colon DANIELLE PHILIP MD 03/30 [facility] OFFICE O/P NEW MOD 45 MIN [id number] Diagnos is: ICD-10- CM Z86.010 0 Persona l history of colon polyps, unspeci SHILA Gonzalez MD 03/30 [facility] Outpatient Encounter [id number] 03/30 [facility] OFFICE O/P EST LOW 20 MIN [id number] Diagnos is: ICD-10- CM R19.4 Change in bowel habit GUSTAVO FRANKLIN IS E 04/19 [facility] Outpatient Encounter [id number] 04/25 [facility] OFFICE O/P NEW LOW 30 MIN [id number] Diagnos is: ICD-10- CM 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 SKYLER OVALLES 04/25 [facility] Outpatient Encounter [id number] 05/01 [facility] Encounter [id number] 05/15 [facility] [place] PH1 ASSMT&MGMT NQHP 11-20 [id number] Diagnos is: ICD-10- CM 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 [place] [facility] Outpatient Encounter [id number] 05/24 [facility] OFF/OP EST JUNE X REQ PHY/QHP [id number] Diagnos is: ICD-10- CM M25.541 Pain in joints of right hand LA SIMENTAL 06/[address] [facility] [place] [facility] Outpatient Encounter [id number] 06/07 [facility] [place] [facility] Outpatient Encounter [id number] 06/19 [facility] Outpatient Encounter [id number] LINDSEY PATTON RONNI 07/16 [facility] Outpatient Encounter [id number] LINDSEY PATTON RONNI 07/24 [facility] Outpatient Encounter [id number] 08/01 [facility] Social History Combined list of available smoking, tobacco, and other social history from Department of Defense and Veterans Affairs facilities. Social History Type Response Date Comment Source Tobacco smoking status [facility] VA-TOBACCO NEVER USED 11/10/2023 [place] History of tobacco use DC-TOBACCO NEVER USED 09/20/2022 [place] History of tobacco use DC-TOBACCO NEVER USED 07/17/2021 [facility] History of tobacco use DC-TOBACCO NEVER USED 11/12/2020 [place] History of tobacco use DC-TOBACCO NEVER USED 03/14/2020 [facility] History of tobacco use DC-TOBACCO NEVER USED 10/18/2019 [place] History of tobacco use DC-TOBACCO NEVER USED 03/14/2019 [facility] History of tobacco use DC-TOBACCO NEVER USED 02/03/2018 [place] History of tobacco use LIFETIME NON-TOBACCO USER 07/21/2017 [place] History of tobacco use LIFETIME NON-TOBACCO USER 06/29/2016 [place] History of tobacco use LIFETIME NON-TOBACCO USER 01/21/2015 [place] History of tobacco use LIFETIME NON-TOBACCO USER 06/01/2006 Patient reports he never smoked. [facility] History of tobacco use LIFETIME NON-SMOKER 04/22/2004 [place] History of tobacco use LIFETIME NON-SMOKER 07/16/2002 [facility] History of tobacco use LIFETIME NON-SMOKER 10/20/2000 [facility] This section is an empty social history section. [facility] Plan of Care List of future care activities from Department of Veterans Affairs facilities. Additional future care activities may be listed in the Assessment and Plan section. Date/Time Care Activity Care Activity Detail Facili ty 11/22/2024 AMBULATORY - MEDICINE AMBULATORY - MEDICI [facility] Advance Directives List of completed, amended, or rescinded Advance Directives on record at Department of Veterans Affairs facilities. An actual copy of the Directive is not included. Date Advance Directive Provider Source 06/18/2010 ADVANCE DIRECTIVE AMAYA REYES 06/08/2010 ADVANCE DIRECTIVE AMAYA REYES
--- OUTSIDE RECORDS SUMMARY | 2024-10-02 14:10 | XMS_ITS | Clinical Summary ---
Author Organization [facility] Address [address] [place] [address] Care Team Providers Care Cosmetics Counter Manager Name Role Phone Desean Monte Primary Care Provider Social History Tobacco Use Types Packs/Day Years [...] age to complete this topic Care Teams Cosmetics Counter Manager Relationship Specialty Start Date End Date Desean Monte PA [address] [place] [address] PCP - General Physician Perlite Grinder 07/17/15
== END 2024-10-02 14:04 | disposition home or self-care (01) ==
LOC: HO.HUSH 13:20
PROVIDERS: PCP Physician Assistant Medical; Visit Provider Urology
DX: C61 Malignant neoplasm of prostate (principal); Z13.9 Encounter for screening, unspecified
CPT/HCPCS: 99214; G2211

== ENCOUNTER → 2024-10-02 13:19 | Outpatient (BNVA) | payer OTHER, SELFPAY | PROVIDERS: PCP Physician Assistant Medical; Visit Provider Urology | DX: C61 Malignant neoplasm of prostate (principal) | CPT/HCPCS: 51798; 81003; 99212 ==